=== PATIENT | female | born 1975 | race American Indian/Alaskan Native ===

== ENCOUNTER 2016-11-13 19:16 | Emergency (ER) | payer MEDICAID ==
[2016-11-13] MEDS ORDERED: Thiamine 100 MG, Folic Acid 1 MG, MVI, Adult with Vitamin K 10 ML in Lactated Ringers 1... IV ONE ×4 (19:40)
[2016-11-13] MEDS ORDERED: Famotidine 20 MG/2 ML SDV IVPUSH ONE (19:40)
[2016-11-13] MEDS ORDERED: Ondansetron 4 MG/2 ML SDV IV ONE (19:42)
[2016-11-13] MEDS ORDERED: Ketorolac 30 MG/ML SDV IVPUSH ONE (19:43)
--- NOTE | 2016-11-13 19:44 | EDM.PDOC ---
ED HPI GENERAL MEDICAL PROBLEM - General Chief Complaint: Back Pain or Injury Stated Complaint: PAIN UP BACK, [id number] Time Seen by Provider: 11/13/16 19:20 Source of Information: Reports: Patient History Limitations: Reports: No Limitations - History of Present Illness INITIAL COMMENTS - FREE TEXT/NARRATIVE: Sudden onset mid back and left scapular pain for past 1.5 hours. Has had similar pain in past with no findings. Pain started while sitting in chair. Daughter reports no ETOH for 3 years and started drinking on Friday. Patient admits to beer and 40 Ounce today, weekend had a couple mixed shots of vodka. no prior nausea or vomiting. Has not tried anything for pain. Onset: Today, Sudden Location: Reports: Abdomen, Back Quality: Reports: Sharp Severity: Moderate Lower Back Pain Score (Numeric/FACES): 8 - Related Data Allergies Allergy/AdvReac Type Severity Reaction Status Date / Time acetaminophen Allergy Hives Verified 11/13/16 19:22 [From Comtrex Cold-Cough] dextromethorphan Allergy Hives Verified 11/13/16 19:22 [From Comtrex Cold-Cough] phenylephrine Allergy Hives Verified 11/13/16 19:22 [From Comtrex Cold-Cough] wool Allergy itchy Uncoded 03/18/15 02:59 Home Meds: Home Meds Pantoprazole [Protonix] 40 mg PO BID 10/05/14 [History] Potassium Chloride [Klor-Con M20] 20 meq PO DAILY 10/05/14 [History] Ferrous Sulfate [Ferrous Sulfate] 1 mg PO BID 03/18/15 [History] Past Medical History - Past Health History Medical/Surgical History: Denies Medical/Surgical History Gastrointestinal History: Reports: Cirrhosis, GI Bleed Other Gastrointestinal History: liver cirrhosis, gallbladder polyps [employer]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: Hematologic History: Reports: Anemia - Infectious Disease History Infectious Disease History: Reports: None - Past Surgical History GI Surgical History: Reports: None Social & Family History - Tobacco Use Smoking Status *Q: Current Every Day Smoker Years of Tobacco use: 1 Packs/Tins Daily: 0.2 Used Tobacco, but Quit: No Month Tobacco Last Used: august 2014 Second Hand Smoke Exposure: Yes - Alcohol Use Days Per Week of Alcohol Use: 3 Number of Drinks Per Day: 18 Total Drinks Per Week: 54 - Recreational Drug Use Recreational Drug Use: No Drug Use in Last 12 Months: No ED ROS GENERAL - Review of Systems Review Of Systems: ROS reveals no pertinent complaints other than HPI. ED EXAM, UPPER BACK/NECK PAIN - Physical Exam Exam: See Below Exam Limited By: No Limitations General Appearance: Alert, Moderate Distress, Other (strong ETOH odor) Eye Exam: Bilateral Eye: EOMI (sclera injected) Ears Exam: Normal External Exam Nose Exam: Normal Inspection Throat/Mouth Exam: Normal Inspection Cardiovascular/Respiratory: Regular Rate, Rhythm, Normal Peripheral Pulses GI/Abdominal: Normal Bowel Sounds, Soft, No Distention, Tender (epigastric and left upper quadrant). No: Distended, Guarding Back Exam: Paraspinal Tenderness (thoracic left worse below scapula ). No: CVA Tenderness (L), CVA Tenderness (R) Extremities: Normal Range of Motion Psychiatric: Other (restless) Course - Vital Signs Last Recorded V/S: Last Vital Signs Temp 97.9 F 11/13/16 19:18 Pulse 81 11/13/16 19:18 Resp 18 11/13/16 19:18 BP 131/84 11/13/16 19:18 Pulse Ox 98 11/13/16 19:18 - Orders/Labs/Meds Labs: Laboratory Tests 11/13/16 11/13/16 11/13/16 Range/Units 19:48 19:48 19:48 WBC 8.4 (5.0-10.0) 10^3/uL RBC 4.19 L (4.2-5.4) 10^6/uL Hgb 12.1 (12.0-16.0) g/dL Hct 36.0 L (37.0-47.0) % MCV 85.9 (80-100) fL MCH 28.9 (27.0-34.0) pg MCHC 33.6 (33.0-35.0) g/dL Plt Count 208 (150-450) 10^3/uL Neut % (Auto) 58.3 (42.2-75.2) % Lymph % (Auto) 33.8 (20.5-50.1) % [place] % (Auto) 5.5 (2-8) % Eos % (Auto) 1.3 (1.0-3.0) % Baso % (Auto) 1.1 H (0.0-1.0) % PT 10.7 (9.0-12.0) SEC INR 1.1 (0.9-1.2) Sodium 142 (135-145) mmol/L Potassium 3.7 (3.6-5.0) mmol/L Chloride 106 (101-111) mmol/L Carbon Dioxide 23.0 (21.0-31.0) mmol/L Anion Gap 16.7 BUN 9 (7-18) mg/dL Creatinine 0.7 (0.6-1.3) mg/dL Est Cr Clr Drug Dosing 103.89 mL/min Estimated GFR (MDRD) > 60 BUN/Creatinine Ratio 12.85 Glucose 82 (74-105) mg/dL Calcium 8.7 (8.4-10.2) mg/dl Total Bilirubin 0.8 (0.2-1.0) mg/dL AST 33 (10-42) IU/L ALT 24 (10-60) IU/L Alkaline Phosphatase 92 (42-121) IU/L Ammonia (11-35) umol/L Total Protein 7.8 (6.7-8.2) g/dl Albumin 4.1 (3.2-5.5) g/dl Globulin 3.7 Albumin/Globulin Ratio 1.11 Amylase 42 (28-100) U/L Lipase 28 (22-51) U/L Urine Color (YELLOW) Urine Appearance (CLEAR) Urine pH (5.0-9.0) Ur Specific Newborn (1.005-1.030) Urine Protein (NEGATIVE) Urine Glucose (UA) (NEGATIVE) Urine Ketones (NEGATIVE) Urine Occult Blood (NEGATIVE) Urine Nitrite (NEGATIVE) Urine Bilirubin (NEGATIVE) Urine Urobilinogen (0.2-1.0) mg/dL Ur Leukocyte Esterase (NEGATIVE) Urine RBC /HPF Urine WBC (0-5/HPF) /HPF Ur Epithelial Cells /HPF Urine Bacteria (0-FEW/HPF) /HPF Urine Mucus /LPF Urine Opiates Screen (NEGATIVE) Ur Oxycodone Screen (NEGATIVE) Urine Methadone Screen (NEGATIVE) Ur Barbiturates Screen (NEGATIVE) U Tricyclic Antidepress (NEGATIVE) Ur Phencyclidine Scrn (NEGATIVE) Ur Amphetamine Screen (NEGATIVE) U Methamphetamines Scrn (NEGATIVE) Urine MDMA Screen (NEGATIVE) U Benzodiazepines Scrn (NEGATIVE) Urine Cocaine Screen (NEGATIVE) U Marijuana (THC) Screen (NEGATIVE) Ethyl Alcohol 211 mg/dL 06/14/17 06/14/17 06/14/17 Range/Units 19:48 20:48 20:48 WBC (5.0-10.0) 10^3/uL RBC (4.2-5.4) 10^6/uL Hgb (12.0-16.0) g/dL Hct (37.0-47.0) % MCV (80-100) fL MCH (27.0-34.0) pg MCHC (33.0-35.0) g/dL Plt Count (150-450) 10^3/uL Neut % (Auto) (42.2-75.2) % Lymph % (Auto) (20.5-50.1) % [place] % (Auto) (2-8) % Eos % (Auto) (1.0-3.0) % Baso % (Auto) (0.0-1.0) % PT (9.0-12.0) SEC INR (0.9-1.2) Sodium (135-145) mmol/L Potassium (3.6-5.0) mmol/L Chloride (101-111) mmol/L Carbon Dioxide (21.0-31.0) mmol/L Anion Gap BUN (7-18) mg/dL Creatinine (0.6-1.3) mg/dL Est Cr Clr Drug Dosing mL/min Estimated GFR (MDRD) BUN/Creatinine Ratio Glucose (74-105) mg/dL Calcium (8.4-10.2) mg/dl Total Bilirubin (0.2-1.0) mg/dL AST (10-42) IU/L ALT (10-60) IU/L Alkaline Phosphatase (42-121) IU/L Ammonia 20 (11-35) umol/L Total Protein (6.7-8.2) g/dl Albumin (3.2-5.5) g/dl Globulin Albumin/Globulin Ratio Amylase (28-100) U/L Lipase (22-51) U/L Urine Color Yellow (YELLOW) Urine Appearance Slightly cloudy (CLEAR) Urine pH 6.0 (5.0-9.0) Ur Specific Newborn 1.010 (1.005-1.030) Urine Protein Negative (NEGATIVE) Urine Glucose (UA) Negative (NEGATIVE) Urine Ketones Negative (NEGATIVE) Urine Occult Blood Negative (NEGATIVE) Urine Nitrite Negative (NEGATIVE) Urine Bilirubin Negative (NEGATIVE) Urine Urobilinogen >=8.0 H (0.2-1.0) mg/dL Ur Leukocyte Esterase Negative (NEGATIVE) Urine RBC 0-5 /HPF Urine WBC 0-5 (0-5/HPF) /HPF Ur Epithelial Cells Few /HPF Urine Bacteria Rare (0-FEW/HPF) /HPF Urine Mucus Rare /LPF Urine Opiates Screen Negative (NEGATIVE) Ur Oxycodone Screen Negative (NEGATIVE) Urine Methadone Screen Negative (NEGATIVE) Ur Barbiturates Screen Negative (NEGATIVE) U Tricyclic Antidepress Negative (NEGATIVE) Ur Phencyclidine Scrn Negative (NEGATIVE) Ur Amphetamine Screen Negative (NEGATIVE) U Methamphetamines Scrn Negative (NEGATIVE) Urine MDMA Screen Negative (NEGATIVE) U Benzodiazepines Scrn Negative (NEGATIVE) Urine Cocaine Screen Negative (NEGATIVE) U Marijuana (THC) Screen Positive H (NEGATIVE) Ethyl Alcohol mg/dL Meds: Medications Discontinued Medications Generic Name Dose Route Start Last Admin Trade Name Freq PRN Reason Stop Dose Admin Famotidine 20 mg 11/13/16 19:40 11/13/16 20:03 Pepcid IVPUSH 11/13/16 19:41 20 mg ONETIME ONE Administration Thiamine HCl 100 mg/ Folic 1,011.2 mls @ 999 mls/hr 11/13/16 19:40 11/13/16 20:09 Acid 1 mg/ Multivitamins/ IV 11/13/16 20:40 999 mls/hr Minerals 10 ml/ Lactated .BOLUS ONE Administration Ringer's Ketorolac Tromethamine 30 mg 11/13/16 19:43 11/13/16 19:59 Toradol IVPUSH 11/13/16 19:44 30 mg ONETIME ONE Administration Ondansetron HCl 4 mg 11/13/16 19:42 11/13/16 19:57 Zofran IV 11/13/16 19:43 4 mg ONETIME ONE Administration - Radiology Interpretation Free Text/Narrative:: pain improved visiting with family texting on phone, sitting upright in bed. Departure - Departure Time of Disposition: 21:12 Disposition: Home, Self-Care 01 Condition: Good Clinical Impression: Gastritis Qualifiers: Gastritis type: alcoholic Chronicity: acute Gastritis bleeding: without bleeding Qualified Code(s): K29.20 - Alcoholic gastritis without bleeding - Discharge Information Instructions: Gastritis, Adult, [id number] Forms: ED Department Discharge Additional Instructions: no alcohol bland diet follow up in clinic next week protonix as previously ordered
[2016-11-13 20:20] LABS: CHLORIDE,CL 106 mmol/L (101-111); SODIUM,NA 142 mmol/L (135-145)
[2016-11-13 21:20] VITALS: BP 137/76
== END 2016-11-13 21:21 | disposition home or self-care (01) ==
LOC: DL.ED 19:16
DX: K29.20 Alcoholic gastritis without bleeding (principal); F17.210 Nicotine dependence, cigarettes, uncomplicated; Z88.8 Allergy status to other drugs, medicaments and biological substances; Z91.048 Other nonmedicinal substance allergy status; D64.9 Anemia, unspecified
CPT/HCPCS: 36415; 80053; 80305; 81001; 82140; 82150; 83690; 85025; 85610; 96365; 96375; 99283; G0480; J1885; J2405; J3411; J7120; J3490; S0028

== ENCOUNTER 2017-03-11 18:34 | Emergency (ER) | payer MEDICAID ==
[2017-03-11 18:44] VITALS: BP 107/71
--- NOTE | 2017-03-11 20:33 | EDM.PDOC ---
ED HPI GENERAL MEDICAL PROBLEM - General Chief Complaint: Lower Extremity Injury/Pain Stated Complaint: FELL, HURT KNEE Time Seen by Provider: 03/11/17 20:25 Source of Information: Reports: Patient History Limitations: Reports: No Limitations - History of Present Illness INITIAL COMMENTS - FREE TEXT/NARRATIVE: This 42 yo female patient reports to the ED with left knee pain due to falling off her deck at about 1700 tonight. The patient reports increased pain with movement and walking. The patient reports no previous injuries to the knee. Onset: Today Onset Date: 03/11/17 Onset Time: 17:00 Duration: Constant Location: Reports: Lower Extremity, Left Quality: Reports: Ache, Dull Severity: Moderate Improves with: Reports: None Worsens with: Reports: None Associated Symptoms: Reports: No Other Symptoms Left Knee Pain Score (Numeric/FACES): 3 - Related Data Allergies Allergy/AdvReac Type Severity Reaction Status Date / Time acetaminophen Allergy Hives Verified 03/11/17 18:44 [From Comtrex Cold-Cough] dextromethorphan Allergy Hives Verified 03/11/17 18:44 [From Comtrex Cold-Cough] phenylephrine Allergy Hives Verified 03/11/17 18:44 [From Comtrex Cold-Cough] wool Allergy itchy Uncoded 03/11/17 18:44 Home Meds: Home Meds Pantoprazole [Protonix] 40 mg PO BID 10/05/14 [History] Potassium Chloride [Klor-Con M20] 20 meq PO DAILY 10/05/14 [History] Ferrous Sulfate [Ferrous Sulfate] 1 mg PO BID 03/18/15 [History] Past Medical History - Past Health History Medical/Surgical History: Denies Medical/Surgical History Gastrointestinal History: Reports: Cirrhosis, GI Bleed Other Gastrointestinal History: liver cirrhosis, gallbladder 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: Hematologic History: Reports: Anemia - Infectious Disease History Infectious Disease History: Reports: TB - Past Surgical History GI Surgical History: Reports: None Social & Family History - Tobacco Use Smoking Status *Q: Never Smoker Years of Tobacco use: 1 Packs/Tins Daily: 0.2 Used Tobacco, but Quit: No Month Tobacco Last Used: august 2014 Second Hand Smoke Exposure: Yes - Alcohol Use Days Per Week of Alcohol Use: 3 Number of Drinks Per Day: 18 Total Drinks Per Week: 54 - Recreational Drug Use Recreational Drug Use: No Drug Use in Last 12 Months: No Review of Systems - Review of Systems Review Of Systems: ROS reveals no pertinent complaints other than HPI. ED EXAM, GENERAL - Physical Exam Exam: See Below Exam Limited By: No Limitations General Appearance: Alert, WD/WN, Moderate Distress Eye Exam: Bilateral Eye: EOMI, Normal Inspection, PERRL Ears: Normal External Exam, Normal Canal, Hearing Grossly Normal, Normal TMs Nose: Normal Inspection, Normal Mucosa, No Blood Throat/Mouth: Normal Inspection, Normal Lips, Normal Teeth, Normal Gums, Normal Oropharynx, Normal Voice, No Airway Compromise Head: Atraumatic, Normocephalic Neck: Normal Inspection, Supple, Non-Tender, Full Range of Motion Respiratory/Chest: No Respiratory Distress, Lungs Clear, Normal Breath Sounds, No Accessory Muscle Use, Chest Non-Tender Cardiovascular: Normal Peripheral Pulses, Regular Rate, Rhythm, No Edema, No Gallop, No JVD, No Murmur, No Rub GI/Abdominal: Normal Bowel Sounds, Soft, Non-Tender, No Organomegaly, No Distention, No Abnormal Bruit, No Mass (Female) Exam: Deferred Rectal (Female) Exam: Deferred Back Exam: Normal Inspection, Full Range of Motion, NT Extremities: Leg Pain (left knee pain (bruising to left medial knee)), Limited Range of Motion Neurological: Alert, Oriented, CN II-XII Intact, Normal Cognition, Normal Gait, Normal Reflexes, No Motor/Sensory Deficits Psychiatric: Normal Affect, Normal Mood Skin Exam: Warm, Dry, Intact, Normal Color, No Rash Lymphatic: No Adenopathy Course - Vital Signs Last Recorded V/S: Last Vital Signs Temp 36.4 C 03/11/17 18:40 Pulse 92 03/11/17 18:40 Resp 18 03/11/17 18:40 BP 107/71 03/11/17 18:40 Pulse Ox 99 03/11/17 18:40 Departure - Departure Time of Disposition: 20:34 Disposition: Home, Self-Care 01 Condition: Fair Clinical Impression: Contusion of left knee Qualifiers: Encounter type: initial encounter Qualified Code(s): S80.02XA - Contusion of left knee, initial encounter - Discharge Information Instructions: Knee Immobilizer, [id number], Contusion, [id number] Care Plan Goals: The patient was advised of the examination and x-ray results during the visit. The patient was placed in a knee immobilizer and given a set of crutches. The patient should rest, ice and elevate her left knee over the next 24 hours. If the patient has any additional symptoms or further concerns, the patient should follow-up with her primary care facility or return to the ED.
== END 2017-03-11 20:48 | disposition home or self-care (01) ==
LOC: DL.ED 18:34
DX: S80.02XA Contusion of left knee, initial encounter (principal); Z88.8 Allergy status to other drugs, medicaments and biological substances; W17.89XA Other fall from one level to another, initial encounter
CPT/HCPCS: 73562-LT; 99283

== ENCOUNTER 2017-04-21 15:07 | Emergency (ER) | payer MEDICAID ==
--- NOTE | 2017-04-21 16:43 | CR ---
Clinical history: 42-year-old female with left-sided chest wall and rib pain. Interpretation: PA and 2 oblique left rib detail films (BB marker high over the left axilla) unremark able. No sign of pathologic skeletal lesion, left rib fracture, underlying lung contusion, dependent pleura l effusion or... left-sided pneumothorax. Ipsilateral clavicle, scapula and proximal humerus unremarkable. Normal cardiac silhouette without alveolar edema or effusion. Mild bronchitic pattern but no lung mass or focal lobar pneumonia.
[2017-04-21 16:47] LABS: CHLORIDE,CL 103 mmol/L (101-111); SODIUM,NA 141 mmol/L (135-145)
[2017-04-21] MEDS ORDERED: Ketorolac 30 MG/ML SDV IM ONE (17:02)
--- NOTE | 2017-04-21 17:08 | EDM.PDOC ---
ED HPI GENERAL MEDICAL PROBLEM - General Chief Complaint: Chest Pain Stated Complaint: HEART HURTING Time Seen by Provider: 04/21/17 15:20 Source of Information: Reports: Patient History Limitations: Reports: No Limitations - History of Present Illness INITIAL COMMENTS - FREE TEXT/NARRATIVE: This 42 yo female patient reports to the ED with right sided anterior chest pain. The patient reports no history of trauma or a fall, but has pain when she touches her left chest. The patient has not taken anything for temporary symptom relief. Onset: Today Duration: Constant Location: Reports: Chest (left anterior chest) Quality: Reports: Ache, Sharp Severity: Moderate Improves with: Reports: None Worsens with: Reports: Other (palpation) Associated Symptoms: Reports: Chest Pain Chest Pain Score (Numeric/FACES): 7 - Related Data Allergies Allergy/AdvReac Type Severity Reaction Status Date / Time acetaminophen Allergy Hives Verified 03/11/17 18:44 [From Comtrex Cold-Cough] dextromethorphan Allergy Hives Verified 03/11/17 18:44 [From Comtrex Cold-Cough] phenylephrine Allergy Hives Verified 03/11/17 18:44 [From Comtrex Cold-Cough] wool Allergy itchy Uncoded 03/11/17 18:44 Home Meds: Home Meds Pantoprazole [Protonix] 40 mg PO BID 10/05/14 [History] Potassium Chloride [Klor-Con M20] 20 meq PO DAILY 10/05/14 [History] Ferrous Sulfate [Ferrous Sulfate] 1 mg PO BID 03/18/15 [History] Past Medical History - Past Health History Medical/Surgical History: Denies Medical/Surgical History Gastrointestinal History: Reports: Cirrhosis, GI Bleed Other Gastrointestinal History: liver cirrhosis, gallbladder 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: Hematologic History: Reports: Anemia - Infectious Disease History Infectious Disease History: Reports: TB - Past Surgical History GI Surgical History: Reports: None Social & Family History - Tobacco Use Smoking Status *Q: Never Smoker Years of Tobacco use: 1 Packs/Tins Daily: 0.2 Used Tobacco, but Quit: No Month Tobacco Last Used: august 2014 Second Hand Smoke Exposure: Yes - Alcohol Use Days Per Week of Alcohol Use: 3 Number of Drinks Per Day: 18 Total Drinks Per Week: 54 - Recreational Drug Use Recreational Drug Use: No Drug Use in Last 12 Months: No ED ROS GENERAL - Review of Systems Review Of Systems: ROS reveals no pertinent complaints other than HPI. ED EXAM, GENERAL - Physical Exam Exam: See Below Exam Limited By: No Limitations General Appearance: Alert, WD/WN, Moderate Distress Eye Exam: Bilateral Eye: EOMI, Normal Inspection, PERRL Ears: Normal External Exam, Normal Canal, Hearing Grossly Normal, Normal TMs Nose: Normal Inspection, Normal Mucosa, No Blood Throat/Mouth: Normal Inspection, Normal Lips, Normal Teeth, Normal Gums, Normal Oropharynx, Normal Voice, No Airway Compromise Head: Atraumatic, Normocephalic Neck: Normal Inspection, Supple, Non-Tender, Full Range of Motion Respiratory/Chest: No Respiratory Distress, Lungs Clear, Normal Breath Sounds, No Accessory Muscle Use, Other (left sided tenderness to palpation of the pectoral muscle. ) Cardiovascular: Normal Peripheral Pulses, Regular Rate, Rhythm, No Edema, No Gallop, No JVD, No Murmur, No Rub GI/Abdominal: Normal Bowel Sounds, Soft, Non-Tender, No Organomegaly, No Distention, No Abnormal Bruit, No Mass (Female) Exam: Deferred Rectal (Female) Exam: Deferred Back Exam: Normal Inspection, Full Range of Motion, NT Extremities: Normal Inspection, Normal Range of Motion, Non-Tender, Normal Capillary Refill, No Pedal Edema Neurological: Alert, Oriented, CN II-XII Intact, Normal Cognition, Normal Gait, Normal Reflexes, No Motor/Sensory Deficits Psychiatric: Normal Affect, Normal Mood Skin Exam: Warm, Dry, Intact, Normal Color, No Rash Lymphatic: No Adenopathy Course - Vital Signs Last Recorded V/S: Last Vital Signs Temp 36.6 C 04/21/17 15:09 Pulse 91 04/21/17 15:09 Resp 18 04/21/17 15:09 BP 138/101 H 04/21/17 15:09 Pulse Ox 99 04/21/17 15:09 - Orders/Labs/Meds Labs: Laboratory Tests 04/21/17 04/21/17 Range/Units 16:22 16:22 WBC 6.7 (5.0-10.0) 10^3/uL RBC 4.59 (4.2-5.4) 10^6/uL Hgb 12.6 (12.0-16.0) g/dL Hct 39.0 (37.0-47.0) % MCV 85.0 (80-100) fL MCH 27.5 (27.0-34.0) pg MCHC 32.3 L (33.0-35.0) g/dL Plt Count 187 (150-450) 10^3/uL Neut % (Auto) 59.1 (42.2-75.2) % Lymph % (Auto) 23.1 (20.5-50.1) % [place] % (Auto) 10.3 H (2-8) % Eos % (Auto) 5.7 H (1.0-3.0) % Baso % (Auto) 1.8 H (0.0-1.0) % Add Manual Diff Yes Neutrophils % (Manual) 62 (42-75) % Lymphocytes % (Manual) 23 (20-50) % Monocytes % (Manual) 8 (2-8) % Eosinophils % (Manual) 7 H (1-3) % Sodium 141 (135-145) mmol/L Potassium 3.5 L (3.6-5.0) mmol/L Chloride 103 (101-111) mmol/L Carbon Dioxide 24.0 (21.0-31.0) mmol/L Anion Gap 17.5 BUN 5 L (7-18) mg/dL Creatinine 0.6 (0.6-1.3) mg/dL Est Cr Clr Drug Dosing 115.51 mL/min Estimated GFR (MDRD) > 60 BUN/Creatinine Ratio 8.33 Glucose 89 (74-105) mg/dL Calcium 8.9 (8.4-10.2) mg/dl Total Bilirubin 0.9 (0.2-1.0) mg/dL AST 130 H (10-42) IU/L ALT 98 H (10-60) IU/L Alkaline Phosphatase 113 (42-121) IU/L Total Protein 9.0 H (6.7-8.2) g/dl Albumin 4.4 (3.2-5.5) g/dl Globulin 4.6 Albumin/Globulin Ratio 0.96 Meds: Medications Discontinued Medications Generic Name Dose Route Start Last Admin Trade Name Freq PRN Reason Stop Dose Admin Ketorolac Tromethamine 60 mg 04/21/17 17:02 Toradol IM 04/21/17 17:03 ONETIME ONE Departure - Departure Time of Disposition: 17:05 Disposition: Home, Self-Care 01 Condition: Fair Clinical Impression: Strain of chest wall Qualifiers: Encounter type: initial encounter Qualified Code(s): S29.011A - Strain of muscle and tendon of front wall of thorax, initial encounter - Discharge Information Instructions: Muscle Strain, [id number] Forms: ED Department Discharge Care Plan Goals: The patient and family were advised of the examination, lab and x-ray results during the visit. The patient was given an injection of Toradol while in the ED. The patient was discharged with a script for Toradol (10 mg) #20 to take 1 by mouth every 6 hours for pain. If the patient has any additional symptoms or concerns, the patient should follow-up with her primary care facility for continued evaluation and further management.
[2017-04-21 18:09] VITALS: BP 138/90
== END 2017-04-21 17:33 | disposition home or self-care (01) ==
LOC: DL.ED 15:07
DX: S29.011A Strain of muscle and tendon of front wall of thorax, initial encounter (principal); Z77.22 Contact with and (suspected) exposure to environmental tobacco smoke (acute) (chronic); Z79.899 Other long term (current) drug therapy; Z88.6 Allergy status to analgesic agent; Z88.8 Allergy status to other drugs, medicaments and biological substances; Z91.048 Other nonmedicinal substance allergy status; X58.XXXA Exposure to other specified factors, initial encounter
CPT/HCPCS: 36415; 71101; 80053; 85025; 96372; 99285; J1885

== ENCOUNTER 2018-03-04 14:53 | Emergency (ER) | payer MEDICAID ==
--- NOTE | 2018-03-04 14:55 | EDM.PDOC ---
ED HPI GENERAL MEDICAL PROBLEM - General Chief Complaint: Abdominal Pain Stated Complaint: ABOMINAL PAIN Time Seen by Provider: 03/04/18 14:54 Source of Information: Reports: Patient, EMS, Family, Old Records, RN, RN Notes Reviewed History Limitations: Reports: Intoxication - History of Present Illness INITIAL COMMENTS - FREE TEXT/NARRATIVE: Pt arrives to ER from home by ambulance with c/o onset of lower abdominal pain and fevers yesterday. Pt denies nausea, vomiting, diarrhea, constipation, or dysuria. Also denies cough, headache, neck pain or stiffness, or sore throat. She admits to current menses. Admits to heavy daily alcohol consumption. She reports Hx of alcoholic cirrhosis. Onset: Gradual Duration: Constant Location: Reports: Abdomen Quality: Reports: Ache Severity: Severe Improves with: Reports: None Worsens with: Reports: None Associated Symptoms: Reports: No Other Symptoms Bilateral Lower Abdomen Pain Score (Numeric/FACES): 7 - Related Data Allergies Allergy/AdvReac Type Severity Reaction Status Date / Time acetaminophen Allergy Hives Verified 03/04/18 15:01 [From Comtrex Cold-Cough] dextromethorphan Allergy Hives Verified 03/04/18 15:01 [From Comtrex Cold-Cough] phenylephrine Allergy Hives Verified 03/04/18 15:01 [From Comtrex Cold-Cough] wool Allergy itchy Uncoded 03/04/18 15:01 Home Meds: Home Meds . 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 HAND History: Reports: LMP (Approximate): Menstruating Psychiatric History: Reports: Addiction (alcohol) Hematologic History: Reports: Anemia - Infectious Disease History Infectious Disease History: Reports: TB - Past Surgical History GI Surgical History: Reports: None Social & Family History - Family History Family Medical History: Unobtainable - Tobacco Use Smoking Status *Q: Current Every Day Smoker Tobacco Use Within Last Twelve Months: Cigarettes - Alcohol Use Alcohol Use History: Yes Days Per Week of Alcohol Use: 7 (Heavy daily drinker per family.) Alcohol Use Frequency: Daily - Recreational Drug Use Recreational Drug Use: No - Living Situation & Occupation Living situation: Reports: with Family Occupation: Unemployed ED ROS GENERAL - Review of Systems Review Of Systems: ROS reveals no pertinent complaints other than HPI. ED EXAM, GI/ABD - Physical Exam Exam: See Below Exam Limited By: Intoxication General Appearance: Alert, No Apparent Distress, Other (acutely ill but non- toxic appearing) Eyes: Bilateral: Normal Appearance, EOMI Ears: Normal External Exam, Hearing Grossly Normal Nose: Normal Inspection, Normal Mucosa, No Blood Throat/Mouth: Normal Inspection, Normal Lips, Normal Oropharynx, Normal Voice, No Airway Compromise Head: Atraumatic, Normocephalic Neck: Normal Inspection, Supple, Non-Tender, Full Range of Motion, Other (No nuchal rigidity). No: Lymphadenopathy (L), Lymphadenopathy (R) Respiratory/Chest: No Respiratory Distress, Lungs Clear, Normal Breath Sounds, No Accessory Muscle Use, Chest Non-Tender Cardiovascular: Regular Rate, Rhythm, No Edema, Tachycardia GI/Abdominal Exam: Normal Bowel Sounds, Soft, No Distention, No Abnormal Bruit, Pelvis Stable, Guarding, Tender (acutely tender to palpation at RLQ abdomen). No: Rigid, Rebound (Female) Exam: Deferred, Vaginal Bleeding (menses) Rectal (Female) Exam: Deferred Back Exam: Full Range of Motion, CVA Tenderness (R). No: CVA Tenderness (L) Extremities: Normal Inspection, Normal Range of Motion, Non-Tender, Normal Capillary Refill, No Pedal Edema Neurological: Alert, Oriented, CN II-XII Intact, Normal Cognition, No Motor/ Sensory Deficits Psychiatric: Normal Affect, Normal Mood Skin Exam: Warm, Dry, Intact, Normal Color, No Rash Course - Vital Signs Last Recorded V/S: Last Vital Signs Temp 39.4 C H 03/04/18 16:47 Pulse 117 H 03/04/18 16:47 Resp 22 H 03/04/18 16:47 BP 109/65 03/04/18 16:47 Pulse Ox 95 03/04/18 16:47 - Orders/Labs/Meds Orders: Active Orders 24 hr Category Date Time Status Peripheral IV Care [RC] . DIRECTED Care 03/04/18 15:15 Active CULTURE BLOOD [BC] Stat Lab 03/04/18 15:25 Received CULTURE BLOOD [BC] Stat Lab 03/04/18 15:30 Results CULTURE STREP A CONFIRMATION [RM] Stat Lab 03/04/18 17:04 Results STREP SCRN A RAPID W CULT CONF [RM] Stat Lab 03/04/18 17:04 Results Sodium Chloride 0.9% [Normal Saline] 1,000 ml Med 03/04/18 18:10 Active IV .BOLUS Sodium Chloride 0.9% [Saline Flush] Med 03/04/18 15:15 Active 10 ml FLUSH ASDIRECTED PRN Blood Culture x2 Reflex Set [OM.PC] Stat Oth 03/04/18 15:15 Ordered Peripheral IV Insertion Adult [OM.PC] Stat Oth 03/04/18 15:15 Ordered Medication Orders Sodium Chloride (Normal Saline) 1,000 mls @ 999 mls/hr IV .BOLUS ONE Stop: 03/04/18 19:10 Last Admin: 03/04/18 18:13 Dose: 999 mls/hr Sodium Chloride (Saline Flush) 10 ml FLUSH ASDIRECTED PRN PRN Reason: Keep Vein Open Labs: Laboratory Tests 03/04/18 03/04/18 03/04/18 Range/Units 15:25 15:25 15:25 WBC 21.3 H (5.0-10.0) 10^3/uL RBC 3.51 L (4.2-5.4) 10^6/uL Hgb 8.0 L D (12.0-16.0) g/dL Hct 26.6 L (37.0-47.0) % MCV 75.8 L D (80-100) fL MCH 22.8 L (27.0-34.0) pg MCHC 30.1 L (33.0-35.0) g/dL Plt Count 162 (150-450) 10^3/uL Neut % (Auto) 89.5 H (42.2-75.2) % Lymph % (Auto) 7.4 L (20.5-50.1) % [place] % (Auto) 2.5 (2-8) % Eos % (Auto) 0.3 L (1.0-3.0) % Baso % (Auto) 0.3 (0.0-1.0) % Sodium 138 (135-145) mmol/L Potassium 3.4 L (3.6-5.0) mmol/L Chloride 104 (101-111) mmol/L Carbon Dioxide 22.0 (21.0-31.0) mmol/L Anion Gap 15.4 BUN 6 L (7-18) mg/dL Creatinine 0.5 L (0.6-1.3) mg/dL Est Cr Clr Drug Dosing 137.21 mL/min Estimated GFR (MDRD) > 60 BUN/Creatinine Ratio 12.00 Glucose 91 (74-105) mg/dL Lactic Acid (0.5-2.2) mmol/L Calcium 7.6 L (8.4-10.2) mg/dl Total Bilirubin 1.0 (0.2-1.0) mg/dL AST 48 H (10-42) IU/L ALT 44 (10-60) IU/L Alkaline Phosphatase 126 H (42-121) IU/L Ammonia 27 (11-35) umol/L Total Protein 7.9 (6.7-8.2) g/dl Albumin 3.4 (3.2-5.5) g/dl Globulin 4.5 Albumin/Globulin Ratio 0.76 Amylase 52 (28-100) U/L Lipase 20 L (22-51) U/L Urine Color (YELLOW) Urine Appearance (CLEAR) Urine pH (5.0-9.0) Ur Specific [place] (1.005-1.030) Urine Protein (NEGATIVE) Urine Glucose (UA) (NEGATIVE) Urine Ketones (NEGATIVE) Urine Occult Blood (NEGATIVE) Urine Nitrite (NEGATIVE) Urine Bilirubin (NEGATIVE) Urine Urobilinogen (0.2-1.0) mg/dL Ur Leukocyte Esterase (NEGATIVE) Urine RBC /HPF Urine WBC (0-5/HPF) /HPF Ur Epithelial Cells /HPF Urine Bacteria (0-FEW/HPF) /HPF Urine HCG, Qual Urine Opiates Screen (NEGATIVE) Ur Oxycodone Screen (NEGATIVE) Urine Methadone Screen (NEGATIVE) Ur Barbiturates Screen (NEGATIVE) U Tricyclic Antidepress (NEGATIVE) Ur Phencyclidine Scrn (NEGATIVE) Ur Amphetamine Screen (NEGATIVE) U Methamphetamines Scrn (NEGATIVE) Urine MDMA Screen (NEGATIVE) U Benzodiazepines Scrn (NEGATIVE) Urine Cocaine Screen (NEGATIVE) U Marijuana (THC) Screen (NEGATIVE) Ethyl Alcohol 365 mg/dL 03/04/18 03/04/18 03/04/18 Range/Units 15:25 17:11 17:11 WBC (5.0-10.0) 10^3/uL RBC (4.2-5.4) 10^6/uL Hgb (12.0-16.0) g/dL Hct (37.0-47.0) % MCV (80-100) fL MCH (27.0-34.0) pg MCHC (33.0-35.0) g/dL Plt Count (150-450) 10^3/uL Neut % (Auto) (42.2-75.2) % Lymph % (Auto) (20.5-50.1) % [place] % (Auto) (2-8) % Eos % (Auto) (1.0-3.0) % Baso % (Auto) (0.0-1.0) % Sodium (135-145) mmol/L Potassium (3.6-5.0) mmol/L Chloride (101-111) mmol/L Carbon Dioxide (21.0-31.0) mmol/L Anion Gap BUN (7-18) mg/dL Creatinine (0.6-1.3) mg/dL Est Cr Clr Drug Dosing mL/min Estimated GFR (MDRD) BUN/Creatinine Ratio Glucose (74-105) mg/dL Lactic Acid 2.9 H (0.5-2.2) mmol/L Calcium (8.4-10.2) mg/dl Total Bilirubin (0.2-1.0) mg/dL AST (10-42) IU/L ALT (10-60) IU/L Alkaline Phosphatase (42-121) IU/L Ammonia (11-35) umol/L Total Protein (6.7-8.2) g/dl Albumin (3.2-5.5) g/dl Globulin Albumin/Globulin Ratio Amylase (28-100) U/L Lipase (22-51) U/L Urine Color Yellow (YELLOW) Urine Appearance Clear (CLEAR) Urine pH 7.0 (5.0-9.0) Ur Specific [place] 1.015 (1.005-1.030) Urine Protein Negative (NEGATIVE) Urine Glucose (UA) Negative (NEGATIVE) Urine Ketones Negative (NEGATIVE) Urine Occult Blood Negative (NEGATIVE) Urine Nitrite Negative (NEGATIVE) Urine Bilirubin Negative (NEGATIVE) Urine Urobilinogen 1.0 (0.2-1.0) mg/dL Ur Leukocyte Esterase Negative (NEGATIVE) Urine RBC 0-5 /HPF Urine WBC 0-5 (0-5/HPF) /HPF Ur Epithelial Cells Few /HPF Urine Bacteria Few (0-FEW/HPF) /HPF Urine HCG, Qual Negative Urine Opiates Screen (NEGATIVE) Ur Oxycodone Screen (NEGATIVE) Urine Methadone Screen (NEGATIVE) Ur Barbiturates Screen (NEGATIVE) U Tricyclic Antidepress (NEGATIVE) Ur Phencyclidine Scrn (NEGATIVE) Ur Amphetamine Screen (NEGATIVE) U Methamphetamines Scrn (NEGATIVE) Urine MDMA Screen (NEGATIVE) U Benzodiazepines Scrn (NEGATIVE) Urine Cocaine Screen (NEGATIVE) U Marijuana (THC) Screen (NEGATIVE) Ethyl Alcohol mg/dL 03/04/18 Range/Units 17:11 WBC (5.0-10.0) 10^3/uL RBC (4.2-5.4) 10^6/uL Hgb (12.0-16.0) g/dL Hct (37.0-47.0) % MCV (80-100) fL MCH (27.0-34.0) pg MCHC (33.0-35.0) g/dL Plt Count (150-450) 10^3/uL Neut % (Auto) (42.2-75.2) % Lymph % (Auto) (20.5-50.1) % [place] % (Auto) (2-8) % Eos % (Auto) (1.0-3.0) % Baso % (Auto) (0.0-1.0) % Sodium (135-145) mmol/L Potassium (3.6-5.0) mmol/L Chloride (101-111) mmol/L Carbon Dioxide (21.0-31.0) mmol/L Anion Gap BUN (7-18) mg/dL Creatinine (0.6-1.3) mg/dL Est Cr Clr Drug Dosing mL/min Estimated GFR (MDRD) BUN/Creatinine Ratio Glucose (74-105) mg/dL Lactic Acid (0.5-2.2) mmol/L Calcium (8.4-10.2) mg/dl Total Bilirubin (0.2-1.0) mg/dL AST (10-42) IU/L ALT (10-60) IU/L Alkaline Phosphatase (42-121) IU/L Ammonia (11-35) umol/L Total Protein (6.7-8.2) g/dl Albumin (3.2-5.5) g/dl Globulin Albumin/Globulin Ratio Amylase (28-100) U/L Lipase (22-51) U/L Urine Color (YELLOW) Urine Appearance (CLEAR) Urine pH (5.0-9.0) Ur Specific [place] (1.005-1.030) Urine Protein (NEGATIVE) Urine Glucose (UA) (NEGATIVE) Urine Ketones (NEGATIVE) Urine Occult Blood (NEGATIVE) Urine Nitrite (NEGATIVE) Urine Bilirubin (NEGATIVE) Urine Urobilinogen (0.2-1.0) mg/dL Ur Leukocyte Esterase (NEGATIVE) Urine RBC /HPF Urine WBC (0-5/HPF) /HPF Ur Epithelial Cells /HPF Urine Bacteria (0-FEW/HPF) /HPF Urine HCG, Qual Urine Opiates Screen Positive H (NEGATIVE) Ur Oxycodone Screen Negative (NEGATIVE) Urine Methadone Screen Negative (NEGATIVE) Ur Barbiturates Screen Negative (NEGATIVE) U Tricyclic Antidepress Negative (NEGATIVE) Ur Phencyclidine Scrn Negative (NEGATIVE) Ur Amphetamine Screen Negative (NEGATIVE) U Methamphetamines Scrn Negative (NEGATIVE) Urine MDMA Screen Negative (NEGATIVE) U Benzodiazepines Scrn Negative (NEGATIVE) Urine Cocaine Screen Negative (NEGATIVE) U Marijuana (THC) Screen Negative (NEGATIVE) Ethyl Alcohol mg/dL Meds: Medications Generic Name Dose Route Start Last Admin Trade Name Freq PRN Reason Stop Dose Admin Sodium Chloride 1,000 mls @ 999 mls/hr 03/04/18 18:10 03/04/18 18:13 Normal Saline IV 03/04/18 19:10 999 mls/hr .BOLUS ONE Administration Sodium Chloride 10 ml 03/04/18 15:15 Saline Flush FLUSH ASDIRECTED PRN Keep Vein Open Discontinued Medications Generic Name Dose Route Start Last Admin Trade Name Freq PRN Reason Stop Dose Admin Acetaminophen 975 mg 03/04/18 18:10 03/04/18 18:14 Tylenol PO 03/04/18 18:11 975 mg NOW ONE Administration Sodium Chloride 1,000 mls @ 999 mls/hr 03/04/18 15:17 03/04/18 15:39 Normal Saline IV 03/04/18 16:17 999 mls/hr .BOLUS ONE Administration Piperacillin Sod/Tazobactam 100 mls @ 200 mls/hr 03/04/18 16:23 03/04/18 16: 45 Sod 3.375 gm/ Sodium Chloride IV 03/04/18 16:52 200 mls/hr ONETIME ONE Administration Ibuprofen 800 mg 03/04/18 18:08 03/04/18 18:14 Motrin PO 03/04/18 18:09 800 mg ONETIME ONE Administration Iopamidol 75 ml 03/04/18 16:24 03/04/18 16:48 Isovue-300 (61%) IVPUSH 03/04/18 16:25 75 ml ONETIME ONE Administration Morphine Sulfate 4 mg 03/04/18 15:17 03/04/18 15:40 Morphine IVPUSH 03/04/18 15:18 4 mg ONETIME ONE Administration Morphine Sulfate 4 mg 03/04/18 16:23 03/04/18 16:43 Morphine IVPUSH 03/04/18 16:24 4 mg ONETIME ONE Administration Ondansetron HCl 4 mg 03/04/18 15:17 03/04/18 15:39 Zofran IV 03/04/18 15:18 4 mg ONETIME ONE Administration - Radiology Interpretation Free Text/Narrative:: CT abdomen and pelvis: Normal appendix and kidneys. Fatty liver and cholelithiasis. Small volume free fluid in the pelvis. See rad report. - Re-Assessments/Exams Free Text/Narrative Re-Assessment/Exam: 03/04/18 Pt initially refused tylenol or ibuprofen due to "drug allergy". Eventually when her fever reached >104F she became willing to take both tylenol and ibuprofen, stating that she isn't supposed to take them due to her cirrhosis, but admits that she has not had an allergic reaction to either medications. Free Text/Narrative Re-Assessment/Exam: 03/04/18 No clear source of pt's infection has been determined. Pt is septic with WBC >21 ,000 and abdominal pain with fever. Plan to transfer pt to higher level of care for further evaluation with Dr. Gray nielsen. Departure - Departure Time of Disposition: 18:00 Disposition: DC/Tfer to Acute Hospital 02 Condition: Serious, Critical Clinical Impression: Lower abdominal pain, Chronic alcohol abuse Sepsis Qualifiers: Sepsis type: sepsis due to unspecified organism Qualified Code(s): A41.9 - Sepsis, unspecified organism Alcohol intoxication Qualifiers: Complication of substance-induced condition: with unspecified complication Qualified Code(s): F10.929 - Alcohol use, unspecified with intoxication, unspecified - Discharge Information *PRESCRIPTION DRUG MONITORING PROGRAM REVIEWED*: No *COPY OF PRESCRIPTION DRUG MONITORING REPORT IN PATIENT TIKI: No Forms: ED Department Discharge, Interfacility Transfer EMTALA - My Orders Last 24 Hours: My Active Orders 03/04/18 15:15 Peripheral IV Care [RC] . DIRECTED Sodium Chloride 0.9% [Saline Flush] 10 ml FLUSH ASDIRECTED PRN Blood Culture x2 Reflex Set [OM.PC] Stat Peripheral IV Insertion Adult [OM.PC] Stat 03/04/18 15:25 CULTURE BLOOD [BC] Stat 03/04/18 15:30 CULTURE BLOOD [BC] Stat 03/04/18 17:04 CULTURE STREP A CONFIRMATION [RM] Stat STREP SCRN A RAPID W CULT CONF [RM] Stat 03/04/18 18:10 Sodium Chloride 0.9% [Normal Saline] 1,000 ml IV .BOLUS - Assessment/Plan Last 24 Hours: My Active Orders 03/04/18 15:15 Peripheral IV Care [RC] . DIRECTED Sodium Chloride 0.9% [Saline Flush] 10 ml FLUSH ASDIRECTED PRN Blood Culture x2 Reflex Set [OM.PC] Stat Peripheral IV Insertion Adult [OM.PC] Stat 03/04/18 15:25 CULTURE BLOOD [BC] Stat 03/04/18 15:30 CULTURE BLOOD [BC] Stat 03/04/18 17:04 CULTURE STREP A CONFIRMATION [RM] Stat STREP SCRN A RAPID W CULT CONF [RM] Stat 03/04/18 18:10 Sodium Chloride 0.9% [Normal Saline] 1,000 ml IV .BOLUS
[2018-03-04] MEDS ORDERED: Sodium Chloride 0.9% 10 ML Syringe FLUSH PRN (15:15)
[2018-03-04] MEDS ORDERED: Sodium Chloride 0.9% 1,000 ML IV ONE ×2 (15:17→18:10)
[2018-03-04] MEDS ORDERED: Ondansetron 4 MG/2 ML SDV IV ONE (15:17)
[2018-03-04] MEDS ORDERED: Morphine 4 MG/ML Syringe IVPUSH ONE ×2 (15:17→16:23)
[2018-03-04 15:58] LABS: ANION GAP 15.4; CHLORIDE,CL 104 mmol/L (101-111); SODIUM,NA 138 mmol/L (135-145)
[2018-03-04] MEDS ORDERED: Piperacillin/Tazobactam 3.375 GM in Sodium Chloride 0.9% 100 ML IV ONE (16:23)
[2018-03-04] MEDS ORDERED: Iopamidol 612 MG/ML 75 ML Bottle IVPUSH ONE (16:24)
[2018-03-04 16:49] VITALS: BP 109/65
--- NOTE | 2018-03-04 17:16 | CT ---
Clinical history: 43-year-old 142 pound female smoker (abnormal elevated serum blood-alcohol) with ac telida abdomen, fever and abnormally elevated WBC (greater than 21,000). Scan technique: Volume acquisition of data emergency unenhanced CT scan of the abdomen and pelvis obt ained without oral contrast but during intravenous ministration 75 cc nonionic Isovue contrast (3 cc/ s via injector) while patient was lying supine on the Siemens multi slice scanner [place], [place]. All data archived in the PACS system for storage, reformatting axial/sa gittal/coronal planes and study. Interpretation: Abnormal. 1. Small collection of free fluid in the dependent cul-de-sac "bathing" the posterior wall of the nor mal-appearing midline uterus. Small ovarian cysts bilaterally. 2. Normal appendix identified RLQ (normal caliber appendix without calcification and no periappendice al abscess). Normal T. I. 3. Gallbladder distended RUQ with tiny dependent intraluminal gallstone. Uniformly thin gallbladder w all and no intra or extrahepatic biliary duct dilatation. Fatty liver but homogeneous density without discrete intrahepatic mass lesion. Negative spleen. 4. Stomach, pancreas, adrenal glands, kidneys unremarkable. No sign of renal cortical mass lesion, ne phrolithiasis or obstruction. 5. Symmetrically distended unenhanced urinary bladder. No intraluminal stones. 6. Lung bases clear. CONCLUSION: Normal appendix and kidneys. Fatty liver and Cholelithiasis. *Small volume free fluid in the pelvis.
[2018-03-04] MEDS ORDERED: Ibuprofen 800 MG Tab PO ONE (18:08)
[2018-03-04] MEDS ORDERED: Acetaminophen 325 MG Tab PO ONE (18:10)
== END 2018-03-04 18:49 ==
LOC: DL.ED 14:53
DX: A41.9 Sepsis, unspecified organism (principal); R10.31 Right lower quadrant pain; R10.32 Left lower quadrant pain; F10.129 Alcohol abuse with intoxication, unspecified; F17.210 Nicotine dependence, cigarettes, uncomplicated; Z88.6 Allergy status to analgesic agent; Z88.8 Allergy status to other drugs, medicaments and biological substances; Y90.8 Blood alcohol level of 240 mg/100 ml or more
CPT/HCPCS: 36415; 74177; 80053; 80305; 81001; 81025; 82140; 82150; 83605; 83690; 85025; 87040; 87081; 87430; 87804; 96361; 96365; 96375; 96376; 99285; A9270; G0480; J2270; J2405; J2543; J7030; J7050; Q9967

== ENCOUNTER 2018-08-10 18:31 | Emergency (ER) | payer MEDICAID ==
[2018-08-10] MEDS ORDERED: MVI, Adult with Vitamin K 10 ML, Folic Acid 1 MG, Thiamine 100 MG in Lactated Ringers 1... IV ONE ×4 (18:54)
[2018-08-10] MEDS ORDERED: Ondansetron 4 MG/2 ML SDV IV ONE (18:54)
--- NOTE | 2018-08-10 19:19 | EDM.PDOC ---
ED HPI GENERAL MEDICAL PROBLEM - General Chief Complaint: Abdominal Pain Stated Complaint: AMBULANCE Time Seen by Provider: 08/10/18 19:05 Source of Information: Reports: Patient History Limitations: Reports: No Limitations - History of Present Illness INITIAL COMMENTS - FREE TEXT/NARRATIVE: This 43 yo female patient was brought to the ED by [facility] due to abdominal pain, nausea, vomiting and diarrhea. The patient reports her symptoms started 2 days ago, but has been getting worse today. The patient reports she took 1 dose of Zofran this morning at 10 and 1 dose of Tylenol yesterday. The patient reports she has been drinking ETOH for the past 3-4 days with her last drink this morning ("vodka mixer"). The patient reports she has had 5 loose bowel movements today and has diffuse abdominal pain epigastric to the left lower quadrant. 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 (yesterday), IV/IO Middle Abdomen Pain Score (Numeric/FACES): 7 - Related Data Allergies Allergy/AdvReac Type Severity Reaction Status Date / Time acetaminophen Allergy Hives Verified 08/10/18 19:47 [From Comtrex Cold-Cough] dextromethorphan Allergy Hives Verified 08/10/18 19:47 [From Comtrex Cold-Cough] phenylephrine Allergy Hives Verified 08/10/18 19:47 [From Comtrex Cold-Cough] wool Allergy itchy Uncoded 08/10/18 19:47 Home Meds: Home Meds Ferrous Sulfate [Iron] 325 mg PO BID 05/09/18 [History] Pantoprazole Sodium 40 mg PO DAILY 05/09/18 [History] Ondansetron [Zofran] 4 mg PO Q6H PRN 08/10/18 [History] Past Medical History - Past Health History Medical/Surgical History: Denies Medical/Surgical History HEENT History: Reports: Epistaxis Cardiovascular History: Reports: None Respiratory History: Reports: None Gastrointestinal History: Reports: Cirrhosis, GI Bleed Other Gastrointestinal History: liver cirrhosis, gallbladder polyps Genitourinary History: Reports: None 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: 05/09/2018 States she is on her monthly and flow has been heavy Neurological History: Reports: None Psychiatric History: Reports: Addiction Endocrine/Metabolic History: Reports: None Hematologic History: Reports: Anemia, Iron Deficiency Immunologic History: Reports: None Oncologic (Cancer) History: Reports: None Dermatologic History: Reports: None - Infectious Disease History Infectious Disease History: Reports: TB - Past Surgical History GI Surgical History: Reports: None Other Female Surgeries/Procedures: heavy menstrual flow at this time Social & Family History - Family History Family Medical History: Unobtainable - Tobacco Use Smoking Status *Q: Current Every Day Smoker Years of Tobacco use: 28 Packs/Tins Daily: 2 - Caffeine Use Caffeine Use: Reports: Coffee, Soda, Tea - Alcohol Use Date of Last Drink: 08/10/18 - Recreational Drug Use Recreational Drug Use: No - Living Situation & Occupation Living situation: Reports: with Family Occupation: Unemployed ED ROS GENERAL - Review of Systems Review Of Systems: ROS reveals no pertinent complaints other than HPI. ED EXAM, GI/ABD - Physical Exam Exam: See Below Exam Limited By: No Limitations General Appearance: Alert, WD/WN, Mild Distress Eyes: Bilateral: Normal Appearance, EOMI Ears: Normal External Exam, Normal Canal, Hearing Grossly Normal, Normal TMs Nose: Normal Inspection, Normal Mucosa, No Blood Throat/Mouth: Normal Inspection, Normal Lips, Normal Teeth, Normal Gums, Normal Oropharynx, Normal Voice, No Airway Compromise Head: Atraumatic, Normocephalic Neck: Normal Inspection, Supple, Non-Tender, Full Range of Motion Respiratory/Chest: No Respiratory Distress, Lungs Clear, Normal Breath Sounds, No Accessory Muscle Use, Chest Non-Tender Cardiovascular: Normal Peripheral Pulses, Regular Rate, Rhythm, No Edema, No Gallop, No JVD, No Murmur, No Rub GI/Abdominal Exam: Normal Bowel Sounds, No Organomegaly, No Distention, No Abnormal Bruit, No Mass, Pelvis Stable, Tender (Female) Exam: Deferred Rectal (Female) Exam: Deferred Back Exam: Normal Inspection, Full Range of Motion, NT Extremities: Normal Inspection, Normal Range of Motion, Non-Tender, Normal Capillary Refill, No Pedal Edema Neurological: Alert, Oriented, CN II-XII Intact, Normal Cognition, Normal Gait, Normal Reflexes, No Motor/Sensory Deficits Psychiatric: Normal Affect, Normal Mood Skin Exam: Warm, Dry, Intact, Normal Color, No Rash Lymphatic: No Adenopathy Course - Vital Signs Last Recorded V/S: Last Vital Signs Temp 37.6 C 08/10/18 18:38 Pulse 89 08/10/18 18:38 Resp 18 08/10/18 18:38 BP 120/56 L 08/10/18 18:38 Pulse Ox 98 08/10/18 18:38 - Orders/Labs/Meds Orders: Active Orders 24 hr Category Date Time Status ACETAMINOPHEN [CHEM] Stat Lab 08/10/18 19:04 Received AMYLASE [CHEM] Stat Lab 08/10/18 19:04 Received CULTURE BLOOD [BC] Stat Lab 08/10/18 19:04 Received LIPASE [CHEM] Stat Lab 08/10/18 19:04 Received Labs: Laboratory Tests 08/10/18 08/10/18 08/10/18 Range/Units 18:57 18:57 19:04 WBC (5.0-10.0) 10^3/uL RBC (4.2-5.4) 10^6/uL Hgb (12.0-16.0) g/dL Hct (37.0-47.0) % MCV (80-100) fL MCH (27.0-34.0) pg MCHC (33.0-35.0) g/dL Plt Count (150-450) 10^3/uL Neut % (Auto) (42.2-75.2) % Lymph % (Auto) (20.5-50.1) % [place] % (Auto) (2-8) % Eos % (Auto) (1.0-3.0) % Baso % (Auto) (0.0-1.0) % Add Manual Diff Neutrophils % (Manual) (42-75) % Lymphocytes % (Manual) (20-50) % Monocytes % (Manual) (2-8) % Sodium (135-145) mmol/L Potassium (3.6-5.0) mmol/L Chloride (101-111) mmol/L Carbon Dioxide (21.0-31.0) mmol/L Anion Gap BUN (7-18) mg/dL Creatinine (0.6-1.3) mg/dL Est Cr Clr Drug Dosing mL/min Estimated GFR (MDRD) BUN/Creatinine Ratio Glucose (74-105) mg/dL Lactic Acid (0.5-2.2) mmol/L Calcium (8.4-10.2) mg/dl Total Bilirubin (0.2-1.0) mg/dL AST (10-42) IU/L ALT (10-60) IU/L Alkaline Phosphatase (42-121) IU/L Ammonia 37 H (11-35) umol/L Total Protein (6.7-8.2) g/dl Albumin (3.2-5.5) g/dl Globulin Albumin/Globulin Ratio Urine Color Yellow (YELLOW) Urine Appearance Clear (CLEAR) Urine pH 6.0 (5.0-9.0) Ur Specific [place] >= 1.030 (1.005-1.030) Urine Protein 30 H (NEGATIVE) Urine Glucose (UA) Negative (NEGATIVE) Urine Ketones 15 H (NEGATIVE) Urine Occult Blood Trace-intact H (NEGATIVE) Urine Nitrite Negative (NEGATIVE) Urine Bilirubin Negative (NEGATIVE) Urine Urobilinogen 1.0 (0.2-1.0) mg/dL Ur Leukocyte Esterase Negative (NEGATIVE) Urine RBC 0-5 /HPF Urine WBC 0-5 (0-5/HPF) /HPF Ur Epithelial Cells Few /HPF Urine Bacteria Few (0-FEW/HPF) /HPF Urine Mucus Moderate H /LPF Urine Opiates Screen Negative (NEGATIVE) Ur Oxycodone Screen Negative (NEGATIVE) Urine Methadone Screen Negative (NEGATIVE) Ur Barbiturates Screen Negative (NEGATIVE) U Tricyclic Antidepress Negative (NEGATIVE) Ur Phencyclidine Scrn Negative (NEGATIVE) Ur Amphetamine Screen Negative (NEGATIVE) U Methamphetamines Scrn Negative (NEGATIVE) Urine MDMA Screen Negative (NEGATIVE) U Benzodiazepines Scrn Negative (NEGATIVE) Urine Cocaine Screen Negative (NEGATIVE) U Marijuana (THC) Screen Negative (NEGATIVE) Ethyl Alcohol mg/dL 08/10/18 08/10/18 08/10/18 Range/Units 19:04 19:04 19:04 WBC 9.6 (5.0-10.0) 10^3/uL RBC 3.86 L (4.2-5.4) 10^6/uL Hgb 9.4 L (12.0-16.0) g/dL Hct 30.6 L (37.0-47.0) % MCV 79.3 L (80-100) fL MCH 24.4 L (27.0-34.0) pg MCHC 30.7 L (33.0-35.0) g/dL Plt Count 172 D (150-450) 10^3/uL Neut % (Auto) 85.9 H (42.2-75.2) % Lymph % (Auto) 6.6 L (20.5-50.1) % [place] % (Auto) 5.8 (2-8) % Eos % (Auto) 0.9 L (1.0-3.0) % Baso % (Auto) 0.8 (0.0-1.0) % Add Manual Diff Yes Neutrophils % (Manual) 85 H (42-75) % Lymphocytes % (Manual) 9 L (20-50) % Monocytes % (Manual) 6 (2-8) % Sodium 141 (135-145) mmol/L Potassium 3.6 (3.6-5.0) mmol/L Chloride 108 (101-111) mmol/L Carbon Dioxide 22.0 (21.0-31.0) mmol/L Anion Gap 14.6 BUN 8 (7-18) mg/dL Creatinine 0.6 (0.6-1.3) mg/dL Est Cr Clr Drug Dosing 114.34 mL/min Estimated GFR (MDRD) > 60 BUN/Creatinine Ratio 13.33 Glucose 93 (74-105) mg/dL Lactic Acid 2.8 H (0.5-2.2) mmol/L Calcium 8.0 L (8.4-10.2) mg/dl Total Bilirubin 1.0 (0.2-1.0) mg/dL AST 100 H (10-42) IU/L ALT 43 (10-60) IU/L Alkaline Phosphatase 128 H (42-121) IU/L Ammonia (11-35) umol/L Total Protein 8.2 (6.7-8.2) g/dl Albumin 3.4 (3.2-5.5) g/dl Globulin 4.8 Albumin/Globulin Ratio 0.71 Urine Color (YELLOW) Urine Appearance (CLEAR) Urine pH (5.0-9.0) Ur Specific [place] (1.005-1.030) Urine Protein (NEGATIVE) Urine Glucose (UA) (NEGATIVE) Urine Ketones (NEGATIVE) Urine Occult Blood (NEGATIVE) Urine Nitrite (NEGATIVE) Urine Bilirubin (NEGATIVE) Urine Urobilinogen (0.2-1.0) mg/dL Ur Leukocyte Esterase (NEGATIVE) Urine RBC /HPF Urine WBC (0-5/HPF) /HPF Ur Epithelial Cells /HPF Urine Bacteria (0-FEW/HPF) /HPF Urine Mucus /LPF Urine Opiates Screen (NEGATIVE) Ur Oxycodone Screen (NEGATIVE) Urine Methadone Screen (NEGATIVE) Ur Barbiturates Screen (NEGATIVE) U Tricyclic Antidepress (NEGATIVE) Ur Phencyclidine Scrn (NEGATIVE) Ur Amphetamine Screen (NEGATIVE) U Methamphetamines Scrn (NEGATIVE) Urine MDMA Screen (NEGATIVE) U Benzodiazepines Scrn (NEGATIVE) Urine Cocaine Screen (NEGATIVE) U Marijuana (THC) Screen (NEGATIVE) Ethyl Alcohol 218 mg/dL Meds: Medications Discontinued Medications Generic Name Dose Route Start Last Admin Trade Name Freq PRN Reason Stop Dose Admin Multivitamins/Minerals 10 ml/ 1,011.2 mls @ 999 mls/hr 08/10/18 18:54 19:12 Folic Acid 1 mg/ Thiamine HCl IV 08/10/18 19:54 999 mls/hr 100 mg/ Lactated Ringer's ONETIME ONE Administration Ondansetron HCl 4 mg 08/10/18 18:54 08/10/18 19:10 Zofran IV 08/10/18 18:55 4 mg ONETIME ONE Administration Departure - Departure Time of Disposition: 20:05 Disposition: Home, Self-Care 01 Condition: Fair Clinical Impression: Gastroenteritis, Alcohol abuse - Discharge Information *PRESCRIPTION DRUG MONITORING PROGRAM REVIEWED*: Not Applicable *COPY OF PRESCRIPTION DRUG MONITORING REPORT IN PATIENT TIKI: Not Applicable Instructions: Alcohol Use Disorder, Viral Gastroenteritis, Adult, [id number] Forms: ED Department Discharge Care Plan Goals: The patient was advised of the examination and lab results during the visit. The patient was given IV fluids and IV Zofran while in the ED. The patient was encouraged to take her Zofran for nausea. The patient was encouraged to stick to a BRAT diet (bananas, rice, applesauce and toast) with small frequent sips of fluid. If the patient has any additional symptoms or concerns, the patient should either return to the emergency department or follow-up with her primary care facility. - My Orders Last 24 Hours: My Active Orders 08/10/18 19:04 ACETAMINOPHEN [CHEM] Stat AMYLASE [CHEM] Stat CULTURE BLOOD [BC] Stat LIPASE [CHEM] Stat - Assessment/Plan Last 24 Hours: My Active Orders 08/10/18 19:04 ACETAMINOPHEN [CHEM] Stat AMYLASE [CHEM] Stat CULTURE BLOOD [BC] Stat LIPASE [CHEM] Stat
[2018-08-10 19:34] LABS: ANION GAP 14.6; CHLORIDE,CL 108 mmol/L (101-111); SODIUM,NA 141 mmol/L (135-145)
[2018-08-10 20:11] LABS: ACETAMINOPHEN < 10.0 ug/mL
[2018-08-10 20:30] VITALS: BP 109/65
== END 2018-08-10 20:22 | disposition home or self-care (01) ==
LOC: DL.ED 18:31
DX: K52.9 Noninfective gastroenteritis and colitis, unspecified (principal); F10.129 Alcohol abuse with intoxication, unspecified; D50.9 Iron deficiency anemia, unspecified; F17.210 Nicotine dependence, cigarettes, uncomplicated; Z88.8 Allergy status to other drugs, medicaments and biological substances; Z79.899 Other long term (current) drug therapy
CPT/HCPCS: 36415; 80053; 80305; 81001; 82140; 82150; 83605; 83690; 85025; 87040; 87804; 96365; 96375; 99285; G0480; J2405; J3411; J7120; J3490

== ENCOUNTER 2018-09-27 01:30 | Emergency (ER) | payer MEDICAID ==
[2018-09-27] MEDS ORDERED: GI Cocktail Oral Solution 30 ML PO ONE (01:31)
[2018-09-27] MEDS ORDERED: GI Cocktail Oral Solution 30 ML ONE (02:30)
[2018-09-27 08:47] LABS: ANION GAP 10.5; CHLORIDE,CL 104 mmol/L (101-111); SODIUM,NA 132 mmol/L (135-145)
== END 2018-09-27 05:23 | disposition home or self-care (01) ==
LOC: DL.ED 01:30
DX: K70.31 Alcoholic cirrhosis of liver with ascites (principal); D64.9 Anemia, unspecified
CPT/HCPCS: 36415; 36430; 74177; 80053; 81025; 82150; 83690; 85025; 86850; 86900; 86901; 86920; 86922; 96365; 99285; A9270; P9016; Q9967

== ENCOUNTER 2018-10-01 22:23 | Emergency (ER) | payer MEDICAID ==
[2018-10-01 22:30] VITALS: BP 104/59
[2018-10-01] MEDS ORDERED: Sodium Chloride 0.9% 10 ML Syringe FLUSH PRN (22:44)
--- NOTE | 2018-10-01 22:52 | EDM.PDOC ---
ED HPI GENERAL MEDICAL PROBLEM - General Chief Complaint: Abdominal Pain Stated Complaint: UNKNOWN-AMBULANCE Time Seen by Provider: 10/01/18 22:40 Source of Information: Reports: Patient, EMS, EMS Notes Reviewed, RN, RN Notes Reviewed History Limitations: Reports: No Limitations - History of Present Illness INITIAL COMMENTS - FREE TEXT/NARRATIVE: Pt to ER per [facility] with c/o abdominal pain. States discharged from [facility] in [place]. States ulcers were bleeding, infection, gallbladder issues, paracentesis for ascites. She states the pain began about 1100 today. She states she took Tylenol and the pain improved. About 1800 pain returned and was 9/10, sharp stabbing pain, unable to stand or move. She states last BM was Friday evening. LMP end of July, states no chances of . Admits to nausea, denies fever, chills, diarrhea, vomiting. Onset: Today, Sudden Duration: Constant, Getting Worse Location: Reports: Abdomen Quality: Reports: Sharp, Stabbing Severity: Severe Improves with: Reports: None Worsens with: Reports: None Associated Symptoms: Reports: Nausea/Vomiting Treatments OPEN CUT EXAMINER: Reports: Acetaminophen Right Upper Abdomen Pain Score (Numeric/FACES): 9 - Related Data Allergies Allergy/AdvReac Type Severity Reaction Status Date / Time acetaminophen Allergy Hives Verified 10/01/18 22:38 [From Comtrex Cold-Cough] dextromethorphan Allergy Hives Verified 10/01/18 22:38 [From Comtrex Cold-Cough] phenylephrine Allergy Hives Verified 10/01/18 22:38 [From Comtrex Cold-Cough] wool Allergy itchy Uncoded 08/10/18 19:47 Home Meds: Home Meds Ferrous Sulfate [Iron] 325 mg PO BID 05/09/18 [History] Pantoprazole Sodium 40 mg PO DAILY 05/09/18 [History] Ondansetron [Zofran] 4 mg PO Q6H PRN 08/10/18 [History] Past Medical History - Past Health History Medical/Surgical History: Denies Medical/Surgical History HEENT History: Reports: Epistaxis Cardiovascular History: Reports: None Respiratory History: Reports: None Gastrointestinal History: Reports: Cirrhosis, GI Bleed Other Gastrointestinal History: liver cirrhosis, gallbladder polyps Genitourinary History: Reports: None 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 States she is on her monthly and flow has been heavy Neurological History: Reports: None Psychiatric History: Reports: Addiction Endocrine/Metabolic History: Reports: None Hematologic History: Reports: Anemia, Iron Deficiency Immunologic History: Reports: None Oncologic (Cancer) History: Reports: None Dermatologic History: Reports: None - Infectious Disease History Infectious Disease History: Reports: TB - Past Surgical History GI Surgical History: Reports: None Other Female Surgeries/Procedures: heavy menstrual flow at this time Social & Family History - Family History Family Medical History: Unobtainable - Tobacco Use Smoking Status *Q: Current Every Day Smoker Years of Tobacco use: 20 Packs/Tins Daily: 0.2 Second Hand Smoke Exposure: Yes - Caffeine Use Caffeine Use: Reports: Coffee, Soda - Alcohol Use Days Per Week of Alcohol Use: 2 Number of Drinks Per Day: 6 Total Drinks Per Week: 12 - Recreational Drug Use Recreational Drug Use: No - Living Situation & Occupation Living situation: Reports: with Family Occupation: Unemployed ED ROS GENERAL - Review of Systems Review Of Systems: ROS reveals no pertinent complaints other than HPI. ED EXAM, GI/ABD - Physical Exam Exam: See Below Exam Limited By: No Limitations General Appearance: Alert, WD/WN, Moderate Distress Eyes: Bilateral: Normal Appearance (Scleral icterus), EOMI Ears: Normal External Exam, Hearing Grossly Normal Nose: Normal Inspection Throat/Mouth: Normal Inspection, Normal Voice, No Airway Compromise Head: Atraumatic, Normocephalic Neck: Normal Inspection, Supple, Non-Tender, Full Range of Motion Respiratory/Chest: No Respiratory Distress, Lungs Clear, Normal Breath Sounds, No Accessory Muscle Use, Chest Non-Tender Cardiovascular: Normal Peripheral Pulses, Regular Rate, Rhythm, No Edema, No Gallop, No JVD, No Murmur, No Rub GI/Abdominal Exam: Normal Bowel Sounds, Soft, Tender (RUQ) (Female) Exam: Deferred Rectal (Female) Exam: Deferred Back Exam: Normal Inspection, Full Range of Motion, NT Extremities: Normal Inspection, Normal Range of Motion, Non-Tender, Normal Capillary Refill, No Pedal Edema Neurological: Alert, Oriented, CN II-XII Intact, Normal Cognition, Normal Gait, Normal Reflexes, No Motor/Sensory Deficits Psychiatric: Normal Mood, Flat Affect Skin Exam: Warm, Dry, Intact, No Rash, Jaundice Lymphatic: No Adenopathy Course - Vital Signs Last Recorded V/S: Last Vital Signs Temp 99.1 F 10/01/18 22:23 Pulse 92 10/01/18 22:23 Resp 21 H 10/01/18 22:23 BP 104/59 L 10/01/18 22:23 Pulse Ox 100 10/01/18 22:23 - Orders/Labs/Meds Orders: Active Orders 24 hr Category Date Time Status Peripheral IV Care [RC] . DIRECTED Care 10/01/18 22:45 Active Sodium Chloride 0.9% [Normal Saline] 1,000 ml Med 10/01/18 23:11 Active IV .BOLUS Sodium Chloride 0.9% [Saline Flush] Med 10/01/18 22:44 Active 10 ml FLUSH ASDIRECTED PRN Peripheral IV Insertion Adult [OM.PC] Stat Oth 10/01/18 22:44 Ordered Medication Orders Sodium Chloride (Normal Saline) 1,000 mls @ 150 mls/hr IV .BOLUS ONE Stop: 10/02/18 05:50 Last Admin: 10/01/18 23:49 Dose: 150 mls/hr Sodium Chloride (Saline Flush) 10 ml FLUSH ASDIRECTED PRN PRN Reason: Keep Vein Open Labs: Laboratory Tests 10/01/18 10/01/18 10/01/18 Range/Units 22:30 22:30 22:30 WBC 14.0 H (5.0-10.0) 10^3/uL RBC 4.37 (4.2-5.4) 10^6/uL Hgb 11.0 L D (12.0-16.0) g/dL Hct 34.0 L (37.0-47.0) % MCV 77.8 L D (80-100) fL MCH 25.2 L (27.0-34.0) pg MCHC 32.4 L (33.0-35.0) g/dL Plt Count 216 D (150-450) 10^3/uL Neut % (Auto) 82.9 H (42.2-75.2) % Lymph % (Auto) 6.2 L (20.5-50.1) % [place] % (Auto) 9.3 H (2-8) % Eos % (Auto) 1.3 (1.0-3.0) % Baso % (Auto) 0.3 (0.0-1.0) % PT 16.1 H D (9.0-12.0) SEC INR 1.6 H (0.9-1.2) Sodium 128 L (135-145) mmol/L Potassium 3.4 L (3.6-5.0) mmol/L Chloride 97 L (101-111) mmol/L Carbon Dioxide 20.0 L (21.0-31.0) mmol/L Anion Gap 14.4 BUN 20 H (7-18) mg/dL Creatinine 1.3 (0.6-1.3) mg/dL Est Cr Clr Drug Dosing 54.82 mL/min Estimated GFR (MDRD) 45 BUN/Creatinine Ratio 15.38 Glucose 95 (74-105) mg/dL Calcium 7.7 L (8.4-10.2) mg/dl Total Bilirubin 5.2 H (0.2-1.0) mg/dL AST 61 H (10-42) IU/L ALT 21 (10-60) IU/L Alkaline Phosphatase 133 H (42-121) IU/L Total Protein 8.7 H (6.7-8.2) g/dl Albumin 2.2 L (3.2-5.5) g/dl Globulin 6.5 Albumin/Globulin Ratio 0.34 Amylase 21 L (28-100) U/L Lipase 24 (22-51) U/L Urine Color (YELLOW) Urine Appearance (CLEAR) Urine pH (5.0-9.0) Ur Specific Hodges (1.005-1.030) Urine Protein (NEGATIVE) Urine Glucose (UA) (NEGATIVE) Urine Ketones (NEGATIVE) Urine Occult Blood (NEGATIVE) Urine Nitrite (NEGATIVE) Urine Bilirubin (NEGATIVE) Urine Urobilinogen (0.2-1.0) mg/dL Ur Leukocyte Esterase (NEGATIVE) Urine RBC /HPF Urine WBC (0-5/HPF) /HPF Ur Epithelial Cells /HPF Urine Bacteria (0-FEW/HPF) /HPF Hyaline Casts /LPF Fine Granular Casts (0/LPF) /LPF Urine HCG, Qual Urine Opiates Screen (NEGATIVE) Ur Oxycodone Screen (NEGATIVE) Urine Methadone Screen (NEGATIVE) Ur Barbiturates Screen (NEGATIVE) U Tricyclic Antidepress (NEGATIVE) Ur Phencyclidine Scrn (NEGATIVE) Ur Amphetamine Screen (NEGATIVE) U Methamphetamines Scrn (NEGATIVE) Urine MDMA Screen (NEGATIVE) U Benzodiazepines Scrn (NEGATIVE) Urine Cocaine Screen (NEGATIVE) U Marijuana (THC) Screen (NEGATIVE) Ethyl Alcohol < 5 mg/dL 10/02/18 10/02/18 10/02/18 Range/Units 00:18 00:18 00:18 WBC (5.0-10.0) 10^3/uL RBC (4.2-5.4) 10^6/uL Hgb (12.0-16.0) g/dL Hct (37.0-47.0) % MCV (80-100) fL MCH (27.0-34.0) pg MCHC (33.0-35.0) g/dL Plt Count (150-450) 10^3/uL Neut % (Auto) (42.2-75.2) % Lymph % (Auto) (20.5-50.1) % [place] % (Auto) (2-8) % Eos % (Auto) (1.0-3.0) % Baso % (Auto) (0.0-1.0) % PT (9.0-12.0) SEC INR (0.9-1.2) Sodium (135-145) mmol/L Potassium (3.6-5.0) mmol/L Chloride (101-111) mmol/L Carbon Dioxide (21.0-31.0) mmol/L Anion Gap BUN (7-18) mg/dL Creatinine (0.6-1.3) mg/dL Est Cr Clr Drug Dosing mL/min Estimated GFR (MDRD) BUN/Creatinine Ratio Glucose (74-105) mg/dL Calcium (8.4-10.2) mg/dl Total Bilirubin (0.2-1.0) mg/dL AST (10-42) IU/L ALT (10-60) IU/L Alkaline Phosphatase (42-121) IU/L Total Protein (6.7-8.2) g/dl Albumin (3.2-5.5) g/dl Globulin Albumin/Globulin Ratio Amylase (28-100) U/L Lipase (22-51) U/L Urine Color Rosa (YELLOW) Urine Appearance Slightly cloudy (CLEAR) Urine pH 6.0 (5.0-9.0) Ur Specific Hodges 1.015 (1.005-1.030) Urine Protein Trace H (NEGATIVE) Urine Glucose (UA) Negative (NEGATIVE) Urine Ketones Trace H (NEGATIVE) Urine Occult Blood Negative (NEGATIVE) Urine Nitrite Negative (NEGATIVE) Urine Bilirubin Moderate H (NEGATIVE) Urine Urobilinogen 2.0 H (0.2-1.0) mg/dL Ur Leukocyte Esterase Negative (NEGATIVE) Urine RBC 0-5 /HPF Urine WBC 0-5 (0-5/HPF) /HPF Ur Epithelial Cells Many H /HPF Urine Bacteria Many H (0-FEW/HPF) /HPF Hyaline Casts Many H /LPF Fine Granular Casts Few H (0/LPF) /LPF Urine HCG, Qual Negative Urine Opiates Screen Negative (NEGATIVE) Ur Oxycodone Screen Positive H (NEGATIVE) Urine Methadone Screen Negative (NEGATIVE) Ur Barbiturates Screen Negative (NEGATIVE) U Tricyclic Antidepress Negative (NEGATIVE) Ur Phencyclidine Scrn Negative (NEGATIVE) Ur Amphetamine Screen Negative (NEGATIVE) U Methamphetamines Scrn Negative (NEGATIVE) Urine MDMA Screen Negative (NEGATIVE) U Benzodiazepines Scrn Negative (NEGATIVE) Urine Cocaine Screen Negative (NEGATIVE) U Marijuana (THC) Screen Negative (NEGATIVE) Ethyl Alcohol mg/dL Meds: Medications Generic Name Dose Route Start Last Admin Trade Name Freq PRN Reason Stop Dose Admin Sodium Chloride 1,000 mls @ 150 mls/hr 10/01/18 23:11 10/01/18 23:49 Normal Saline IV 10/02/18 05:50 150 mls/hr .BOLUS ONE Administration Sodium Chloride 10 ml 10/01/18 22:44 Saline Flush FLUSH ASDIRECTED PRN Keep Vein Open Discontinued Medications Generic Name Dose Route Start Last Admin Trade Name Freq PRN Reason Stop Dose Admin Hydromorphone HCl 1 mg 10/01/18 23:52 10/01/18 23:56 Dilaudid IVPUSH 10/01/18 23:53 1 mg ONETIME ONE Administration Iopamidol 75 ml 10/01/18 23:50 10/01/18 23:57 Isovue-300 (61%) IVPUSH 10/01/18 23:51 75 ml ONETIME ONE Administration Lactulose 20 gm 10/02/18 00:52 10/02/18 00:57 Cephulac PO 10/02/18 00:53 20 gm ONETIME ONE Administration - Radiology Interpretation Free Text/Narrative:: Abdomen/Pelvis xray: FINDINGS: Gastrointestinal tract: Moderate amount of stool in the colon. There are some small bowel loops with fold thickening. No dilated loops. Intraperitoneal space: Unremarkable. No free air. Organs: visulized borders are unremarkable. Bones/joints: Unremarkable for age. IMPRESSION: Possibly an enteritis. Thank you for allowing us to participate in the care of your patient. Dictated and Authenticated by: Hany Lindsay MD 10/02/2018 12:25 AM Central Time ([place] & [place]) Abdomen/Pelvis CT: FINDINGS: Lungs: Minimal dependent atelectasis. ABDOMEN: Liver: Cirrhotic appearance of the liver. Gallbladder and bile ducts: No acute or concerning findings. Pancreas: Unremarkable. No ductal dilation. Spleen: Spleen is mildly enlarged. Adrenals: Unremarkalbe. No suspicious mass. Kidneys and ureters: Unremarkable. No hydro. No suspicious lesions. Stomach and bowel: Unremarkable. No obstruction or inflammatory changes. Appendix: No evidence of appendicitis. PELVIS: Bladder: Unremarkable as visualized. Reproductive: Unremarkable as visualized. ABDOMEN and PELVIS: Intraperitoneal space: Large amount of ascites. Bones/joints: No acute fracture. No dislocation. Soft tissues: Unremarkable. Vasculature: Unremarkable. No acute findings Lymph nodes: Unremarkable. IMPRESSION: Large amount of ascites. Cirrhotic liver. Mild splenomegaly. Thank you for allowing us to participate in the care of your patient. Dictated and Authenticated by: Hany Lindsay MD 10/02/2018 12:26 AM Central Time ([place] & [place]) See rad report - Re-Assessments/Exams Free Text/Narrative Re-Assessment/Exam: 10/02/18 00:46 Discussed lab findings and diagnostics with patient. She states she feels comfortable going home with a bowel regimen to clear the bowels, and will return to the ER with any further problems. She states she has an appointment on Friday with Dr. Ledbetter at the clinic. Patient states her pain is improved at this time. Patient denies SOB from ascites. Departure - Departure Time of Disposition: 00:52 Disposition: Home, Self-Care 01 Condition: Fair Clinical Impression: Enteritis Liver cirrhosis Qualifiers: Hepatic cirrhosis type: alcoholic cirrhosis Ascites presence: with ascites Qualified Code(s): K70.31 - Alcoholic cirrhosis of liver with ascites Constipation Qualifiers: Constipation type: drug induced constipation Qualified Code(s): K59.03 - Drug induced constipation Ascites Qualifiers: Ascites type: due to alcoholic cirrhosis Qualified Code(s): K70.31 - Alcoholic cirrhosis of liver with ascites Abdominal pain Qualifiers: Abdominal location: right upper quadrant Qualified Code(s): R10.11 - Right upper quadrant pain - Discharge Information *PRESCRIPTION DRUG MONITORING PROGRAM REVIEWED*: No *COPY OF PRESCRIPTION DRUG MONITORING REPORT IN PATIENT TIKI: No Instructions: High-Fiber Diet, Constipation, Adult, [id number], Abdominal Pain, Adult, [id number], Ascites Forms: ED Department Discharge Additional Instructions: Drink plenty of fluids High fiber diet May use Miralax or generic like over the counter as directed for constipation May use stool softeners as directed for constipation Follow up with your primary care facility next week Return to the ER with any further problems. - My Orders Last 24 Hours: My Active Orders 10/01/18 22:44 Sodium Chloride 0.9% [Saline Flush] 10 ml FLUSH ASDIRECTED PRN Peripheral IV Insertion Adult [OM.PC] Stat 10/01/18 22:45 Peripheral IV Care [RC] . DIRECTED 10/01/18 23:11 Sodium Chloride 0.9% [Normal Saline] 1,000 ml IV .BOLUS - Assessment/Plan Last 24 Hours: My Active Orders 10/01/18 22:44 Sodium Chloride 0.9% [Saline Flush] 10 ml FLUSH ASDIRECTED PRN Peripheral IV Insertion Adult [OM.PC] Stat 10/01/18 22:45 Peripheral IV Care [RC] . DIRECTED 10/01/18 23:11 Sodium Chloride 0.9% [Normal Saline] 1,000 ml IV .BOLUS
[2018-10-01 23:02] LABS: ANION GAP 14.4; CHLORIDE,CL 97 mmol/L (101-111); SODIUM,NA 128 mmol/L (135-145)
[2018-10-01] MEDS ORDERED: Sodium Chloride 0.9% 1,000 ML IV ONE (23:11)
[2018-10-01] MEDS ORDERED: Iopamidol 612 MG/ML 75 ML Bottle IVPUSH ONE (23:50)
[2018-10-01] MEDS ORDERED: HYDROmorphone 1 MG/ML Syringe IVPUSH ONE (23:52)
[2018-10-02] MEDS ORDERED: Lactulose Soln 10 GM/15 ML 30 ML UD Cup PO ONE (00:52)
== END 2018-10-02 01:02 | disposition home or self-care (01) ==
LOC: DL.ED 22:23
DX: K70.31 Alcoholic cirrhosis of liver with ascites (principal); K52.9 Noninfective gastroenteritis and colitis, unspecified; K59.03 Drug induced constipation; F10.20 Alcohol dependence, uncomplicated; F17.210 Nicotine dependence, cigarettes, uncomplicated; Z88.8 Allergy status to other drugs, medicaments and biological substances
CPT/HCPCS: 36415; 74019; 74177; 80053; 80305; 81001; 81025; 82150; 83690; 85025; 85610; 96361; 96374; 99284; A9270; G0480; J1170; J7030; Q9967

== ENCOUNTER 2018-10-02 20:39 | Emergency (ER) | payer MEDICAID ==
[2018-10-03 00:53] LABS: CHLORIDE,CL 99 mmol/L (101-111); SODIUM,NA 128 mmol/L (135-145)
[2018-10-03] MEDS ORDERED: fentaNYL 100 MCG/2 ML SDV IVPUSH ONE (03:16)
[2018-10-03 04:10] VITALS: BP 102/88
--- NOTE | 2018-10-11 05:52 | EDM.PDOC ---
ED HPI GENERAL MEDICAL PROBLEM - General Chief Complaint: Abdominal Pain Stated Complaint: ABDOMINAL PAIN Time Seen by Provider: 10/02/18 23:30 Source of Information: Reports: Patient, RN History Limitations: Reports: No Limitations - History of Present Illness INITIAL COMMENTS - FREE TEXT/NARRATIVE: ED with c/o abdominal pain and bloating. Hx liver failure and ascities. Abdomen drained on Friday in [place] and came back. No known fever, no difficulty breathing , Pain worse with movment. Few loose stools today. Abdomen Pain Score (Numeric/FACES): 7 - Related Data Allergies Allergy/AdvReac Type Severity Reaction Status Date / Time acetaminophen Allergy Hives Verified 10/02/18 22:41 [From Comtrex Cold-Cough] dextromethorphan Allergy Hives Verified 10/02/18 22:41 [From Comtrex Cold-Cough] phenylephrine Allergy Hives Verified 10/02/18 22:41 [From Comtrex Cold-Cough] wool Allergy itchy Uncoded 08/10/18 19:47 Home Meds: Home Meds Ferrous Sulfate [Iron] 325 mg PO BID 05/09/18 [History] Pantoprazole Sodium 40 mg PO DAILY 05/09/18 [History] Ondansetron [Zofran] 4 mg PO Q6H PRN 08/10/18 [History] Amoxicillin/Clavulanate K [Augmentin 500-125 MG] 1 tab PO TID 10/02/18 [History] Furosemide 1 tab PO DAILY 10/02/18 [History] Spironolactone [Aldactone] 1 tab PO DAILY 10/02/18 [History] Past Medical History - Past Health History Medical/Surgical History: Denies Medical/Surgical History HEENT History: Reports: Epistaxis Cardiovascular History: Reports: None Respiratory History: Reports: None Gastrointestinal History: Reports: Cholelithiasis, Cirrhosis, GI Bleed Other Gastrointestinal History: liver cirrhosis, gallbladder polyps Genitourinary History: Reports: None 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 is on her monthly and flow has been heavy Neurological History: Reports: None Psychiatric History: Reports: Addiction Endocrine/Metabolic History: Reports: None Hematologic History: Reports: Anemia, Iron Deficiency Immunologic History: Reports: None Oncologic (Cancer) History: Reports: None Dermatologic History: Reports: None - Infectious Disease History Infectious Disease History: Reports: Chicken Pox, TB - Past Surgical History GI Surgical History: Reports: None Other Female Surgeries/Procedures: heavy menstrual flow at this time Social & Family History - Family History Family Medical History: Unobtainable Cardiac: Reports: MS Endocrine/Metabolic: Reports: Diabetes, type II - Tobacco Use Smoking Status *Q: Former Smoker Used Tobacco, but Quit: Yes Month/Year Tobacco Last Used: august 2018 Second Hand Smoke Exposure: No - Caffeine Use Caffeine Use: Reports: Coffee, Soda, Tea - Recreational Drug Use Recreational Drug Use: No - Living Situation & Occupation Living situation: Reports: with Family Occupation: Unemployed ED ROS GENERAL - Review of Systems Review Of Systems: ROS reveals no pertinent complaints other than HPI. ED EXAM, GI/ABD - Physical Exam Exam: See Below Exam Limited By: No Limitations General Appearance: Alert, Mild Distress Eyes: Bilateral: EOMI (jaundice) Ears: Normal External Exam Nose: Normal Inspection Throat/Mouth: Normal Inspection Head: Atraumatic, Normocephalic Neck: Normal Inspection Respiratory/Chest: No Respiratory Distress, Lungs Clear, Normal Breath Sounds Cardiovascular: Normal Peripheral Pulses, Regular Rate, Rhythm GI/Abdominal Exam: Distended, Tender (generalized greater RUQ), Hepatomegaly. No: Guarding, Rigid, Rebound Extremities: Normal Range of Motion Neurological: Alert, Oriented, Normal Cognition Psychiatric: Normal Affect Skin Exam: Warm, Dry, Jaundice Course - Vital Signs Last Recorded V/S: Last Vital Signs Temp 98.4 F 10/03/18 03:35 Pulse 78 10/03/18 03:35 Resp 18 10/03/18 03:35 BP 102/88 10/03/18 03:35 Pulse Ox 100 10/03/18 03:35 - Orders/Labs/Meds Labs: Laboratory Tests 10/03/18 10/03/18 10/03/18 Range/Units 00:05 00:05 00:05 WBC 12.5 H (5.0-10.0) 10^3/uL RBC 3.79 L (4.2-5.4) 10^6/uL Hgb 9.6 L (12.0-16.0) g/dL Hct 29.9 L (37.0-47.0) % MCV 78.9 L (80-100) fL MCH 25.3 L (27.0-34.0) pg MCHC 32.1 L (33.0-35.0) g/dL Plt Count 183 (150-450) 10^3/uL Neut % (Auto) 78.8 H (42.2-75.2) % Lymph % (Auto) 7.4 L (20.5-50.1) % [place] % (Auto) 12.2 H (2-8) % Eos % (Auto) 1.1 (1.0-3.0) % Baso % (Auto) 0.5 (0.0-1.0) % Sodium 128 L (135-145) mmol/L Potassium 4.0 (3.6-5.0) mmol/L Chloride 99 L (101-111) mmol/L Carbon Dioxide 20.0 L (21.0-31.0) mmol/L Anion Gap 13.0 BUN 21 H (7-18) mg/dL Creatinine 1.3 (0.6-1.3) mg/dL Est Cr Clr Drug Dosing 54.82 mL/min Estimated GFR (MDRD) 45 BUN/Creatinine Ratio 16.15 Glucose 79 (74-105) mg/dL Calcium 7.5 L (8.4-10.2) mg/dl Magnesium 1.7 L (1.8-2.5) mg/dL Total Bilirubin 5.4 H (0.2-1.0) mg/dL AST 52 H (10-42) IU/L ALT 19 (10-60) IU/L Alkaline Phosphatase 110 (42-121) IU/L Ammonia 38 H (11-35) umol/L Total Protein 7.9 (6.7-8.2) g/dl Albumin 1.9 L (3.2-5.5) g/dl Globulin 6.0 Albumin/Globulin Ratio 0.32 Amylase 18 L (28-100) U/L Lipase 24 (22-51) U/L Ethyl Alcohol < 5 mg/dL Meds: Medications Discontinued Medications Generic Name Dose Route Start Last Admin Trade Name Freq PRN Reason Stop Dose Admin Fentanyl 50 mcg 10/03/18 03:16 10/03/18 03:31 Sublimaze IVPUSH 10/03/18 03:17 50 mcg ONETIME ONE Administration - Re-Assessments/Exams Free Text/Narrative Re-Assessment/Exam: 10/11/18 05:49 [place] [employer], further evaluation. Hospitalist accepting. Departure - Departure Time of Disposition: 04:00 Disposition: DC/Tfer to Acute Hospital 02 Condition: Undetermined Clinical Impression: Hypomagnesemia, Jaundice, Hypokalemia Cirrhosis Qualifiers: Hepatic cirrhosis type: alcoholic cirrhosis Ascites presence: with ascites Qualified Code(s): K70.31 - Alcoholic cirrhosis of liver with ascites Ascites Qualifiers: Ascites type: due to alcoholic cirrhosis Qualified Code(s): K70.31 - Alcoholic cirrhosis of liver with ascites - Discharge Information *PRESCRIPTION DRUG MONITORING PROGRAM REVIEWED*: No *COPY OF PRESCRIPTION DRUG MONITORING REPORT IN PATIENT TIKI: No Referrals: PCP,Unobtain [Primary Care Provider] -
== END 2018-10-03 03:50 ==
LOC: DL.ED 20:39
DX: K70.31 Alcoholic cirrhosis of liver with ascites (principal); E83.42 Hypomagnesemia; E87.6 Hypokalemia; Z88.8 Allergy status to other drugs, medicaments and biological substances; Z79.899 Other long term (current) drug therapy; Z87.891 Personal history of nicotine dependence
CPT/HCPCS: 36415; 80053; 82140; 82150; 83690; 83735; 85025; 96374; 99285; G0480; J3010

== ENCOUNTER 2018-10-13 05:53 | Emergency (ER) | payer MEDICAID ==
--- NOTE | 2018-10-13 06:06 | EDM.PDOC ---
<Denisse Phelps - Last Filed: 10/13/18 06:53> ED HPI GENERAL MEDICAL PROBLEM - General Chief Complaint: Abdominal Pain Stated Complaint: ABD PAIN [id number] Time Seen by Provider: 10/13/18 07:05 Source of Information: Reports: Patient Abdominal Pain Score (Numeric/FACES): 10 - Related Data Allergies Allergy/AdvReac Type Severity Reaction Status Date / Time acetaminophen Allergy Hives Verified 10/13/18 06:06 [From Comtrex Cold-Cough] dextromethorphan Allergy Hives Verified 10/13/18 06:06 [From Comtrex Cold-Cough] phenylephrine Allergy Hives Verified 10/13/18 06:06 [From Comtrex Cold-Cough] wool Allergy itchy Uncoded 10/13/18 06:06 Home Meds: Home Meds Ferrous Sulfate [Iron] 325 mg PO BID 05/09/18 [History] Pantoprazole Sodium 40 mg PO DAILY 05/09/18 [History] Furosemide 40 mg PO DAILY 10/02/18 [History] Spironolactone [Aldactone] 100 mg PO DAILY 10/02/18 [History] Folic Acid 1 mg PO DAILY 10/12/18 [History] Midodrine 5 mg PO TIDAC 10/12/18 [History] Multivits,Stress Formula/Zinc [Stress B with Zinc Tablet] 1 tab PO DAILY [History] Past Medical History - Past Health History Medical/Surgical History: Denies Medical/Surgical History HEENT History: Reports: Epistaxis Cardiovascular History: Reports: None Respiratory History: Reports: None Gastrointestinal History: Reports: Cholelithiasis, Cirrhosis, GI Bleed Other Gastrointestinal History: liver cirrhosis, gallbladder polyps Genitourinary History: Reports: None 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 States she is on her monthly and flow has been heavy Musculoskeletal History: Reports: None Neurological History: Reports: None Psychiatric History: Reports: Addiction Endocrine/Metabolic History: Reports: None Hematologic History: Reports: Anemia, Iron Deficiency Immunologic History: Reports: None Oncologic (Cancer) History: Reports: None Dermatologic History: Reports: None - Infectious Disease History Infectious Disease History: Reports: None - Past Surgical History GI Surgical History: Reports: None Other Female Surgeries/Procedures: heavy menstrual flow at this time Social & Family History - Family History Family Medical History: Noncontributory Cardiac: Reports: [place] Endocrine/Metabolic: Reports: Diabetes, type II - Tobacco Use Smoking Status *Q: Never Smoker - Caffeine Use Caffeine Use: Reports: None - Recreational Drug Use Recreational Drug Use: No - Living Situation & Occupation Living situation: Reports: with Family Occupation: Unemployed Course - Vital Signs Last Recorded V/S: Last Vital Signs Temp 36.3 C 10/13/18 06:00 Pulse 62 10/13/18 07:26 Resp 16 10/13/18 07:26 BP 103/50 L 10/13/18 07:26 Pulse Ox 99 10/13/18 07:26 - Orders/Labs/Meds Orders: Active Orders 24 hr Category Date Time Status CULTURE BLOOD [BC] Stat Lab 10/13/18 06:24 Received Labs: Laboratory Tests 10/13/18 10/13/18 10/13/18 Range/Units 06:08 06:08 06:08 WBC 11.0 H (5.0-10.0) 10^3/uL RBC 3.41 L (4.2-5.4) 10^6/uL Hgb 9.2 L (12.0-16.0) g/dL Hct 28.6 L (37.0-47.0) % MCV 83.9 D (80-100) fL MCH 27.0 (27.0-34.0) pg MCHC 32.2 L (33.0-35.0) g/dL Plt Count 232 (150-450) 10^3/uL Neut % (Auto) 82.7 H (42.2-75.2) % Lymph % (Auto) 7.5 L (20.5-50.1) % [place] % (Auto) 7.0 (2-8) % Eos % (Auto) 2.2 (1.0-3.0) % Baso % (Auto) 0.6 (0.0-1.0) % PT 17.1 H (9.0-12.0) SEC INR 1.7 H (0.9-1.2) Sodium 130 L (135-145) mmol/L Potassium 4.2 (3.6-5.0) mmol/L Chloride 101 (101-111) mmol/L Carbon Dioxide 21.0 (21.0-31.0) mmol/L Anion Gap 12.2 BUN 19 H (7-18) mg/dL Creatinine 1.1 (0.6-1.3) mg/dL Est Cr Clr Drug Dosing 63.35 mL/min Estimated GFR (MDRD) 54 BUN/Creatinine Ratio 17.27 Glucose 90 (74-105) mg/dL Lactic Acid (0.5-2.2) mmol/L Calcium 8.4 (8.4-10.2) mg/dl Total Bilirubin 11.5 H (0.2-1.0) mg/dL AST 143 H (10-42) IU/L ALT 72 H (10-60) IU/L Alkaline Phosphatase 89 (42-121) IU/L Ammonia (11-35) umol/L Total Protein 9.4 H (6.7-8.2) g/dl Albumin 2.3 L (3.2-5.5) g/dl Globulin 7.1 Albumin/Globulin Ratio 0.32 Amylase 30 (28-100) U/L Lipase 47 (22-51) U/L Ethyl Alcohol < 5 mg/dL 10/13/18 10/13/18 Range/Units 06:08 06:24 WBC (5.0-10.0) 10^3/uL RBC (4.2-5.4) 10^6/uL Hgb (12.0-16.0) g/dL Hct (37.0-47.0) % MCV (80-100) fL MCH (27.0-34.0) pg MCHC (33.0-35.0) g/dL Plt Count (150-450) 10^3/uL Neut % (Auto) (42.2-75.2) % Lymph % (Auto) (20.5-50.1) % [place] % (Auto) (2-8) % Eos % (Auto) (1.0-3.0) % Baso % (Auto) (0.0-1.0) % PT (9.0-12.0) SEC INR (0.9-1.2) Sodium (135-145) mmol/L Potassium (3.6-5.0) mmol/L Chloride (101-111) mmol/L Carbon Dioxide (21.0-31.0) mmol/L Anion Gap BUN (7-18) mg/dL Creatinine (0.6-1.3) mg/dL Est Cr Clr Drug Dosing mL/min Estimated GFR (MDRD) BUN/Creatinine Ratio Glucose (74-105) mg/dL Lactic Acid 1.3 (0.5-2.2) mmol/L Calcium (8.4-10.2) mg/dl Total Bilirubin (0.2-1.0) mg/dL AST (10-42) IU/L ALT (10-60) IU/L Alkaline Phosphatase (42-121) IU/L Ammonia 50 H (11-35) umol/L Total Protein (6.7-8.2) g/dl Albumin (3.2-5.5) g/dl Globulin Albumin/Globulin Ratio Amylase (28-100) U/L Lipase (22-51) U/L Ethyl Alcohol mg/dL Meds: Medications Discontinued Medications Generic Name Dose Route Start Last Admin Trade Name Freq PRN Reason Stop Dose Admin Hydromorphone HCl 0.5 mg 10/13/18 07:23 10/13/18 07:27 Dilaudid IVPUSH 10/13/18 07:24 0.5 mg ONETIME ONE Administration Departure - Departure Disposition: DC/Tfer to [facility] 02 Clinical Impression: Jaundice, Hyponatremia Ascites Qualifiers: Ascites type: due to alcoholic cirrhosis Qualified Code(s): K70.31 - Alcoholic cirrhosis of liver with ascites Abdominal pain Qualifiers: Abdominal location: right upper quadrant Qualified Code(s): R10.11 - Right upper quadrant pain - Discharge Information Forms: Interfacility Transfer EMTALA Care Plan Goals: Discussed the patient's history, examination, vitals and lab results with Dr. Garza (Hospitalist with [facility] in [place]). Dr. Garza accepted the patient for continued evaluation and further management. The patient will be transported by [facility]. <Danny Flanagan - Last Filed: 10/13/18 07:48> ED HPI GENERAL MEDICAL PROBLEM - General Source of Information: Reports: Patient History Limitations: Reports: No Limitations - History of Present Illness INITIAL COMMENTS - FREE TEXT/NARRATIVE: This 43 yo female patient reports to the ED with increased abdominal pain. The patient has a history of ascites (last tapped last week) and jaundice. Onset: Today Duration: Constant, Getting Worse Location: Reports: Abdomen Quality: Reports: Ache, Dull Severity: Moderate Improves with: Reports: None Worsens with: Reports: None Context: Reports: Other Associated Symptoms: Reports: No Other Symptoms ED ROS GENERAL - Review of Systems Review Of Systems: ROS reveals no pertinent complaints other than HPI. ED EXAM, GI/ABD - Physical Exam Exam: See Below Exam Limited By: No Limitations General Appearance: Alert, WD/WN, Moderate Distress Eyes: Bilateral: EOMI (Jaundice) Ears: Normal External Exam, Normal Canal, Hearing Grossly Normal, Normal TMs Nose: Normal Inspection, Normal Mucosa, No Blood Throat/Mouth: Normal Inspection, Normal Lips, Normal Teeth, Normal Gums, Normal Oropharynx, Normal Voice, No Airway Compromise Head: Atraumatic, Normocephalic Neck: Normal Inspection, Supple, Non-Tender, Full Range of Motion Respiratory/Chest: No Respiratory Distress, Lungs Clear, Normal Breath Sounds, No Accessory Muscle Use, Chest Non-Tender Cardiovascular: Normal Peripheral Pulses, Regular Rate, Rhythm, No Edema, No Gallop, No JVD, No Murmur, No Rub GI/Abdominal Exam: Normal Bowel Sounds, Guarding, Tender, Other (fluid wave) (Female) Exam: Deferred Rectal (Female) Exam: Deferred Back Exam: Normal Inspection, Full Range of Motion, NT Extremities: Normal Inspection, Normal Range of Motion, Non-Tender, Normal Capillary Refill, No Pedal Edema Neurological: Alert, Oriented, CN II-XII Intact, Normal Cognition, Normal Gait, Normal Reflexes, No Motor/Sensory Deficits Psychiatric: Normal Affect, Normal Mood Skin Exam: Jaundice Lymphatic: No Adenopathy Departure - Departure Time of Disposition: 07:45 Condition: Fair - Discharge Information *PRESCRIPTION DRUG MONITORING PROGRAM REVIEWED*: Not Applicable *COPY OF PRESCRIPTION DRUG MONITORING REPORT IN PATIENT TIKI: Not Applicable
[2018-10-13 06:35] LABS: ANION GAP 12.2; CHLORIDE,CL 101 mmol/L (101-111); SODIUM,NA 130 mmol/L (135-145)
[2018-10-13] MEDS ORDERED: HYDROmorphone 1 MG/ML Syringe IVPUSH ONE (07:23)
[2018-10-13 07:48] VITALS: BP 98/52
== END 2018-10-13 08:15 ==
LOC: DL.ED 05:53
DX: K70.31 Alcoholic cirrhosis of liver with ascites (principal); E87.1 Hypo-osmolality and hyponatremia; Z79.4 Long term (current) use of insulin; Z88.8 Allergy status to other drugs, medicaments and biological substances; Z79.899 Other long term (current) drug therapy
CPT/HCPCS: 36415; 80053; 82140; 82150; 83605; 83690; 85025; 85610; 87040; 96374; 99284; G0480; J1170

== ENCOUNTER 2018-10-25 00:07 | Emergency (ER) | payer MEDICAID ==
--- NOTE | 2018-10-25 01:20 | EDM.PDOC ---
ED HPI GENERAL MEDICAL PROBLEM - General Chief Complaint: Abdominal Pain Stated Complaint: STOMACH PAIN [id number] Time Seen by Provider: 10/25/18 01:19 Source of Information: Reports: Patient History Limitations: Reports: No Limitations - History of Present Illness INITIAL COMMENTS - FREE TEXT/NARRATIVE: c/o abd pain that never went away since being in [facility]. records show pt was seen here week ago for same and sent to [facility]. - Related Data Allergies Allergy/AdvReac Type Severity Reaction Status Date / Time acetaminophen Allergy Hives Verified 10/13/18 06:06 [From Comtrex Cold-Cough] dextromethorphan Allergy Hives Verified 10/13/18 06:06 [From Comtrex Cold-Cough] phenylephrine Allergy Hives Verified 10/13/18 06:06 [From Comtrex Cold-Cough] wool Allergy itchy Uncoded 10/13/18 06:06 Home Meds: Home Meds Ferrous Sulfate [Iron] 325 mg PO BID 05/09/18 [History] Pantoprazole Sodium 40 mg PO DAILY 05/09/18 [History] Furosemide 40 mg PO DAILY 10/02/18 [History] Spironolactone [Aldactone] 100 mg PO DAILY 10/02/18 [History] Folic Acid 1 mg PO DAILY 10/12/18 [History] Midodrine 5 mg PO TIDAC 10/12/18 [History] Multivits,Stress Formula/Zinc [Stress B with Zinc Tablet] 1 tab PO DAILY [History] Past Medical History - Past Health History Medical/Surgical History: Denies Medical/Surgical History HEENT History: Reports: Epistaxis Cardiovascular History: Reports: None Respiratory History: Reports: None Gastrointestinal History: Reports: Cholelithiasis, Cirrhosis, GI Bleed Other Gastrointestinal History: liver cirrhosis, gallbladder polyps Genitourinary History: Reports: None 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 States she is on her monthly and flow has been heavy Musculoskeletal History: Reports: None Neurological History: Reports: None Psychiatric History: Reports: Addiction Endocrine/Metabolic History: Reports: None Hematologic History: Reports: Anemia, Iron Deficiency Immunologic History: Reports: None Oncologic (Cancer) History: Reports: None Dermatologic History: Reports: None - Infectious Disease History Infectious Disease History: Reports: None - Past Surgical History GI Surgical History: Reports: None Other Female Surgeries/Procedures: heavy menstrual flow at this time Social & Family History - Family History Family Medical History: Noncontributory Cardiac: Reports: [place] Endocrine/Metabolic: Reports: Diabetes, type II - Tobacco Use Smoking Status *Q: Never Smoker Second Hand Smoke Exposure: Yes - Caffeine Use Caffeine Use: Reports: Soda, Tea - Recreational Drug Use Recreational Drug Use: No - Living Situation & Occupation Living situation: Reports: with Family Occupation: Unemployed ED ROS GENERAL - Review of Systems Review Of Systems: ROS reveals no pertinent complaints other than HPI. ED EXAM, GI/ABD - Physical Exam Exam: See Below Exam Limited By: No Limitations General Appearance: Alert, WD/WN, Mild Distress, Other (discomfort). No: Active Emesis Ears: Hearing Grossly Normal Throat/Mouth: Normal Voice, No Airway Compromise Head: Atraumatic Neck: Non-Tender, Full Range of Motion Respiratory/Chest: No Respiratory Distress Cardiovascular: Regular Rate, Rhythm GI/Abdominal Exam: Soft, Tender, Other (general discomfort). No: Distended, Guarding, Rigid, Rebound Neurological: Alert, Oriented, Normal Cognition, Normal Gait, No Motor/Sensory Deficits Psychiatric: Flat Affect Skin Exam: Warm, Dry, Normal Color Lymphatic: No Adenopathy Course - Vital Signs Last Recorded V/S: Last Vital Signs Temp 36.9 C 10/25/18 01:00 Pulse 64 10/25/18 01:00 Resp 14 10/25/18 01:00 BP 105/51 L 10/25/18 01:00 Pulse Ox 100 10/25/18 01:00 - Orders/Labs/Meds Orders: Active Orders 24 hr Category Date Time Status CULTURE URINE [RM] Stat Lab 10/25/18 01:20 Received UA W/MICROSCOPIC [URIN] Routine Lab 10/25/18 01:20 Results Ondansetron [Zofran] Med 10/25/18 03:33 Once 4 mg IV ONETIME ONE fentaNYL [Sublimaze] Med 10/25/18 03:33 Once 50 mcg IVPUSH ONETIME ONE Labs: Laboratory Tests 10/25/18 10/25/18 10/25/18 Range/Units 01:20 01:20 01:20 WBC (5.0-10.0) 10^3/uL RBC (4.2-5.4) 10^6/uL Hgb (12.0-16.0) g/dL Hct (37.0-47.0) % MCV (80-100) fL MCH (27.0-34.0) pg MCHC (33.0-35.0) g/dL Plt Count (150-450) 10^3/uL Neut % (Auto) (42.2-75.2) % Lymph % (Auto) (20.5-50.1) % [place] % (Auto) (2-8) % Eos % (Auto) (1.0-3.0) % Baso % (Auto) (0.0-1.0) % PT (9.0-12.0) SEC INR (0.9-1.2) Sodium (135-145) mmol/L Potassium (3.6-5.0) mmol/L Chloride (101-111) mmol/L Carbon Dioxide (21.0-31.0) mmol/L Anion Gap BUN (7-18) mg/dL Creatinine (0.6-1.3) mg/dL Est Cr Clr Drug Dosing mL/min Estimated GFR (MDRD) BUN/Creatinine Ratio Glucose (74-105) mg/dL Calcium (8.4-10.2) mg/dl Total Bilirubin (0.2-1.0) mg/dL AST (10-42) IU/L ALT (10-60) IU/L Alkaline Phosphatase (42-121) IU/L Ammonia (11-35) umol/L Total Protein (6.7-8.2) g/dl Albumin (3.2-5.5) g/dl Globulin Albumin/Globulin Ratio Urine Color Cancelled Dark yellow Urine Appearance Cancelled Slightly cloudy Urine pH Cancelled 6.0 Ur Specific [place] Cancelled 1.015 Urine Protein Cancelled Negative Urine Glucose (UA) Cancelled 100 H Urine Ketones Cancelled Negative Urine Occult Blood Cancelled Trace-intact H Urine Nitrite Cancelled Negative Urine Bilirubin Cancelled Large H Urine Urobilinogen Cancelled 4.0 H Ur Leukocyte Esterase Cancelled Trace H Urine RBC Cancelled 0-5 Urine WBC Cancelled 5-10 H Ur Epithelial Cells Cancelled Moderate H Calcium Phosphate Cryst Cancelled Calcium Oxalate Crystal Cancelled Uric Acid Crystals Cancelled Triple Phos Crystals Cancelled Other Crystals Cancelled Amorphous Sediment Cancelled Urine Bacteria Cancelled Moderate H Hyaline Casts Cancelled Moderate H Granular Casts Cancelled Moderate Fine Granular Casts Cancelled Coarse Granular Casts Cancelled Urine Mucus Cancelled Urine Other Cancelled Urine Trichomonas Cancelled Urine Yeast Cancelled Urinalysis Comment Cancelled Urine Opiates Screen Positive H (NEGATIVE) Ur Oxycodone Screen Negative (NEGATIVE) Urine Methadone Screen Negative (NEGATIVE) Ur Barbiturates Screen Negative (NEGATIVE) U Tricyclic Antidepress Negative (NEGATIVE) Ur Phencyclidine Scrn Negative (NEGATIVE) Ur Amphetamine Screen Negative (NEGATIVE) U Methamphetamines Scrn Negative (NEGATIVE) Urine MDMA Screen Negative (NEGATIVE) U Benzodiazepines Scrn Positive H (NEGATIVE) Urine Cocaine Screen Negative (NEGATIVE) U Marijuana (THC) Screen Negative (NEGATIVE) Ethyl Alcohol mg/dL 10/25/18 10/25/18 10/25/18 Range/Units 01:25 01:25 01:25 WBC 10.9 H (5.0-10.0) 10^3/uL RBC 3.50 L (4.2-5.4) 10^6/uL Hgb 10.1 L (12.0-16.0) g/dL Hct 30.0 L (37.0-47.0) % MCV 85.7 (80-100) fL MCH 28.9 (27.0-34.0) pg MCHC 33.7 (33.0-35.0) g/dL Plt Count 227 (150-450) 10^3/uL Neut % (Auto) 75.9 H (42.2-75.2) % Lymph % (Auto) 10.3 L (20.5-50.1) % [place] % (Auto) 7.0 (2-8) % Eos % (Auto) 5.8 H (1.0-3.0) % Baso % (Auto) 1.0 (0.0-1.0) % PT (9.0-12.0) SEC INR (0.9-1.2) Sodium 128 L (135-145) mmol/L Potassium 3.8 (3.6-5.0) mmol/L Chloride 97 L (101-111) mmol/L Carbon Dioxide 21.0 (21.0-31.0) mmol/L Anion Gap 13.8 BUN 14 (7-18) mg/dL Creatinine 1.4 H (0.6-1.3) mg/dL Est Cr Clr Drug Dosing 45.36 mL/min Estimated GFR (MDRD) 41 BUN/Creatinine Ratio 10.00 Glucose 86 (74-105) mg/dL Calcium 8.6 (8.4-10.2) mg/dl Total Bilirubin 17.5 H (0.2-1.0) mg/dL AST 167 H (10-42) IU/L ALT 91 H (10-60) IU/L Alkaline Phosphatase 110 (42-121) IU/L Ammonia 78 H (11-35) umol/L Total Protein 10.0 H (6.7-8.2) g/dl Albumin 2.5 L (3.2-5.5) g/dl Globulin 7.5 Albumin/Globulin Ratio 0.33 Urine Color Urine Appearance Urine pH Ur Specific [place] Urine Protein Urine Glucose (UA) Urine Ketones Urine Occult Blood Urine Nitrite Urine Bilirubin Urine Urobilinogen Ur Leukocyte Esterase Urine RBC Urine WBC Ur Epithelial Cells Calcium Phosphate Cryst Calcium Oxalate Crystal Uric Acid Crystals Triple Phos Crystals Other Crystals Amorphous Sediment Urine Bacteria Hyaline Casts Granular Casts Fine Granular Casts Coarse Granular Casts Urine Mucus Urine Other Urine Trichomonas Urine Yeast Urinalysis Comment Urine Opiates Screen (NEGATIVE) Ur Oxycodone Screen (NEGATIVE) Urine Methadone Screen (NEGATIVE) Ur Barbiturates Screen (NEGATIVE) U Tricyclic Antidepress (NEGATIVE) Ur Phencyclidine Scrn (NEGATIVE) Ur Amphetamine Screen (NEGATIVE) U Methamphetamines Scrn (NEGATIVE) Urine MDMA Screen (NEGATIVE) U Benzodiazepines Scrn (NEGATIVE) Urine Cocaine Screen (NEGATIVE) U Marijuana (THC) Screen (NEGATIVE) Ethyl Alcohol 0 mg/dL 10/25/18 Range/Units 01:25 WBC (5.0-10.0) 10^3/uL RBC (4.2-5.4) 10^6/uL Hgb (12.0-16.0) g/dL Hct (37.0-47.0) % MCV (80-100) fL MCH (27.0-34.0) pg MCHC (33.0-35.0) g/dL Plt Count (150-450) 10^3/uL Neut % (Auto) (42.2-75.2) % Lymph % (Auto) (20.5-50.1) % [place] % (Auto) (2-8) % Eos % (Auto) (1.0-3.0) % Baso % (Auto) (0.0-1.0) % PT 15.0 H (9.0-12.0) SEC INR 1.5 H (0.9-1.2) Sodium (135-145) mmol/L Potassium (3.6-5.0) mmol/L Chloride (101-111) mmol/L Carbon Dioxide (21.0-31.0) mmol/L Anion Gap BUN (7-18) mg/dL Creatinine (0.6-1.3) mg/dL Est Cr Clr Drug Dosing mL/min Estimated GFR (MDRD) BUN/Creatinine Ratio Glucose (74-105) mg/dL Calcium (8.4-10.2) mg/dl Total Bilirubin (0.2-1.0) mg/dL AST (10-42) IU/L ALT (10-60) IU/L Alkaline Phosphatase (42-121) IU/L Ammonia (11-35) umol/L Total Protein (6.7-8.2) g/dl Albumin (3.2-5.5) g/dl Globulin Albumin/Globulin Ratio Urine Color Urine Appearance Urine pH Ur Specific [place] Urine Protein Urine Glucose (UA) Urine Ketones Urine Occult Blood Urine Nitrite Urine Bilirubin Urine Urobilinogen Ur Leukocyte Esterase Urine RBC Urine WBC Ur Epithelial Cells Calcium Phosphate Cryst Calcium Oxalate Crystal Uric Acid Crystals Triple Phos Crystals Other Crystals Amorphous Sediment Urine Bacteria Hyaline Casts Granular Casts Fine Granular Casts Coarse Granular Casts Urine Mucus Urine Other Urine Trichomonas Urine Yeast Urinalysis Comment Urine Opiates Screen (NEGATIVE) Ur Oxycodone Screen (NEGATIVE) Urine Methadone Screen (NEGATIVE) Ur Barbiturates Screen (NEGATIVE) U Tricyclic Antidepress (NEGATIVE) Ur Phencyclidine Scrn (NEGATIVE) Ur Amphetamine Screen (NEGATIVE) U Methamphetamines Scrn (NEGATIVE) Urine MDMA Screen (NEGATIVE) U Benzodiazepines Scrn (NEGATIVE) Urine Cocaine Screen (NEGATIVE) U Marijuana (THC) Screen (NEGATIVE) Ethyl Alcohol mg/dL - Re-Assessments/Exams Free Text/Narrative Re-Assessment/Exam: 10/25/18 03:[address] Olivas @ who kindly accepted pt. Departure - Departure Time of Disposition: 03:35 Disposition: DC/Tfer to Acute Hospital 02 Condition: Fair Clinical Impression: Alcoholic cirrhosis of liver without ascites Vomiting Qualifiers: Vomiting type: unspecified Vomiting Intractability: non-intractable Nausea presence: with nausea Qualified Code(s): R11.2 - Nausea with vomiting, unspecified - Discharge Information Forms: Interfacility Transfer ANA - My Orders Last 24 Hours: My Active Orders 10/25/18 01:20 CULTURE URINE [RM] Stat UA W/MICROSCOPIC [URIN] Routine 10/25/18 03:33 Ondansetron [Zofran] 4 mg IV ONETIME ONE fentaNYL [Sublimaze] 50 mcg IVPUSH ONETIME ONE - Assessment/Plan Last 24 Hours: My Active Orders 10/25/18 01:20 CULTURE URINE [RM] Stat UA W/MICROSCOPIC [URIN] Routine 10/25/18 03:33 Ondansetron [Zofran] 4 mg IV ONETIME ONE fentaNYL [Sublimaze] 50 mcg IVPUSH ONETIME ONE
[2018-10-25 02:04] LABS: ANION GAP 13.8; CHLORIDE,CL 97 mmol/L (101-111); SODIUM,NA 128 mmol/L (135-145)
[2018-10-25] MEDS ORDERED: fentaNYL 100 MCG/2 ML SDV IVPUSH ONE (03:33)
[2018-10-25] MEDS ORDERED: Ondansetron 4 MG/2 ML SDV IV ONE (03:33)
[2018-10-25 03:56] VITALS: BP 95/40
== END 2018-10-25 04:41 ==
LOC: DL.ED 00:07
DX: K70.30 Alcoholic cirrhosis of liver without ascites (principal); F10.20 Alcohol dependence, uncomplicated; Z88.8 Allergy status to other drugs, medicaments and biological substances; Z79.899 Other long term (current) drug therapy; Z77.22 Contact with and (suspected) exposure to environmental tobacco smoke (acute) (chronic)
CPT/HCPCS: 36415; 80053; 80305; 81001; 82140; 85025; 85610; 87086; 87088; 87186; 96374; 96375; 99285; G0480; J2405; J3010

== ENCOUNTER 2019-02-13 23:09 | Emergency (ER) | payer SELFPAY ==
[2019-02-14 00:47] LABS: ANION GAP 11.8; CHLORIDE,CL 109 mmol/L (101-111); SODIUM,NA 136 mmol/L (135-145)
[2019-02-14] MEDS ORDERED: Morphine 2 MG/ML Syringe IVPUSH ONE (00:47)
[2019-02-14] MEDS ORDERED: Ondansetron 4 MG/2 ML SDV IV ONE (00:47)
[2019-02-14 00:57] VITALS: BP 101/56; PULSE 84
[2019-02-14] MEDS ORDERED: Iopamidol 612 MG/ML 75 ML Bottle IVPUSH ONE (01:07)
--- NOTE | 2019-02-14 02:20 | EDM.PDOC ---
ED HPI GENERAL MEDICAL PROBLEM - General Chief Complaint: Abdominal Pain Stated Complaint: PAINS IN STOMACH AND BACK Time Seen by Provider: 02/14/19 02:19 Source of Information: Reports: Patient History Limitations: Reports: No Limitations - History of Present Illness INITIAL COMMENTS - FREE TEXT/NARRATIVE: c/o recurrent abd pain. Treatments DIRECTOR SPORTS: Reports: Acetaminophen Abdominal Pain Score (Numeric/FACES): 7 - Related Data Allergies Allergy/AdvReac Type Severity Reaction Status Date / Time acetaminophen Allergy Hives Verified 02/14/19 00:24 [From Comtrex Cold-Cough] dextromethorphan Allergy Hives Verified 02/14/19 00:24 [From Comtrex Cold-Cough] phenylephrine Allergy Hives Verified 02/14/19 00:24 [From Comtrex Cold-Cough] wool Allergy itchy Uncoded 02/14/19 00:24 Home Meds: Home Meds Ferrous Sulfate [Iron] 325 mg PO BID 05/09/18 [History] Pantoprazole Sodium 40 mg PO DAILY 05/09/18 [History] Folic Acid 1 mg PO DAILY 10/12/18 [History] Furosemide 20 mg PO DAILY 01/04/19 [History] Rifaximin [Xifaxan] 550 mg PO BID 01/04/19 [History] Lactulose [Cephulac] 20 gm PO TID 30 Days #90 cup 01/06/19 [Rx] Magnesium Oxide 500 mg PO DAILY 14 Days #14 capsule 01/06/19 [Rx] Spironolactone 25 mg PO DAILY 30 Days #30 tablet 01/06/19 [Rx] Past Medical History - Past Health History Medical/Surgical History: Denies Medical/Surgical History HEENT History: Reports: Epistaxis, Impaired Vision Cardiovascular History: Reports: None Respiratory History: Reports: None Gastrointestinal History: Reports: Cholelithiasis, Cirrhosis, GERD, GI Bleed Other Gastrointestinal History: liver cirrhosis, gallbladder polyps Genitourinary History: Reports: None 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 martínez fx. Neurological History: Reports: None Psychiatric History: Reports: Addiction Endocrine/Metabolic History: Reports: None Hematologic History: Reports: Anemia, Iron Deficiency Immunologic History: Reports: None Oncologic (Cancer) History: Reports: None Dermatologic History: Reports: None - Infectious Disease History Infectious Disease History: Reports: None - Past Surgical History GI Surgical History: Reports: None Other Female Surgeries/Procedures: heavy menstrual flow at this time Social & Family History - Family History Family Medical History: Noncontributory Cardiac: Reports: [place] Endocrine/Metabolic: Reports: Diabetes, type II - Tobacco Use Smoking Status *Q: Never Smoker Second Hand Smoke Exposure: No - Caffeine Use Caffeine Use: Reports: Coffee - Alcohol Use Date of Last Drink: 09/21/18 Time of Last Drink: 04:00 - Recreational Drug Use Recreational Drug Use: No - Living Situation & Occupation Living situation: Reports: with Family Occupation: Unemployed ED ROS GENERAL - Review of Systems Review Of Systems: ROS reveals no pertinent complaints other than HPI. ED EXAM, GI/ABD - Physical Exam Exam: See Below Exam Limited By: No Limitations General Appearance: Alert, WD/WN, Mild Distress, Moderate Distress (discomfort) , Other Ears: Hearing Grossly Normal Throat/Mouth: Normal Voice, No Airway Compromise Head: Atraumatic Neck: Non-Tender, Full Range of Motion Respiratory/Chest: No Respiratory Distress Cardiovascular: Regular Rate, Rhythm GI/Abdominal Exam: Tender. No: Distended, Guarding, Rigid, Rebound Neurological: Alert, Oriented, Normal Cognition, Normal Gait, No Motor/Sensory Deficits Psychiatric: Flat Affect Skin Exam: Jaundice Lymphatic: No Adenopathy Course - Vital Signs Last Recorded V/S: Last Vital Signs Temp 37.7 C 02/14/19 00:57 Pulse 84 02/14/19 00:57 Resp 16 02/14/19 00:57 BP 101/56 L 02/14/19 00:57 Pulse Ox 100 02/14/19 00:57 - Orders/Labs/Meds Orders: Active Orders 24 hr Category Date Time Status Abdomen Pelvis w Cont [CT] Urgent Exams 02/14/19 01:07 Taken Labs: Laboratory Tests 02/14/19 02/14/19 02/14/19 Range/Units 00:10 00:15 00:15 WBC 7.5 (5.0-10.0) 10^3/uL RBC 3.04 L (4.2-5.4) 10^6/uL Hgb 9.6 L D (12.0-16.0) g/dL Hct 28.7 L (37.0-47.0) % MCV 94.4 D (80-100) fL MCH 31.6 (27.0-34.0) pg MCHC 33.4 (33.0-35.0) g/dL Plt Count 107 L (150-450) 10^3/uL Neut % (Auto) 72.8 (42.2-75.2) % Lymph % (Auto) 10.3 L (20.5-50.1) % [place] % (Auto) 8.3 H (2-8) % Eos % (Auto) 7.1 H (1.0-3.0) % Baso % (Auto) 1.5 H (0.0-1.0) % Sodium 136 (135-145) mmol/L Potassium 3.8 (3.6-5.0) mmol/L Chloride 109 (101-111) mmol/L Carbon Dioxide 19.0 L (21.0-31.0) mmol/L Anion Gap 11.8 BUN 17 (7-18) mg/dL Creatinine 0.9 (0.6-1.3) mg/dL Est Cr Clr Drug Dosing 72.53 mL/min Estimated GFR (MDRD) > 60 BUN/Creatinine Ratio 18.88 Glucose 81 (74-105) mg/dL Lactic Acid (0.5-2.2) mmol/L Calcium 8.4 (8.4-10.2) mg/dl Total Bilirubin 1.7 H (0.2-1.0) mg/dL AST 38 (10-42) IU/L ALT 28 (10-60) IU/L Alkaline Phosphatase 75 (42-121) IU/L Total Protein 7.8 (6.7-8.2) g/dl Albumin 3.1 L (3.2-5.5) g/dl Globulin 4.7 Albumin/Globulin Ratio 0.66 Amylase 72 (28-100) U/L Lipase 39 (22-51) U/L Urine Color (YELLOW) Urine Appearance (CLEAR) Urine pH (5.0-9.0) Ur Specific [place] (1.005-1.030) Urine Protein (NEGATIVE) Urine Glucose (UA) (NEGATIVE) Urine Ketones (NEGATIVE) Urine Occult Blood (NEGATIVE) Urine Nitrite (NEGATIVE) Urine Bilirubin (NEGATIVE) Urine Urobilinogen (0.2-1.0) mg/dL Ur Leukocyte Esterase (NEGATIVE) Urine Opiates Screen Negative (NEGATIVE) Ur Oxycodone Screen Negative (NEGATIVE) Urine Methadone Screen Negative (NEGATIVE) Ur Barbiturates Screen Negative (NEGATIVE) U Tricyclic Antidepress Negative (NEGATIVE) Ur Phencyclidine Scrn Negative (NEGATIVE) Ur Amphetamine Screen Negative (NEGATIVE) U Methamphetamines Scrn Negative (NEGATIVE) Urine MDMA Screen Negative (NEGATIVE) U Benzodiazepines Scrn Negative (NEGATIVE) Urine Cocaine Screen Negative (NEGATIVE) U Marijuana (THC) Screen Negative (NEGATIVE) 02/14/19 02/14/19 Range/Units 00:15 00:55 WBC (5.0-10.0) 10^3/uL RBC (4.2-5.4) 10^6/uL Hgb (12.0-16.0) g/dL Hct (37.0-47.0) % MCV (80-100) fL MCH (27.0-34.0) pg MCHC (33.0-35.0) g/dL Plt Count (150-450) 10^3/uL Neut % (Auto) (42.2-75.2) % Lymph % (Auto) (20.5-50.1) % [place] % (Auto) (2-8) % Eos % (Auto) (1.0-3.0) % Baso % (Auto) (0.0-1.0) % Sodium (135-145) mmol/L Potassium (3.6-5.0) mmol/L Chloride (101-111) mmol/L Carbon Dioxide (21.0-31.0) mmol/L Anion Gap BUN (7-18) mg/dL Creatinine (0.6-1.3) mg/dL Est Cr Clr Drug Dosing mL/min Estimated GFR (MDRD) BUN/Creatinine Ratio Glucose (74-105) mg/dL Lactic Acid 1.1 (0.5-2.2) mmol/L Calcium (8.4-10.2) mg/dl Total Bilirubin (0.2-1.0) mg/dL AST (10-42) IU/L ALT (10-60) IU/L Alkaline Phosphatase (42-121) IU/L Total Protein (6.7-8.2) g/dl Albumin (3.2-5.5) g/dl Globulin Albumin/Globulin Ratio Amylase (28-100) U/L Lipase (22-51) U/L Urine Color Yellow (YELLOW) Urine Appearance Clear (CLEAR) Urine pH 6.0 (5.0-9.0) Ur Specific [place] >= 1.030 (1.005-1.030) Urine Protein Negative (NEGATIVE) Urine Glucose (UA) Negative (NEGATIVE) Urine Ketones Negative (NEGATIVE) Urine Occult Blood Negative (NEGATIVE) Urine Nitrite Negative (NEGATIVE) Urine Bilirubin Negative (NEGATIVE) Urine Urobilinogen 4.0 H (0.2-1.0) mg/dL Ur Leukocyte Esterase Negative (NEGATIVE) Urine Opiates Screen (NEGATIVE) Ur Oxycodone Screen (NEGATIVE) Urine Methadone Screen (NEGATIVE) Ur Barbiturates Screen (NEGATIVE) U Tricyclic Antidepress (NEGATIVE) Ur Phencyclidine Scrn (NEGATIVE) Ur Amphetamine Screen (NEGATIVE) U Methamphetamines Scrn (NEGATIVE) Urine MDMA Screen (NEGATIVE) U Benzodiazepines Scrn (NEGATIVE) Urine Cocaine Screen (NEGATIVE) U Marijuana (THC) Screen (NEGATIVE) Meds: Medications Discontinued Medications Generic Name Dose Route Start Last Admin Trade Name Meme PRN Reason Stop Dose Admin Iopamidol 75 ml 02/14/19 01:07 02/14/19 01:16 Isovue-300 (61%) IVPUSH 02/14/19 01:08 75 ml ONETIME ONE Administration Morphine Sulfate 2 mg 02/14/19 00:47 02/14/19 00:53 Morphine IVPUSH 02/14/19 00:48 2 mg ONETIME ONE Administration Ondansetron HCl 4 mg 02/14/19 00:47 02/14/19 00:53 Zofran IV 02/14/19 00:48 4 mg ONETIME ONE Administration - Re-Assessments/Exams Free Text/Narrative Re-Assessment/Exam: 02/14/19 02:21 results discussed with pt Departure - Departure Time of Disposition: 02:22 Disposition: Home, Self-Care 01 Condition: Fair Clinical Impression: Alcoholic cirrhosis of liver without ascites Abdominal pain Qualifiers: Abdominal location: left upper quadrant Qualified Code(s): R10.12 - Left upper quadrant pain - Discharge Information Forms: ED Department Discharge Additional Instructions: 1) follow up at clinic - My Orders Last 24 Hours: My Active Orders 02/14/19 01:07 Abdomen Pelvis w Cont [CT] Urgent - Assessment/Plan Last 24 Hours: My Active Orders 02/14/19 01:07 Abdomen Pelvis w Cont [CT] Urgent
== END 2019-02-14 03:20 | disposition home or self-care (01) ==
LOC: DL.ED 23:09
DX: K70.30 Alcoholic cirrhosis of liver without ascites (principal); R10.12 Left upper quadrant pain; D64.9 Anemia, unspecified; K21.9 Gastro-esophageal reflux disease without esophagitis; Z79.899 Other long term (current) drug therapy; Z88.8 Allergy status to other drugs, medicaments and biological substances
CPT/HCPCS: 36415; 74177; 80053; 80305; 81003; 82150; 83605; 83690; 85025; 96374; 96375; 99284; J2270; J2405; Q9967

== ENCOUNTER 2019-03-25 22:38 | Emergency (ER) | payer BC, OTHER ==
[2019-03-25 22:48] VITALS: BP 104/40; PULSE 71
--- NOTE | 2019-03-25 23:35 | EDM.PDOC ---
ED HPI GENERAL MEDICAL PROBLEM - General Chief Complaint: Abdominal Pain Stated Complaint: STOMACH PAIN Time Seen by Provider: 03/25/19 23:32 Source of Information: Reports: Patient History Limitations: Reports: No Limitations - History of Present Illness INITIAL COMMENTS - FREE TEXT/NARRATIVE: c/o recurrent abd pain. last time had is drained was May in [place]. doesn't have f/ u appointment. present problem started tonight. Abdomen Pain Score (Numeric/FACES): 7 - Related Data Allergies Allergy/AdvReac Type Severity Reaction Status Date / Time acetaminophen Allergy Hives Verified 03/25/19 22:49 [From Comtrex Cold-Cough] dextromethorphan Allergy Hives Verified 03/25/19 22:49 [From Comtrex Cold-Cough] phenylephrine Allergy Hives Verified 03/25/19 22:49 [From Comtrex Cold-Cough] wool Allergy itchy Uncoded 03/25/19 22:49 Home Meds: Home Meds Ferrous Sulfate [Iron] 325 mg PO BID 05/09/18 [History] Pantoprazole Sodium 40 mg PO DAILY 05/09/18 [History] Folic Acid 1 mg PO DAILY 10/12/18 [History] Furosemide 20 mg PO DAILY 01/04/19 [History] Lactulose [Cephulac] 20 gm PO TID 30 Days #90 cup 01/06/19 [Rx] Spironolactone 25 mg PO DAILY 30 Days #30 tablet 01/06/19 [Rx] Past Medical History - Past Health History Medical/Surgical History: Denies Medical/Surgical History HEENT History: Reports: Epistaxis, Impaired Vision Cardiovascular History: Reports: None Respiratory History: Reports: None Gastrointestinal History: Reports: Cholelithiasis, Cirrhosis, GERD, GI Bleed Other Gastrointestinal History: liver cirrhosis, gallbladder polyps Genitourinary History: Reports: None 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 martínez fx. Neurological History: Reports: None Psychiatric History: Reports: Addiction Endocrine/Metabolic History: Reports: None Hematologic History: Reports: Anemia, Iron Deficiency Immunologic History: Reports: None Oncologic (Cancer) History: Reports: None Dermatologic History: Reports: None - Infectious Disease History Infectious Disease History: Reports: None - Past Surgical History GI Surgical History: Reports: None Other Female Surgeries/Procedures: heavy menstrual flow at this time Social & Family History - Family History Family Medical History: Noncontributory Cardiac: Reports: [place] Endocrine/Metabolic: Reports: Diabetes, type II - Tobacco Use Smoking Status *Q: Never Smoker Second Hand Smoke Exposure: No - Caffeine Use Caffeine Use: Reports: Coffee - Recreational Drug Use Recreational Drug Use: No - Living Situation & Occupation Living situation: Reports: with Family Occupation: Unemployed ED ROS GENERAL - Review of Systems Review Of Systems: ROS reveals no pertinent complaints other than HPI. ED EXAM, GI/ABD - Physical Exam Exam: See Below Exam Limited By: No Limitations General Appearance: Alert, WD/WN, Mild Distress, Other (discomfort). No: Active Emesis Ears: Hearing Grossly Normal Throat/Mouth: Normal Voice, No Airway Compromise Head: Atraumatic Neck: Non-Tender, Full Range of Motion Respiratory/Chest: No Respiratory Distress Cardiovascular: Regular Rate, Rhythm GI/Abdominal Exam: Soft, Distended, Tender, Other (mild periumb tenderness, ascites). No: Guarding, Rigid, Rebound Neurological: Alert, Oriented, Normal Cognition, Normal Gait, No Motor/Sensory Deficits Psychiatric: Flat Affect Skin Exam: Warm, Dry, Normal Color Lymphatic: No Adenopathy Course - Vital Signs Last Recorded V/S: Last Vital Signs Temp 37.4 C 03/25/19 22:44 Pulse 71 03/25/19 22:44 Resp 18 03/25/19 22:44 BP 104/40 L 03/25/19 22:44 Pulse Ox 100 03/25/19 22:44 - Orders/Labs/Meds Orders: Active Orders 24 hr Category Date Time Status CBC WITH AUTO DIFF [HEME] Stat Lab 03/25/19 23:41 Results MANUAL DIFFERENTIAL QA/NC [HEME] Stat Lab 03/25/19 23:41 Results Acetaminophen/HYDROcodone [[place] 325-10 MG] Med 03/26/19 00:41 Once 1 tab PO ONETIME ONE Lactulose [Cephulac] Med 03/26/19 00:41 Once 20 gm PO ONETIME ONE Medication Orders Lactulose (Cephulac) 20 gm PO ONETIME ONE Stop: 03/26/19 00:42 Labs: Laboratory Tests 03/25/19 03/25/19 03/25/19 Range/Units 23:41 23:41 23:41 WBC 5.0 (5.0-10.0) 10^3/uL RBC 2.64 L (4.2-5.4) 10^6/uL Hgb 8.4 L (12.0-16.0) g/dL Hct 25.3 L (37.0-47.0) % MCV 95.8 (80-100) fL MCH 31.8 (27.0-34.0) pg MCHC 33.2 (33.0-35.0) g/dL Plt Count 82 L (150-450) 10^3/uL Neut % (Auto) 50.7 (42.2-75.2) % Lymph % (Auto) 22.1 (20.5-50.1) % [place] % (Auto) 11.3 H (2-8) % Eos % (Auto) 14.5 H (1.0-3.0) % Baso % (Auto) 1.4 H (0.0-1.0) % Add Manual Diff Yes Sodium 138 (135-145) mmol/L Potassium 4.3 (3.6-5.0) mmol/L Chloride 109 (101-111) mmol/L Carbon Dioxide 22.0 (21.0-31.0) mmol/L Anion Gap 11.3 BUN 14 (7-18) mg/dL Creatinine 1.1 (0.6-1.3) mg/dL Est Cr Clr Drug Dosing 59.34 mL/min Estimated GFR (MDRD) 54 BUN/Creatinine Ratio 12.72 Glucose 95 (74-105) mg/dL Lactic Acid (0.5-2.2) mmol/L Calcium 8.3 L (8.4-10.2) mg/dl Total Bilirubin 1.6 H (0.2-1.0) mg/dL AST 31 (10-42) IU/L ALT 22 (10-60) IU/L Alkaline Phosphatase 69 (42-121) IU/L Ammonia 142 H (11-35) umol/L Total Protein 6.3 L (6.7-8.2) g/dl Albumin 2.7 L (3.2-5.5) g/dl Globulin 3.6 Albumin/Globulin Ratio 0.75 03/25/ Range/Units 23:41 WBC (5.0-10.0) 10^3/uL RBC (4.2-5.4) 10^6/uL Hgb (12.0-16.0) g/dL Hct (37.0-47.0) % MCV (80-100) fL MCH (27.0-34.0) pg MCHC (33.0-35.0) g/dL Plt Count (150-450) 10^3/uL Neut % (Auto) (42.2-75.2) % Lymph % (Auto) (20.5-50.1) % [place] % (Auto) (2-8) % Eos % (Auto) (1.0-3.0) % Baso % (Auto) (0.0-1.0) % Add Manual Diff Sodium (135-145) mmol/L Potassium (3.6-5.0) mmol/L Chloride (101-111) mmol/L Carbon Dioxide (21.0-31.0) mmol/L Anion Gap BUN (7-18) mg/dL Creatinine (0.6-1.3) mg/dL Est Cr Clr Drug Dosing mL/min Estimated GFR (MDRD) BUN/Creatinine Ratio Glucose (74-105) mg/dL Lactic Acid 1.1 (0.5-2.2) mmol/L Calcium (8.4-10.2) mg/dl Total Bilirubin (0.2-1.0) mg/dL AST (10-42) IU/L ALT (10-60) IU/L Alkaline Phosphatase (42-121) IU/L Ammonia (11-35) umol/L Total Protein (6.7-8.2) g/dl Albumin (3.2-5.5) g/dl Globulin Albumin/Globulin Ratio Meds: Medications Generic Name Dose Route Start Last Admin Trade Name Freq PRN Reason Stop Dose Admin Lactulose 20 gm 03/26/19 00:41 Cephulac PO 03/26/19 00:42 ONETIME ONE - Re-Assessments/Exams Free Text/Narrative Re-Assessment/Exam: 03/26/19 00:43 results discussed with pt who states she will f/u with her PMD tomorrow. also has been taking her lactulose as prescribed. Departure - Departure Time of Disposition: 00:44 Disposition: Home, Self-Care 01 Condition: Good Clinical Impression: Abdominal pain Qualifiers: Abdominal location: left upper quadrant Qualified Code(s): R10.12 - Left upper quadrant pain ALC (alcoholic liver cirrhosis) Qualifiers: Ascites presence: unspecified Qualified Code(s): K70.30 - Alcoholic cirrhosis of liver without ascites - Discharge Information Forms: ED Department Discharge Additional Instructions: 1) see family doctor tomorrow 2) recheck as needed - My Orders Last 24 Hours: My Active Orders 03/25/19 23:41 CBC WITH AUTO DIFF [HEME] Stat MANUAL DIFFERENTIAL QA/NC [HEME] Stat 03/26/19 00:41 Acetaminophen/HYDROcodone [[place] 325-10 MG] 1 tab PO ONETIME ONE Lactulose [Cephulac] 20 gm PO ONETIME ONE - Assessment/Plan Last 24 Hours: My Active Orders 03/25/19 23:41 CBC WITH AUTO DIFF [HEME] Stat MANUAL DIFFERENTIAL QA/NC [HEME] Stat 03/26/19 00:41 Acetaminophen/HYDROcodone [[place] 325-10 MG] 1 tab PO ONETIME ONE Lactulose [Cephulac] 20 gm PO ONETIME ONE
[2019-03-26 00:04] LABS: ANION GAP 11.3
[2019-03-26] MEDS ORDERED: Acetaminophen/HYDROcodone 325-10 MG Tab PO ONE (00:41)
[2019-03-26] MEDS ORDERED: Lactulose Soln 10 GM/15 ML 30 ML UD Cup PO ONE (00:41)
== END 2019-03-26 00:51 | disposition home or self-care (01) ==
LOC: DL.ED 22:38
DX: K70.30 Alcoholic cirrhosis of liver without ascites (principal); K21.9 Gastro-esophageal reflux disease without esophagitis; Z88.6 Allergy status to analgesic agent; Z88.8 Allergy status to other drugs, medicaments and biological substances; Z91.048 Other nonmedicinal substance allergy status; Z79.899 Other long term (current) drug therapy
CPT/HCPCS: 36415; 80053; 82140; 83605; 85025; 99284; A9270

== ENCOUNTER 2019-03-26 23:33 | Emergency (ER) | payer BC ==
[2019-03-26] MEDS ORDERED: Morphine 2 MG/ML Syringe IVPUSH ONE (23:42)
[2019-03-26] MEDS ORDERED: Ondansetron 4 MG/2 ML SDV IV ONE (23:42)
--- NOTE | 2019-03-26 23:47 | EDM.PDOC ---
ED HPI GENERAL MEDICAL PROBLEM - General Stated Complaint: STOMACH PAINS Time Seen by Provider: 03/26/19 23:44 Source of Information: Reports: Patient History Limitations: Reports: No Limitations - History of Present Illness INITIAL COMMENTS - FREE TEXT/NARRATIVE: was here last night for same. did f/u at [facility] had US told has stones and given ursodiol to dissolve gall stone and rifaximin for high ammonia. but continue to had nausea and abd pain. - Related Data Allergies Allergy/AdvReac Type Severity Reaction Status Date / Time acetaminophen Allergy Hives Verified 03/26/19 23:47 [From Comtrex Cold-Cough] dextromethorphan Allergy Hives Verified 03/26/19 23:47 [From Comtrex Cold-Cough] phenylephrine Allergy Hives Verified 03/26/19 23:47 [From Comtrex Cold-Cough] wool Allergy itchy Uncoded 03/26/19 23:47 Home Meds: Home Meds Ferrous Sulfate [Iron] 325 mg PO BID 05/09/18 [History] Pantoprazole Sodium 40 mg PO DAILY 05/09/18 [History] Folic Acid 1 mg PO DAILY 10/12/18 [History] Furosemide 20 mg PO DAILY 01/04/19 [History] Lactulose [Cephulac] 20 gm PO TID 30 Days #90 cup 01/06/19 [Rx] Spironolactone 25 mg PO DAILY 30 Days #30 tablet 01/06/19 [Rx] Ondansetron [Zofran ODT] 4 mg PO Q6H PRN 03/27/19 [History] Rifaximin [Xifaxan] 550 mg PO BID 03/27/19 [History] Ursodiol 300 mg PO BID 03/27/19 [History] Past Medical History - Past Health History Medical/Surgical History: Denies Medical/Surgical History HEENT History: Reports: Epistaxis, Impaired Vision Cardiovascular History: Reports: None Respiratory History: Reports: None Gastrointestinal History: Reports: Cholelithiasis, Cirrhosis, GERD, GI Bleed Other Gastrointestinal History: liver cirrhosis, gallbladder polyps Genitourinary History: Reports: None 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 martínez gonzales. Neurological History: Reports: None Psychiatric History: Reports: Addiction Endocrine/Metabolic History: Reports: None Hematologic History: Reports: Anemia, Iron Deficiency Immunologic History: Reports: None Oncologic (Cancer) History: Reports: None Dermatologic History: Reports: None - Infectious Disease History Infectious Disease History: Reports: None - Past Surgical History GI Surgical History: Reports: None Other Female Surgeries/Procedures: heavy menstrual flow at this time Social & Family History - Family History Family Medical History: Noncontributory Cardiac: Reports: [place] Endocrine/Metabolic: Reports: Diabetes, type II - Caffeine Use Caffeine Use: Reports: Coffee - Living Situation & Occupation Living situation: Reports: with Family Occupation: Unemployed ED ROS GENERAL - Review of Systems Review Of Systems: ROS reveals no pertinent complaints other than HPI. ED EXAM, GI/ABD - Physical Exam Exam: See Below Exam Limited By: No Limitations General Appearance: Alert, WD/WN, Mild Distress, Moderate Distress, Other ( discomfort). No: Active Emesis Ears: Hearing Grossly Normal Throat/Mouth: Normal Voice, No Airway Compromise Head: Atraumatic Neck: Non-Tender, Full Range of Motion Respiratory/Chest: No Respiratory Distress Cardiovascular: Regular Rate, Rhythm GI/Abdominal Exam: Tender, Other (epiG region). No: Distended, Guarding, Rigid , Rebound Neurological: Alert, Oriented, Normal Cognition, Normal Gait, No Motor/Sensory Deficits Psychiatric: Flat Affect Skin Exam: Warm, Dry, Normal Color Lymphatic: No Adenopathy Course - Vital Signs Last Recorded V/S: Last Vital Signs Temp 36.6 C 03/26/19 23:35 Pulse 80 03/26/19 23:35 Resp 18 03/26/19 23:35 BP 108/43 L 03/26/19 23:35 Pulse Ox 99 03/26/19 23:35 - Orders/Labs/Meds Orders: Active Orders 24 hr Category Date Time Status AMYLASE [CHEM] Stat Lab 03/26/19 23:43 Results B-TYPE NATRIURETIC PEPTIDE,BNP [CHEM] Stat Lab 03/26/19 23:43 Results CBC WITH AUTO DIFF [HEME] Stat Lab 03/26/19 23:43 Results COMPREHENSIVE METABOLIC PN,CMP [CHEM] Stat Lab 03/26/19 23:43 Results LIPASE [CHEM] Stat Lab 03/26/19 23:43 Results MANUAL DIFFERENTIAL QA/NC [HEME] Stat Lab 03/26/19 23:43 Results Labs: Laboratory Tests 03/26/19 03/26/19 03/26/19 Range/Units 23:43 23:43 23:43 WBC 7.8 (5.0-10.0) 10^3/uL RBC 2.65 L (4.2-5.4) 10^6/uL Hgb 8.5 L (12.0-16.0) g/dL Hct 25.5 L (37.0-47.0) % MCV 96.2 (80-100) fL MCH 32.1 (27.0-34.0) pg MCHC 33.3 (33.0-35.0) g/dL Plt Count 80 L (150-450) 10^3/uL Neut % (Auto) 62.0 (42.2-75.2) % Lymph % (Auto) 13.4 L (20.5-50.1) % [place] % (Auto) 12.8 H (2-8) % Eos % (Auto) 10.4 H (1.0-3.0) % Baso % (Auto) 1.4 H (0.0-1.0) % Add Manual Diff Yes Sodium 136 (135-145) mmol/L Potassium 4.1 (3.6-5.0) mmol/L Chloride 110 (101-111) mmol/L Carbon Dioxide 22.0 (21.0-31.0) mmol/L Anion Gap 8.1 BUN 17 (7-18) mg/dL Creatinine 0.8 (0.6-1.3) mg/dL Est Cr Clr Drug Dosing 81.59 mL/min Estimated GFR (MDRD) > 60 BUN/Creatinine Ratio 21.25 Glucose 99 (74-105) mg/dL Lactic Acid (0.5-2.2) mmol/L Calcium 8.5 (8.4-10.2) mg/dl Total Bilirubin 1.4 H (0.2-1.0) mg/dL AST 32 (10-42) IU/L ALT 23 (10-60) IU/L Alkaline Phosphatase 73 (42-121) IU/L Ammonia 125 H (11-35) umol/L Total Protein 6.5 L (6.7-8.2) g/dl Albumin 2.8 L (3.2-5.5) g/dl Globulin 3.7 Albumin/Globulin Ratio 0.76 Amylase 78 (28-100) U/L Lipase 38 (22-51) U/L 03/26/19 Range/Units 23:43 WBC (5.0-10.0) 10^3/uL RBC (4.2-5.4) 10^6/uL Hgb (12.0-16.0) g/dL Hct (37.0-47.0) % MCV (80-100) fL MCH (27.0-34.0) pg MCHC (33.0-35.0) g/dL Plt Count (150-450) 10^3/uL Neut % (Auto) (42.2-75.2) % Lymph % (Auto) (20.5-50.1) % [place] % (Auto) (2-8) % Eos % (Auto) (1.0-3.0) % Baso % (Auto) (0.0-1.0) % Add Manual Diff Sodium (135-145) mmol/L Potassium (3.6-5.0) mmol/L Chloride (101-111) mmol/L Carbon Dioxide (21.0-31.0) mmol/L Anion Gap BUN (7-18) mg/dL Creatinine (0.6-1.3) mg/dL Est Cr Clr Drug Dosing mL/min Estimated GFR (MDRD) BUN/Creatinine Ratio Glucose (74-105) mg/dL Lactic Acid 1.1 (0.5-2.2) mmol/L Calcium (8.4-10.2) mg/dl Total Bilirubin (0.2-1.0) mg/dL AST (10-42) IU/L ALT (10-60) IU/L Alkaline Phosphatase (42-121) IU/L Ammonia (11-35) umol/L Total Protein (6.7-8.2) g/dl Albumin (3.2-5.5) g/dl Globulin Albumin/Globulin Ratio Amylase (28-100) U/L Lipase (22-51) U/L Meds: Medications Discontinued Medications Generic Name Dose Route Start Last Admin Trade Name Freq PRN Reason Stop Dose Admin Morphine Sulfate 2 mg 03/26/19 23:42 03/26/19 23:52 Morphine IVPUSH 03/26/19 23:43 2 mg ONETIME ONE Administration Ondansetron HCl 4 mg 03/26/19 23:42 03/26/19 23:52 Zofran IV 03/26/19 23:43 4 mg ONETIME ONE Administration - Re-Assessments/Exams Free Text/Narrative Re-Assessment/Exam: 03/27/19 00:42 results discussed with pt who is feeling fine presently, states was Tx with tramadol for her GB issues but ran out awhile ago. Departure - Departure Time of Disposition: 00:43 Disposition: Home, Self-Care 01 Condition: Good Clinical Impression: Cirrhosis Qualifiers: Hepatic cirrhosis type: alcoholic cirrhosis Ascites presence: with ascites Qualified Code(s): K70.31 - Alcoholic cirrhosis of liver with ascites Abdominal pain Qualifiers: Abdominal location: epigastric Qualified Code(s): R10.13 - Epigastric pain - Discharge Information Forms: ED Department Discharge Additional Instructions: 1) continue home meds 2) avoid fatty fried spicy foods 3) see clinic Friday for repeat "ammonia level" and surgical consult for gall stones rx given; tramadol 50mg bid prn x 6 - My Orders Last 24 Hours: My Active Orders 03/26/19 23:43 AMYLASE [CHEM] Stat B-TYPE NATRIURETIC PEPTIDE,BNP [CHEM] Stat CBC WITH AUTO DIFF [HEME] Stat COMPREHENSIVE METABOLIC PN,CMP [CHEM] Stat LIPASE [CHEM] Stat MANUAL DIFFERENTIAL QA/NC [HEME] Stat - Assessment/Plan Last 24 Hours: My Active Orders 03/26/19 23:43 AMYLASE [CHEM] Stat B-TYPE NATRIURETIC PEPTIDE,BNP [CHEM] Stat CBC WITH AUTO DIFF [HEME] Stat COMPREHENSIVE METABOLIC PN,CMP [CHEM] Stat LIPASE [CHEM] Stat MANUAL DIFFERENTIAL QA/NC [HEME] Stat
[2019-03-27 00:02] VITALS: BP 108/43; PULSE 80
[2019-03-27 00:11] LABS: ANION GAP 8.1; CHLORIDE,CL 110 mmol/L (101-111); SODIUM,NA 136 mmol/L (135-145)
== END 2019-03-27 00:50 | disposition home or self-care (01) ==
LOC: DL.ED 23:33
DX: K70.31 Alcoholic cirrhosis of liver with ascites (principal); K21.9 Gastro-esophageal reflux disease without esophagitis; Z88.6 Allergy status to analgesic agent; Z91.048 Other nonmedicinal substance allergy status; Z88.8 Allergy status to other drugs, medicaments and biological substances; Z79.899 Other long term (current) drug therapy
CPT/HCPCS: 36415; 80053; 82140; 82150; 83605; 83690; 83880; 85025; 96374; 96375; 99284; J2270; J2405

== ENCOUNTER 2019-04-12 21:37 | Emergency (ER) | payer BC ==
--- NOTE | 2019-04-12 22:05 | EDM.PDOC ---
ED HPI GENERAL MEDICAL PROBLEM - General Chief Complaint: Abdominal Pain Stated Complaint: STOMACH/BACK PAIN Time Seen by Provider: 04/12/19 21:58 Source of Information: Reports: Patient History Limitations: Reports: No Limitations - History of Present Illness INITIAL COMMENTS - FREE TEXT/NARRATIVE: This 44 yo female patient reports to the ED with diffuse lower abdominal pain that started this evening at 1999. The patient reports she has had similar pains in the past and is supposed to have a surgical consult on May 03 for gallstones. The patient reports she has not taken anything at this time for temporary symptom relief. Onset: Today Onset Date: 04/12/19 Onset Time: 20:00 Duration: Constant Location: Reports: Abdomen Quality: Reports: Ache, Sharp Severity: Severe Improves with: Reports: None Worsens with: Reports: None Context: Reports: Other Associated Symptoms: Reports: No Other Symptoms Left Lower Abdominal Pain Score (Numeric/FACES): 8 - Related Data Allergies Allergy/AdvReac Type Severity Reaction Status Date / Time acetaminophen Allergy Hives Verified 04/12/19 21:44 [From Comtrex Cold-Cough] dextromethorphan Allergy Hives Verified 04/12/19 21:44 [From Comtrex Cold-Cough] phenylephrine Allergy Hives Verified 04/12/19 21:44 [From Comtrex Cold-Cough] wool Allergy itchy Uncoded 04/12/19 21:44 Home Meds: Home Meds Ferrous Sulfate [Iron] 325 mg PO BID 05/09/18 [History] Pantoprazole Sodium 40 mg PO DAILY 05/09/18 [History] Folic Acid 1 mg PO DAILY 10/12/18 [History] Furosemide 20 mg PO DAILY 01/04/19 [History] Lactulose [Cephulac] 20 gm PO TID 30 Days #90 cup 01/06/19 [Rx] Spironolactone 25 mg PO DAILY 30 Days #30 tablet 01/06/19 [Rx] Ondansetron [Zofran ODT] 4 mg PO Q6H PRN 03/27/19 [History] Rifaximin [Xifaxan] 550 mg PO BID 03/27/19 [History] Ursodiol 300 mg PO BID 03/27/19 [History] Past Medical History - Past Health History Medical/Surgical History: Denies Medical/Surgical History HEENT History: Reports: Epistaxis, Impaired Vision Cardiovascular History: Reports: None Respiratory History: Reports: None Gastrointestinal History: Reports: Cholelithiasis, Cirrhosis, GERD, GI Bleed Other Gastrointestinal History: liver cirrhosis, gallbladder polyps Genitourinary History: Reports: None 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 martínez fx. Neurological History: Reports: None Psychiatric History: Reports: Addiction Endocrine/Metabolic History: Reports: None Hematologic History: Reports: Anemia, Iron Deficiency Immunologic History: Reports: None Oncologic (Cancer) History: Reports: None Dermatologic History: Reports: None - Infectious Disease History Infectious Disease History: Reports: None - Past Surgical History GI Surgical History: Reports: None Other Female Surgeries/Procedures: heavy menstrual flow at this time Social & Family History - Family History Family Medical History: Noncontributory Cardiac: Reports: [place] Endocrine/Metabolic: Reports: Diabetes, type II - Tobacco Use Smoking Status *Q: Current Some Day Smoker Years of Tobacco use: 20 Packs/Tins Daily: 0.1 Second Hand Smoke Exposure: Yes - Caffeine Use Caffeine Use: Reports: Coffee - Recreational Drug Use Recreational Drug Use: No - Living Situation & Occupation Living situation: Reports: with Family Occupation: Unemployed ED ROS GENERAL - Review of Systems Review Of Systems: ROS reveals no pertinent complaints other than HPI. ED EXAM, GI/ABD - Physical Exam Exam: See Below Exam Limited By: No Limitations General Appearance: Alert, WD/WN, No Apparent Distress Eyes: Bilateral: Normal Appearance, EOMI Ears: Normal External Exam, Normal Canal, Hearing Grossly Normal, Normal TMs Nose: Normal Inspection, Normal Mucosa, No Blood Throat/Mouth: Normal Inspection, Normal Lips, Normal Teeth, Normal Gums, Normal Oropharynx, Normal Voice, No Airway Compromise Head: Atraumatic, Normocephalic Neck: Normal Inspection, Supple, Non-Tender, Full Range of Motion Respiratory/Chest: No Respiratory Distress, Lungs Clear, Normal Breath Sounds, No Accessory Muscle Use, Chest Non-Tender Cardiovascular: Normal Peripheral Pulses, Regular Rate, Rhythm, No Edema, No Gallop, No JVD, No Murmur, No Rub GI/Abdominal Exam: Other (Female) Exam: Deferred Rectal (Female) Exam: Deferred Back Exam: Normal Inspection, Full Range of Motion, NT Extremities: Normal Inspection, Normal Range of Motion, Non-Tender, Normal Capillary Refill, No Pedal Edema Neurological: Alert, Oriented, CN II-XII Intact, Normal Cognition, Normal Gait, Normal Reflexes, No Motor/Sensory Deficits Psychiatric: Normal Affect, Normal Mood Skin Exam: Warm, Dry, Intact, Normal Color, No Rash Lymphatic: No Adenopathy Course - Vital Signs Last Recorded V/S: Last Vital Signs Temp 36.5 C 04/12/19 21:40 Pulse 72 04/12/19 22:39 Resp 18 04/12/19 21:40 BP 107/63 04/12/19 21:40 Pulse Ox 100 04/12/19 22:39 - Orders/Labs/Meds Orders: Active Orders 24 hr Category Date Time Status CBC WITH AUTO DIFF [HEME] Urgent Lab 04/12/19 22:28 Results MANUAL DIFFERENTIAL QA/NC [HEME] Urgent Lab 04/12/19 22:28 Results Sodium Chloride 0.9% [Normal Saline] 1,000 ml Med 04/12/19 22:02 Active IV .BOLUS traMADol [Ultram] Med 04/12/19 23:00 Once 50 mg PO ONETIME ONE Medication Orders Sodium Chloride (Normal Saline) 1,000 mls @ 999 mls/hr IV .BOLUS ONE Stop: 04/12/19 23:02 Last Admin: 04/12/19 22:33 Dose: 999 mls/hr Labs: Laboratory Tests 04/12/19 04/12/19 04/12/19 Range/Units 21:52 21:52 22:28 WBC (5.0-10.0) 10^3/uL RBC (4.2-5.4) 10^6/uL Hgb (12.0-16.0) g/dL Hct (37.0-47.0) % MCV (80-100) fL MCH (27.0-34.0) pg MCHC (33.0-35.0) g/dL Plt Count (150-450) 10^3/uL Neut % (Auto) (42.2-75.2) % Lymph % (Auto) (20.5-50.1) % [place] % (Auto) (2-8) % Eos % (Auto) (1.0-3.0) % Baso % (Auto) (0.0-1.0) % Add Manual Diff Sodium (135-145) mmol/L Potassium (3.6-5.0) mmol/L Chloride (101-111) mmol/L Carbon Dioxide (21.0-31.0) mmol/L Anion Gap BUN (7-18) mg/dL Creatinine (0.6-1.3) mg/dL Est Cr Clr Drug Dosing mL/min Estimated GFR (MDRD) BUN/Creatinine Ratio Glucose (74-105) mg/dL Calcium (8.4-10.2) mg/dl Total Bilirubin (0.2-1.0) mg/dL AST (10-42) IU/L ALT (10-60) IU/L Alkaline Phosphatase (42-121) IU/L Ammonia (11-35) umol/L Total Protein (6.7-8.2) g/dl Albumin (3.2-5.5) g/dl Globulin Albumin/Globulin Ratio Amylase 77 (28-100) U/L Lipase 46 (22-51) U/L Urine Color Yellow (YELLOW) Urine Appearance Clear (CLEAR) Urine pH 6.0 (5.0-9.0) Ur Specific [place] 1.025 (1.005-1.030) Urine Protein Negative (NEGATIVE) Urine Glucose (UA) Negative (NEGATIVE) Urine Ketones Negative (NEGATIVE) Urine Occult Blood Negative (NEGATIVE) Urine Nitrite Negative (NEGATIVE) Urine Bilirubin Negative (NEGATIVE) Urine Urobilinogen 1.0 (0.2-1.0) mg/dL Ur Leukocyte Esterase Negative (NEGATIVE) Urine Opiates Screen Negative (NEGATIVE) Ur Oxycodone Screen Negative (NEGATIVE) Urine Methadone Screen Negative (NEGATIVE) Ur Barbiturates Screen Negative (NEGATIVE) U Tricyclic Antidepress Negative (NEGATIVE) Ur Phencyclidine Scrn Negative (NEGATIVE) Ur Amphetamine Screen Negative (NEGATIVE) U Methamphetamines Scrn Negative (NEGATIVE) Urine MDMA Screen Negative (NEGATIVE) U Benzodiazepines Scrn Negative (NEGATIVE) Urine Cocaine Screen Negative (NEGATIVE) U Marijuana (THC) Screen Negative (NEGATIVE) 04/12/19 04/12/19 04/12/19 Range/Units 22:28 22:28 22:28 WBC 4.8 L (5.0-10.0) 10^3/uL RBC 2.75 L (4.2-5.4) 10^6/uL Hgb 8.7 L (12.0-16.0) g/dL Hct 25.7 L (37.0-47.0) % MCV 93.5 (80-100) fL MCH 31.6 (27.0-34.0) pg MCHC 33.9 (33.0-35.0) g/dL Plt Count 85 L (150-450) 10^3/uL Neut % (Auto) 51.9 (42.2-75.2) % Lymph % (Auto) 22.3 (20.5-50.1) % [place] % (Auto) 6.9 (2-8) % Eos % (Auto) 16.0 H (1.0-3.0) % Baso % (Auto) 2.9 H (0.0-1.0) % Add Manual Diff Yes Sodium 137 (135-145) mmol/L Potassium 3.7 (3.6-5.0) mmol/L Chloride 109 (101-111) mmol/L Carbon Dioxide 22.0 (21.0-31.0) mmol/L Anion Gap 9.7 BUN 13 (7-18) mg/dL Creatinine 0.8 (0.6-1.3) mg/dL Est Cr Clr Drug Dosing 65.13 mL/min Estimated GFR (MDRD) > 60 BUN/Creatinine Ratio 16.25 Glucose 107 H (74-105) mg/dL Calcium 8.2 L (8.4-10.2) mg/dl Total Bilirubin 1.1 H (0.2-1.0) mg/dL AST 35 (10-42) IU/L ALT 23 (10-60) IU/L Alkaline Phosphatase 64 (42-121) IU/L Ammonia 50 H (11-35) umol/L Total Protein 6.5 L (6.7-8.2) g/dl Albumin 2.8 L (3.2-5.5) g/dl Globulin 3.7 Albumin/Globulin Ratio 0.76 Amylase (28-100) U/L Lipase (22-51) U/L Urine Color (YELLOW) Urine Appearance (CLEAR) Urine pH (5.0-9.0) Ur Specific [place] (1.005-1.030) Urine Protein (NEGATIVE) Urine Glucose (UA) (NEGATIVE) Urine Ketones (NEGATIVE) Urine Occult Blood (NEGATIVE) Urine Nitrite (NEGATIVE) Urine Bilirubin (NEGATIVE) Urine Urobilinogen (0.2-1.0) mg/dL Ur Leukocyte Esterase (NEGATIVE) Urine Opiates Screen (NEGATIVE) Ur Oxycodone Screen (NEGATIVE) Urine Methadone Screen (NEGATIVE) Ur Barbiturates Screen (NEGATIVE) U Tricyclic Antidepress (NEGATIVE) Ur Phencyclidine Scrn (NEGATIVE) Ur Amphetamine Screen (NEGATIVE) U Methamphetamines Scrn (NEGATIVE) Urine MDMA Screen (NEGATIVE) U Benzodiazepines Scrn (NEGATIVE) Urine Cocaine Screen (NEGATIVE) U Marijuana (THC) Screen (NEGATIVE) Meds: Medications Generic Name Dose Route Start Last Admin Trade Name Freq PRN Reason Stop Dose Admin Sodium Chloride 1,000 mls @ 999 mls/hr 04/12/19 22:02 04/12/19 22:33 Normal Saline IV 04/12/19 23:02 999 mls/hr .BOLUS ONE Administration Discontinued Medications Generic Name Dose Route Start Last Admin Trade Name Freq PRN Reason Stop Dose Admin Morphine Sulfate 2 mg 04/12/19 22:03 04/12/19 22:33 Morphine IVPUSH 04/12/19 22:04 2 mg ONETIME ONE Administration Departure - Departure Time of Disposition: 23:00 Disposition: Home, Self-Care 01 Condition: Fair Clinical Impression: Chronic generalized abdominal pain - Discharge Information *PRESCRIPTION DRUG MONITORING PROGRAM REVIEWED*: Not Applicable *COPY OF PRESCRIPTION DRUG MONITORING REPORT IN PATIENT TIKI: Not Applicable Instructions: Abdominal Pain, Adult Forms: ED Department Discharge Care Plan Goals: The patient was advised of the examination and lab results during the visit. The patient was given IV fluids, IV Morphine and an oral dose of Tramadol for her abdominal pain. The patient was encouraged to follow-up with her primary care facility for continued evaluation and treatment. If the patient has any additional symptoms or concerns, the patient should either visit her primary care facility or return to the emergency department. - My Orders Last 24 Hours: My Active Orders 04/12/19 22:02 Sodium Chloride 0.9% [Normal Saline] 1,000 ml IV .BOLUS 04/12/19 22:28 CBC WITH AUTO DIFF [HEME] Urgent MANUAL DIFFERENTIAL QA/NC [HEME] Urgent 04/12/19 23:00 traMADol [Ultram] 50 mg PO ONETIME ONE - Assessment/Plan Last 24 Hours: My Active Orders 04/12/19 22:02 Sodium Chloride 0.9% [Normal Saline] 1,000 ml IV .BOLUS 04/12/19 22:28 CBC WITH AUTO DIFF [HEME] Urgent MANUAL DIFFERENTIAL QA/NC [HEME] Urgent 04/12/19 23:00 traMADol [Ultram] 50 mg PO ONETIME ONE
[2019-04-12] MEDS: Sodium Chloride 0.9% 1,000 ML IV ONE (22:33)
[2019-04-12] MEDS: Morphine 2 MG/ML Syringe IVPUSH ONE (22:33)
[2019-04-12 22:55] LABS: ANION GAP 9.7; CHLORIDE,CL 109 mmol/L (101-111); SODIUM,NA 137 mmol/L (135-145)
[2019-04-12] MEDS: traMADol 50 MG Tab PO ONE (23:08)
[2019-04-12 23:12] VITALS: BP 106/63; PULSE 88
== END 2019-04-12 23:12 | disposition home or self-care (01) ==
LOC: DL.ED 21:37
DX: R10.84 Generalized abdominal pain (principal); G89.29 Other chronic pain; K21.9 Gastro-esophageal reflux disease without esophagitis; D50.9 Iron deficiency anemia, unspecified; F17.210 Nicotine dependence, cigarettes, uncomplicated; Z88.6 Allergy status to analgesic agent; Z88.8 Allergy status to other drugs, medicaments and biological substances; Z91.09 Other allergy status, other than to drugs and biological substances; Z79.899 Other long term (current) drug therapy
CPT/HCPCS: 36415; 80053; 80305; 81003; 82140; 82150; 83690; 85025; 96361; 96374; 99284; A9270; J2270; J7030

== ENCOUNTER 2019-05-22 19:31 | Emergency (ER) | payer BC ==
[2019-05-22 19:44] VITALS: BP 112/69; PULSE 78
[2019-05-22] MEDS ORDERED: Ketorolac 30 MG/ML SDV IVPUSH ONE (19:56)
--- NOTE | 2019-05-22 20:03 | EDM.PDOC ---
ED HPI GENERAL MEDICAL PROBLEM - General Chief Complaint: Abdominal Pain Stated Complaint: ABDOMINAL PAIN Time Seen by Provider: 05/22/19 20:01 Source of Information: Reports: Patient History Limitations: Reports: No Limitations - History of Present Illness INITIAL COMMENTS - FREE TEXT/NARRATIVE: long h/o abd pain with h/o GB stones. did see surgeon and is pending more results. only ate bisquits & gravy today. PMX alcoholic cirrhosis with ascites. 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 Abdominal Pain Score (Numeric/FACES): 9 - Related Data Allergies Allergy/AdvReac Type Severity Reaction Status Date / Time acetaminophen Allergy Hives Verified 04/12/19 21:44 [From Comtrex Cold-Cough] dextromethorphan Allergy Hives Verified 05/22/19 19:36 [From Comtrex Cold-Cough] phenylephrine Allergy Hives Verified 05/22/19 19:36 [From Comtrex Cold-Cough] wool Allergy itchy Uncoded 05/22/19 19:36 Home Meds: Home Meds Ferrous Sulfate [Iron] 325 mg PO BID 05/09/18 [History] Pantoprazole Sodium 40 mg PO DAILY 05/09/18 [History] Folic Acid 1 mg PO DAILY 10/12/18 [History] Furosemide 20 mg PO DAILY 01/04/19 [History] Lactulose [Cephulac] 20 gm PO TID 30 Days #90 cup 01/06/19 [Rx] Spironolactone 25 mg PO DAILY 30 Days #30 tablet 01/06/19 [Rx] Ondansetron [Zofran ODT] 4 mg PO Q6H PRN 03/27/19 [History] Rifaximin [Xifaxan] 550 mg PO BID 03/27/19 [History] Ursodiol 300 mg PO BID 03/27/19 [History] Past Medical History - Past Health History Medical/Surgical History: Denies Medical/Surgical History HEENT History: Reports: Epistaxis, Impaired Vision Cardiovascular History: Reports: None Respiratory History: Reports: None Gastrointestinal History: Reports: Cholelithiasis, Cirrhosis, GERD, GI Bleed Other Gastrointestinal History: liver cirrhosis, gallbladder polyps Genitourinary History: Reports: None SHOE FOLDER History: Reports: Other SHOE FOLDER History: 05/09/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 martínez fx. Neurological History: Reports: None Psychiatric History: Reports: Addiction Endocrine/Metabolic History: Reports: None Hematologic History: Reports: Anemia, Iron Deficiency Immunologic History: Reports: None Oncologic (Cancer) History: Reports: None Dermatologic History: Reports: None - Infectious Disease History Infectious Disease History: Reports: None - Past Surgical History GI Surgical History: Reports: None Social & Family History - Family History Family Medical History: Noncontributory Cardiac: Reports: [place] Endocrine/Metabolic: Reports: Diabetes, type II - Tobacco Use Smoking Status *Q: Never Smoker Second Hand Smoke Exposure: No - Caffeine Use Caffeine Use: Reports: Coffee - Recreational Drug Use Recreational Drug Use: No - Living Situation & Occupation Living situation: Reports: with Family Occupation: Unemployed ED ROS GENERAL - Review of Systems Review Of Systems: Comprehensive ROS is negative, except as noted in HPI. ED EXAM, GI/ABD - Physical Exam Exam: See Below Exam Limited By: No Limitations General Appearance: Alert, WD/WN, Mild Distress, Other (discomfort). No: Active Emesis Ears: Hearing Grossly Normal Throat/Mouth: Normal Voice, No Airway Compromise Head: Atraumatic Neck: Non-Tender, Full Range of Motion Respiratory/Chest: No Respiratory Distress Cardiovascular: Regular Rate, Rhythm GI/Abdominal Exam: Soft, Tender, Other (epiG RUQ region). No: Distended, Guarding, Rigid, Rebound Neurological: Alert, Oriented, Normal Cognition, Normal Gait, No Motor/Sensory Deficits Psychiatric: Flat Affect Skin Exam: Warm, Dry, Normal Color Lymphatic: No Adenopathy Course - Vital Signs Last Recorded V/S: Last Vital Signs Temp 37.7 C 05/22/19 19:36 Pulse 78 05/22/19 19:36 Resp 16 05/22/19 19:36 BP 112/69 05/22/19 19:36 Pulse Ox 100 05/22/19 19:36 - Orders/Labs/Meds Labs: Laboratory Tests 05/22/19 05/22/19 05/22/19 Range/Units 19:44 19:44 19:53 WBC 8.0 (5.0-10.0) 10^3/uL RBC 3.20 L (4.2-5.4) 10^6/uL Hgb 10.4 L D (12.0-16.0) g/dL Hct 29.3 L (37.0-47.0) % MCV 91.6 (80-100) fL MCH 32.5 (27.0-34.0) pg MCHC 35.5 H (33.0-35.0) g/dL Plt Count 97 L (150-450) 10^3/uL Neut % (Auto) 77.8 H (42.2-75.2) % Lymph % (Auto) 7.5 L (20.5-50.1) % [place] % (Auto) 8.3 H (2-8) % Eos % (Auto) 5.6 H (1.0-3.0) % Baso % (Auto) 0.8 (0.0-1.0) % Sodium (135-145) mmol/L Potassium (3.6-5.0) mmol/L Chloride (101-111) mmol/L Carbon Dioxide (21.0-31.0) mmol/L Anion Gap BUN (7-18) mg/dL Creatinine (0.6-1.3) mg/dL Est Cr Clr Drug Dosing mL/min Estimated GFR (MDRD) BUN/Creatinine Ratio Glucose (74-105) mg/dL Lactic Acid (0.5-2.2) mmol/L Calcium (8.4-10.2) mg/dl Total Bilirubin (0.2-1.0) mg/dL AST (10-42) IU/L ALT (10-60) IU/L Alkaline Phosphatase (42-121) IU/L Ammonia (11-35) umol/L Total Protein (6.7-8.2) g/dl Albumin (3.2-5.5) g/dl Globulin Albumin/Globulin Ratio Amylase (28-100) U/L Lipase (22-51) U/L Urine Color Yellow (YELLOW) Urine Appearance Clear (CLEAR) Urine pH 7.5 (5.0-9.0) Ur Specific [place] 1.020 (1.005-1.030) Urine Protein Negative (NEGATIVE) Urine Glucose (UA) Negative (NEGATIVE) Urine Ketones Trace H (NEGATIVE) Urine Occult Blood Negative (NEGATIVE) Urine Nitrite Negative (NEGATIVE) Urine Bilirubin Negative (NEGATIVE) Urine Urobilinogen >=8.0 H (0.2-1.0) mg/dL Ur Leukocyte Esterase Negative (NEGATIVE) Urine Opiates Screen Negative (NEGATIVE) Ur Oxycodone Screen Negative (NEGATIVE) Urine Methadone Screen Negative (NEGATIVE) Ur Barbiturates Screen Negative (NEGATIVE) U Tricyclic Antidepress Negative (NEGATIVE) Ur Phencyclidine Scrn Negative (NEGATIVE) Ur Amphetamine Screen Negative (NEGATIVE) U Methamphetamines Scrn Negative (NEGATIVE) Urine MDMA Screen Negative (NEGATIVE) U Benzodiazepines Scrn Negative (NEGATIVE) Urine Cocaine Screen Negative (NEGATIVE) U Marijuana (THC) Screen Negative (NEGATIVE) 05/22/19 05/22/19 05/22/19 Range/Units 19:53 19:53 19:53 WBC (5.0-10.0) 10^3/uL RBC (4.2-5.4) 10^6/uL Hgb (12.0-16.0) g/dL Hct (37.0-47.0) % MCV (80-100) fL MCH (27.0-34.0) pg MCHC (33.0-35.0) g/dL Plt Count (150-450) 10^3/uL Neut % (Auto) (42.2-75.2) % Lymph % (Auto) (20.5-50.1) % [place] % (Auto) (2-8) % Eos % (Auto) (1.0-3.0) % Baso % (Auto) (0.0-1.0) % Sodium 136 (135-145) mmol/L Potassium 4.1 (3.6-5.0) mmol/L Chloride 110 (101-111) mmol/L Carbon Dioxide 19.0 L (21.0-31.0) mmol/L Anion Gap 11.1 BUN 17 (7-18) mg/dL Creatinine 0.7 (0.6-1.3) mg/dL Est Cr Clr Drug Dosing 93.25 mL/min Estimated GFR (MDRD) > 60 BUN/Creatinine Ratio 24.28 Glucose 94 (74-105) mg/dL Lactic Acid 1.2 (0.5-2.2) mmol/L Calcium 8.3 L (8.4-10.2) mg/dl Total Bilirubin 2.1 H (0.2-1.0) mg/dL AST 27 (10-42) IU/L ALT 19 (10-60) IU/L Alkaline Phosphatase 63 (42-121) IU/L Ammonia 116 H (11-35) umol/L Total Protein 7.4 (6.7-8.2) g/dl Albumin 3.5 (3.2-5.5) g/dl Globulin 3.9 Albumin/Globulin Ratio 0.90 Amylase 68 (28-100) U/L Lipase 35 (22-51) U/L Urine Color (YELLOW) Urine Appearance (CLEAR) Urine pH (5.0-9.0) Ur Specific [place] (1.005-1.030) Urine Protein (NEGATIVE) Urine Glucose (UA) (NEGATIVE) Urine Ketones (NEGATIVE) Urine Occult Blood (NEGATIVE) Urine Nitrite (NEGATIVE) Urine Bilirubin (NEGATIVE) Urine Urobilinogen (0.2-1.0) mg/dL Ur Leukocyte Esterase (NEGATIVE) Urine Opiates Screen (NEGATIVE) Ur Oxycodone Screen (NEGATIVE) Urine Methadone Screen (NEGATIVE) Ur Barbiturates Screen (NEGATIVE) U Tricyclic Antidepress (NEGATIVE) Ur Phencyclidine Scrn (NEGATIVE) Ur Amphetamine Screen (NEGATIVE) U Methamphetamines Scrn (NEGATIVE) Urine MDMA Screen (NEGATIVE) U Benzodiazepines Scrn (NEGATIVE) Urine Cocaine Screen (NEGATIVE) U Marijuana (THC) Screen (NEGATIVE) Meds: Medications Discontinued Medications Generic Name Dose Route Start Last Admin Trade Name Freq PRN Reason Stop Dose Admin Ketorolac Tromethamine 30 mg 05/22/19 19:56 05/22/19 20:04 Toradol IVPUSH 05/22/19 19:57 30 mg ONETIME ONE Administration - Re-Assessments/Exams Free Text/Narrative Re-Assessment/Exam: 05/22/19 20:31 results discussed with pt. Departure - Departure Time of Disposition: 20:32 Disposition: Home, Self-Care 01 Condition: Good Clinical Impression: Alcoholic cirrhosis of liver without ascites Abdominal pain Qualifiers: Abdominal location: epigastric Qualified Code(s): R10.13 - Epigastric pain - Discharge Information Instructions: Abdominal Pain, Adult, [id number] Forms: ED Department Discharge Additional Instructions: 1) avoid fatty oily spicy foods 2) follow up at clinic Sepsis Event Note - Evaluation Sepsis Screening Result: No Definite Risk - Focused Exam Vital Signs: Vital Signs Temp Pulse Resp BP Pulse Ox 05/22/19 19:36 37.7 C 78 16 112/69 100 Date Exam was Performed: 05/22/19 Time Exam was Performed: 20:31
[2019-05-22 20:21] LABS: ANION GAP 11.1; CHLORIDE,CL 110 mmol/L (101-111); SODIUM,NA 136 mmol/L (135-145)
[2019-05-22] MEDS ORDERED: traMADol 50 MG Tab PO ONE (20:31)
[2019-05-22] MEDS ORDERED: Lactulose Soln 10 GM/15 ML 30 ML UD Cup PO ONE (20:31)
== END 2019-05-22 20:41 | disposition home or self-care (01) ==
LOC: DL.ED 19:31
DX: K70.30 Alcoholic cirrhosis of liver without ascites (principal); Z88.8 Allergy status to other drugs, medicaments and biological substances; Z88.1 Allergy status to other antibiotic agents; Z91.048 Other nonmedicinal substance allergy status; Z79.899 Other long term (current) drug therapy
CPT/HCPCS: 36415; 80053; 80305; 81003; 82140; 82150; 83605; 83690; 85025; 96374; 99284; A9270; J1885

== ENCOUNTER 2019-06-07 22:49 | Emergency (ER) | payer BC ==
[2019-06-07 22:59] VITALS: BP 103/57; PULSE 69
--- NOTE | 2019-06-07 23:24 | EDM.PDOC ---
ED HPI GENERAL MEDICAL PROBLEM - General Chief Complaint: Abdominal Pain Stated Complaint: ABDOMINAL PAIN Time Seen by Provider: 06/07/19 23:10 Source of Information: Reports: Patient History Limitations: Reports: No Limitations - History of Present Illness INITIAL COMMENTS - FREE TEXT/NARRATIVE: This 44 yo female patient reports to the ED with diffuse abdominal pain. The patient reports her pain started today at 1400 and has been getting worse. The patient reports she was seen by Dr. Roach on 05/23/19 and they were waiting for a score to come back before further treatment. The patient reports she has eaten some fruit and drank fluids today. The patient denies any nausea/vomiting or diarrhea. The patient reports she has taken Tylenol, but has not had any symptom relief. Onset: Today Onset Date: 06/07/19 Onset Time: 14:00 Duration: Constant, Getting Worse Location: Reports: Abdomen (diffuse) Quality: Reports: Ache Severity: Moderate Improves with: Reports: None Worsens with: Reports: None Context: Reports: Other Associated Symptoms: Reports: No Other Symptoms Treatments REGISTERED REPRESENTATIVE: Reports: Acetaminophen Right Upper Abdomen Pain Score (Numeric/FACES): 9 - Related Data Allergies Allergy/AdvReac Type Severity Reaction Status Date / Time acetaminophen Allergy Hives Verified 06/07/19 22:59 [From Comtrex Cold-Cough] dextromethorphan Allergy Hives Verified 06/07/19 22:59 [From Comtrex Cold-Cough] phenylephrine Allergy Hives Verified 06/07/19 22:59 [From Comtrex Cold-Cough] wool Allergy itchy Uncoded 06/07/19 22:59 Home Meds: Home Meds Ferrous Sulfate [Iron] 325 mg PO BID 05/09/18 [History] Pantoprazole Sodium 40 mg PO DAILY 05/09/18 [History] Folic Acid 1 mg PO DAILY 10/12/18 [History] Furosemide 20 mg PO DAILY 01/04/19 [History] Lactulose [Cephulac] 20 gm PO TID 30 Days #90 cup 01/06/19 [Rx] Spironolactone 25 mg PO DAILY 30 Days #30 tablet 01/06/19 [Rx] Ondansetron [Zofran ODT] 4 mg PO Q6H PRN 03/27/19 [History] Rifaximin [Xifaxan] 550 mg PO BID 03/27/19 [History] Ursodiol 300 mg PO BID 03/27/19 [History] Past Medical History - Past Health History Medical/Surgical History: Denies Medical/Surgical History HEENT History: Reports: Epistaxis, Impaired Vision Cardiovascular History: Reports: None Respiratory History: Reports: None Gastrointestinal History: Reports: Cholelithiasis, Cirrhosis, GERD, GI Bleed Other Gastrointestinal History: liver cirrhosis, gallbladder polyps Genitourinary History: Reports: None FLIGHT STEWARD History: Reports: Other FLIGHT STEWARD History: 05/09/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 martínez fx. Neurological History: Reports: None Psychiatric History: Reports: Addiction Endocrine/Metabolic History: Reports: None Hematologic History: Reports: Anemia, Iron Deficiency Immunologic History: Reports: None Oncologic (Cancer) History: Reports: None Dermatologic History: Reports: None - Infectious Disease History Infectious Disease History: Reports: None - Past Surgical History GI Surgical History: Reports: None Social & Family History - Family History Family Medical History: Noncontributory Cardiac: Reports: [place] Endocrine/Metabolic: Reports: Diabetes, type II - Tobacco Use Smoking Status *Q: Never Smoker Second Hand Smoke Exposure: No - Caffeine Use Caffeine Use: Reports: Coffee - Recreational Drug Use Recreational Drug Use: No - Living Situation & Occupation Living situation: Reports: with Family Occupation: Unemployed ED ROS GENERAL - Review of Systems Review Of Systems: Comprehensive ROS is negative, except as noted in HPI. ED EXAM, GI/ABD - Physical Exam Exam: See Below Exam Limited By: No Limitations General Appearance: Alert, WD/WN, Moderate Distress Eyes: Bilateral: Normal Appearance, EOMI Ears: Normal External Exam, Normal Canal, Hearing Grossly Normal, Normal TMs Nose: Normal Inspection, Normal Mucosa, No Blood Throat/Mouth: Normal Inspection, Normal Lips, Normal Teeth, Normal Gums, Normal Oropharynx, Normal Voice, No Airway Compromise Head: Atraumatic, Normocephalic Neck: Normal Inspection, Supple, Non-Tender, Full Range of Motion Respiratory/Chest: No Respiratory Distress, Lungs Clear, Normal Breath Sounds, No Accessory Muscle Use, Chest Non-Tender Cardiovascular: Normal Peripheral Pulses GI/Abdominal Exam: Normal Bowel Sounds, Soft, No Organomegaly, No Distention, No Abnormal Bruit, No Mass, Pelvis Stable, Tender (diffuse tenderness) (Female) Exam: Deferred Rectal (Female) Exam: Deferred Back Exam: Normal Inspection, Full Range of Motion, NT Extremities: Normal Inspection, Normal Range of Motion, Non-Tender, Normal Capillary Refill, No Pedal Edema Neurological: Alert, Oriented, CN II-XII Intact, Normal Cognition, Normal Gait, Normal Reflexes, No Motor/Sensory Deficits Psychiatric: Normal Affect, Normal Mood Skin Exam: Warm, Dry, Intact, Normal Color, No Rash Lymphatic: No Adenopathy Course - Vital Signs Last Recorded V/S: Last Vital Signs Temp 36.8 C 06/07/19 22:57 Pulse 69 06/07/19 22:57 Resp 18 06/07/19 22:57 BP 103/57 L 06/07/19 22:57 Pulse Ox 100 06/07/19 22:57 - Orders/Labs/Meds Orders: Active Orders 24 hr Category Date Time Status CULTURE BLOOD [BC] Stat Lab 06/07/19 23:14 Ordered Labs: Laboratory Tests 06/07/19 06/07/19 06/07/19 Range/Units 23:26 23:26 23:26 WBC (5.0-10.0) 10^3/uL RBC (4.2-5.4) 10^6/uL Hgb (12.0-16.0) g/dL Hct (37.0-47.0) % MCV (80-100) fL MCH (27.0-34.0) pg MCHC (33.0-35.0) g/dL Plt Count (150-450) 10^3/uL Neut % (Auto) (42.2-75.2) % Lymph % (Auto) (20.5-50.1) % [place] % (Auto) (2-8) % Eos % (Auto) (1.0-3.0) % Baso % (Auto) (0.0-1.0) % Sodium (135-145) mmol/L Potassium (3.6-5.0) mmol/L Chloride (101-111) mmol/L Carbon Dioxide (21.0-31.0) mmol/L Anion Gap BUN (7-18) mg/dL Creatinine (0.6-1.3) mg/dL Est Cr Clr Drug Dosing mL/min Estimated GFR (MDRD) BUN/Creatinine Ratio Glucose (74-105) mg/dL Lactic Acid 1.1 (0.5-2.0) mmol/L Calcium (8.4-10.2) mg/dl Total Bilirubin (0.2-1.0) mg/dL AST (10-42) IU/L ALT (10-60) IU/L Alkaline Phosphatase (42-121) IU/L Ammonia 153 H (11-35) umol/L Total Protein (6.7-8.2) g/dl Albumin (3.2-5.5) g/dl Globulin Albumin/Globulin Ratio Amylase 71 (28-100) U/L Lipase 40 (22-51) U/L Urine Color (YELLOW) Urine Appearance (CLEAR) Urine pH (5.0-9.0) Ur Specific [place] (1.005-1.030) Urine Protein (NEGATIVE) Urine Glucose (UA) (NEGATIVE) Urine Ketones (NEGATIVE) Urine Occult Blood (NEGATIVE) Urine Nitrite (NEGATIVE) Urine Bilirubin (NEGATIVE) Urine Urobilinogen (0.2-1.0) mg/dL Ur Leukocyte Esterase (NEGATIVE) Urine Opiates Screen (NEGATIVE) Ur Oxycodone Screen (NEGATIVE) Urine Methadone Screen (NEGATIVE) Ur Barbiturates Screen (NEGATIVE) U Tricyclic Antidepress (NEGATIVE) Ur Phencyclidine Scrn (NEGATIVE) Ur Amphetamine Screen (NEGATIVE) U Methamphetamines Scrn (NEGATIVE) Urine MDMA Screen (NEGATIVE) U Benzodiazepines Scrn (NEGATIVE) Urine Cocaine Screen (NEGATIVE) U Marijuana (THC) Screen (NEGATIVE) Ethyl Alcohol < 5 mg/dL 06/07/19 06/07/19 06/07/19 Range/Units 23:26 23:26 23:29 WBC 4.8 L (5.0-10.0) 10^3/uL RBC 2.88 L (4.2-5.4) 10^6/uL Hgb 9.3 L (12.0-16.0) g/dL Hct 27.0 L (37.0-47.0) % MCV 93.8 (80-100) fL MCH 32.3 (27.0-34.0) pg MCHC 34.4 (33.0-35.0) g/dL Plt Count 116 L (150-450) 10^3/uL Neut % (Auto) 50.5 (42.2-75.2) % Lymph % (Auto) 23.3 (20.5-50.1) % [place] % (Auto) 10.7 H (2-8) % Eos % (Auto) 13.2 H (1.0-3.0) % Baso % (Auto) 2.3 H (0.0-1.0) % Sodium 137 (135-145) mmol/L Potassium 4.3 (3.6-5.0) mmol/L Chloride 109 (101-111) mmol/L Carbon Dioxide 21.0 (21.0-31.0) mmol/L Anion Gap 11.3 BUN 22 H (7-18) mg/dL Creatinine 0.9 (0.6-1.3) mg/dL Est Cr Clr Drug Dosing 72.53 mL/min Estimated GFR (MDRD) > 60 BUN/Creatinine Ratio 24.44 Glucose 93 (74-105) mg/dL Lactic Acid (0.5-2.0) mmol/L Calcium 8.4 (8.4-10.2) mg/dl Total Bilirubin 1.3 H (0.2-1.0) mg/dL AST 26 (10-42) IU/L ALT 23 (10-60) IU/L Alkaline Phosphatase 60 (42-121) IU/L Ammonia (11-35) umol/L Total Protein 7.2 (6.7-8.2) g/dl Albumin 3.3 (3.2-5.5) g/dl Globulin 3.9 Albumin/Globulin Ratio 0.85 Amylase (28-100) U/L Lipase (22-51) U/L Urine Color Yellow (YELLOW) Urine Appearance Slightly cloudy (CLEAR) Urine pH 6.0 (5.0-9.0) Ur Specific [place] >= 1.030 (1.005-1.030) Urine Protein Negative (NEGATIVE) Urine Glucose (UA) Negative (NEGATIVE) Urine Ketones Negative (NEGATIVE) Urine Occult Blood Negative (NEGATIVE) Urine Nitrite Negative (NEGATIVE) Urine Bilirubin Negative (NEGATIVE) Urine Urobilinogen >=8.0 H (0.2-1.0) mg/dL Ur Leukocyte Esterase Negative (NEGATIVE) Urine Opiates Screen (NEGATIVE) Ur Oxycodone Screen (NEGATIVE) Urine Methadone Screen (NEGATIVE) Ur Barbiturates Screen (NEGATIVE) U Tricyclic Antidepress (NEGATIVE) Ur Phencyclidine Scrn (NEGATIVE) Ur Amphetamine Screen (NEGATIVE) U Methamphetamines Scrn (NEGATIVE) Urine MDMA Screen (NEGATIVE) U Benzodiazepines Scrn (NEGATIVE) Urine Cocaine Screen (NEGATIVE) U Marijuana (THC) Screen (NEGATIVE) Ethyl Alcohol mg/dL 06/07/19 Range/Units 23:29 WBC (5.0-10.0) 10^3/uL RBC (4.2-5.4) 10^6/uL Hgb (12.0-16.0) g/dL Hct (37.0-47.0) % MCV (80-100) fL MCH (27.0-34.0) pg MCHC (33.0-35.0) g/dL Plt Count (150-450) 10^3/uL Neut % (Auto) (42.2-75.2) % Lymph % (Auto) (20.5-50.1) % [place] % (Auto) (2-8) % Eos % (Auto) (1.0-3.0) % Baso % (Auto) (0.0-1.0) % Sodium (135-145) mmol/L Potassium (3.6-5.0) mmol/L Chloride (101-111) mmol/L Carbon Dioxide (21.0-31.0) mmol/L Anion Gap BUN (7-18) mg/dL Creatinine (0.6-1.3) mg/dL Est Cr Clr Drug Dosing mL/min Estimated GFR (MDRD) BUN/Creatinine Ratio Glucose (74-105) mg/dL Lactic Acid (0.5-2.0) mmol/L Calcium (8.4-10.2) mg/dl Total Bilirubin (0.2-1.0) mg/dL AST (10-42) IU/L ALT (10-60) IU/L Alkaline Phosphatase (42-121) IU/L Ammonia (11-35) umol/L Total Protein (6.7-8.2) g/dl Albumin (3.2-5.5) g/dl Globulin Albumin/Globulin Ratio Amylase (28-100) U/L Lipase (22-51) U/L Urine Color (YELLOW) Urine Appearance (CLEAR) Urine pH (5.0-9.0) Ur Specific [place] (1.005-1.030) Urine Protein (NEGATIVE) Urine Glucose (UA) (NEGATIVE) Urine Ketones (NEGATIVE) Urine Occult Blood (NEGATIVE) Urine Nitrite (NEGATIVE) Urine Bilirubin (NEGATIVE) Urine Urobilinogen (0.2-1.0) mg/dL Ur Leukocyte Esterase (NEGATIVE) Urine Opiates Screen Negative (NEGATIVE) Ur Oxycodone Screen Negative (NEGATIVE) Urine Methadone Screen Negative (NEGATIVE) Ur Barbiturates Screen Negative (NEGATIVE) U Tricyclic Antidepress Negative (NEGATIVE) Ur Phencyclidine Scrn Negative (NEGATIVE) Ur Amphetamine Screen Negative (NEGATIVE) U Methamphetamines Scrn Negative (NEGATIVE) Urine MDMA Screen Negative (NEGATIVE) U Benzodiazepines Scrn Negative (NEGATIVE) Urine Cocaine Screen Negative (NEGATIVE) U Marijuana (THC) Screen Negative (NEGATIVE) Ethyl Alcohol mg/dL Meds: Medications Discontinued Medications Generic Name Dose Route Start Last Admin Trade Name Freq PRN Reason Stop Dose Admin Ketorolac Tromethamine 30 mg 06/08/19 00:10 06/08/19 00:16 Toradol IVPUSH 06/08/19 00:11 30 mg ONETIME ONE Administration - Re-Assessments/Exams Free Text/Narrative Re-Assessment/Exam: 06/08/19 00:46 The patient reports feeling better after the IV Toradol and requested that she be discharged. Departure - Departure Time of Disposition: 00:47 Disposition: Home, Self-Care 01 Condition: Fair Clinical Impression: Chronic abdominal pain - Discharge Information *PRESCRIPTION DRUG MONITORING PROGRAM REVIEWED*: Not Applicable *COPY OF PRESCRIPTION DRUG MONITORING REPORT IN PATIENT TIKI: Not Applicable Instructions: Abdominal Pain, Adult, [id number] Forms: ED Department Discharge Care Plan Goals: The patient was advised of the examination and lab results during the visit. The patient was encouraged to follow-up with her specialist for continued evaluation and management of her elevated ammonia level. If the patient has any additional symptoms or concerns, the patient should either return to the emergency department or visit her primary care facility. Sepsis Event Note - Evaluation Sepsis Screening Result: No Definite Risk - Focused Exam Vital Signs: Vital Signs Temp Pulse Resp BP Pulse Ox 06/07/19 22:57 36.8 C 69 18 103/57 L 100 Date Exam was Performed: 06/08/19 Time Exam was Performed: 00:46 - My Orders Last 24 Hours: My Active Orders 06/07/19 23:14 CULTURE BLOOD [BC] Stat - Assessment/Plan Last 24 Hours: My Active Orders 06/07/19 23:14 CULTURE BLOOD [BC] Stat
[2019-06-08] LABS: ANION GAP 11.3; CHLORIDE,CL 109 mmol/L (101-111); SODIUM,NA 137 mmol/L (135-145)
[2019-06-08] MEDS ORDERED: Ketorolac 30 MG/ML SDV IVPUSH ONE (00:10)
== END 2019-06-08 00:54 | disposition home or self-care (01) ==
LOC: DL.ED 22:49
DX: R10.84 Generalized abdominal pain (principal); K21.9 Gastro-esophageal reflux disease without esophagitis; D64.9 Anemia, unspecified; Z79.899 Other long term (current) drug therapy; Z88.8 Allergy status to other drugs, medicaments and biological substances
CPT/HCPCS: 36415; 80053; 80305; 80320; 81003; 82140; 82150; 83605; 83690; 85025; 87040; 96374; 99284; J1885; G0480

== ENCOUNTER 2019-08-22 23:22 | Inpatient (IN) | payer BC, OTHER ==
[2019-08-23] MEDS ORDERED: Ketorolac 30 MG/ML SDV IVPUSH ONE (00:16)
--- NOTE | 2019-08-23 00:19 | EDM.PDOC ---
ED HPI GENERAL MEDICAL PROBLEM - General Chief Complaint: Abdominal Pain Stated Complaint: STOMACH AND BACK PAIN Time Seen by Provider: 08/23/19 00:16 Source of Information: Reports: Patient History Limitations: Reports: No Limitations - History of Present Illness INITIAL COMMENTS - FREE TEXT/NARRATIVE: onset recurrent abd pain tonight, did eat some yoghurt earlier didn't help, denies N/V/D. still being eval by surgeon and has appt next week. 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 Upper Abdomen Pain Score (Numeric/FACES): 10 - Related Data Allergies Allergy/AdvReac Type Severity Reaction Status Date / Time acetaminophen Allergy Hives Verified 08/22/19 23:59 [From Comtrex Cold-Cough] dextromethorphan Allergy Hives Verified 08/22/19 23:59 [From Comtrex Cold-Cough] phenylephrine Allergy Hives Verified 08/22/19 23:59 [From Comtrex Cold-Cough] wool Allergy itchy Uncoded 08/22/19 23:59 Home Meds: Home Meds Ferrous Sulfate [Iron] 325 mg PO BID 05/09/18 [History] Pantoprazole Sodium 40 mg PO DAILY 05/09/18 [History] Folic Acid 1 mg PO DAILY 10/12/18 [History] Furosemide 20 mg PO DAILY 01/04/19 [History] Lactulose [Cephulac] 20 gm PO TID 30 Days #90 cup 01/06/19 [Rx] Spironolactone 25 mg PO DAILY 30 Days #30 tablet 01/06/19 [Rx] Ondansetron [Zofran ODT] 4 mg PO Q6H PRN 03/27/19 [History] Rifaximin [Xifaxan] 550 mg PO BID 03/27/19 [History] ursodioL [Ursodiol] 300 mg PO BID 03/27/19 [History] Past Medical History - Past Health History Medical/Surgical History: Denies Medical/Surgical History HEENT History: Reports: Epistaxis, Impaired Vision Cardiovascular History: Reports: None Respiratory History: Reports: None Gastrointestinal History: Reports: Cholelithiasis, Cirrhosis, GERD, GI Bleed Other Gastrointestinal History: liver cirrhosis, gallbladder polyps Genitourinary History: Reports: None 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 martínez fx. Neurological History: Reports: None Psychiatric History: Reports: Addiction Endocrine/Metabolic History: Reports: None Hematologic History: Reports: Anemia, Iron Deficiency Immunologic History: Reports: None Oncologic (Cancer) History: Reports: None Dermatologic History: Reports: None - Infectious Disease History Infectious Disease History: Reports: None - Past Surgical History GI Surgical History: Reports: None Social & Family History - Family History Family Medical History: Noncontributory Cardiac: Reports: MS Endocrine/Metabolic: Reports: Diabetes, type II - Tobacco Use Smoking Status *Q: Never Smoker Second Hand Smoke Exposure: No - Caffeine Use Caffeine Use: Reports: Coffee - Recreational Drug Use Recreational Drug Use: No - Living Situation & Occupation Living situation: Reports: with Family Occupation: Unemployed ED ROS GENERAL - Review of Systems Review Of Systems: Comprehensive ROS is negative, except as noted in HPI. ED EXAM, GI/ABD - Physical Exam Exam: See Below Exam Limited By: No Limitations General Appearance: Alert, WD/WN, Mild Distress, Other (pain). No: Active Emesis Ears: Hearing Grossly Normal Throat/Mouth: Normal Voice, No Airway Compromise Head: Atraumatic Neck: Non-Tender, Full Range of Motion Respiratory/Chest: No Respiratory Distress Cardiovascular: Regular Rate, Rhythm GI/Abdominal Exam: Abnormal Bowel Sounds, Other (hyper BS, general tenderness ) . No: Distended, Guarding, Rigid, Rebound, Tender Neurological: Alert, Oriented, Normal Cognition, No Motor/Sensory Deficits Psychiatric: Normal Affect, Normal Mood Skin Exam: Warm, Dry, Normal Color Lymphatic: No Adenopathy Course - Vital Signs Last Recorded V/S: Last Vital Signs Temp 37.0 C 08/23/19 00:00 Pulse 66 08/23/19 00:00 Resp 24 H 08/23/19 00:00 BP 105/56 L 08/23/19 00:00 Pulse Ox 100 08/23/19 00:00 - Orders/Labs/Meds Orders: Active Orders 24 hr Category Date Time Status Abdomen Pelvis w Cont [CT] Urgent Exams 08/23/19 00:55 Taken CULTURE URINE [RM] Stat Lab 08/23/19 00:37 Received HYDROmorphone [Dilaudid] Med 08/23/19 02:03 Once 0.5 mg IVPUSH ONETIME ONE Labs: Laboratory Tests 08/23/19 08/23/19 08/23/19 Range/Units 00:15 00:15 00:15 WBC 7.6 (5.0-10.0) 10^3/uL RBC 3.06 L (4.2-5.4) 10^6/uL Hgb 9.8 L (12.0-16.0) g/dL Hct 28.4 L (37.0-47.0) % MCV 92.8 (80-100) fL MCH 32.0 (27.0-34.0) pg MCHC 34.5 (33.0-35.0) g/dL Plt Count 95 L (150-450) 10^3/uL Neut % (Auto) 69.8 (42.2-75.2) % Lymph % (Auto) 14.6 L (20.5-50.1) % Tripp % (Auto) 7.9 (2-8) % Eos % (Auto) 6.6 H (1.0-3.0) % Baso % (Auto) 1.1 H (0.0-1.0) % Sodium 140 (136-145) mmol/L Potassium 4.0 (3.5-5.1) mmol/L Chloride 107 (98-107) mmol/L Carbon Dioxide 24 (21-32) mmol/L Anion Gap 13.0 (7-13) mEq/L BUN 16 (7-18) mg/dL Creatinine 0.79 (0.55-1.02) mg/dL Est Cr Clr Drug Dosing 82.62 mL/min Estimated GFR (MDRD) > 60 BUN/Creatinine Ratio 20.3 (No establ ref range) Glucose 88 (74-99) mg/dL Lactic Acid (0.4-2.0) mmol/L Calcium 7.8 L (8.5-10.1) mg/dL Total Bilirubin 0.8 (0.2-1.0) mg/dL AST 22 (15-37) U/L ALT 27 (14-59) U/L Alkaline Phosphatase 78 (46-116) U/L Ammonia 37 H (11-32) umol/L Total Protein 6.8 (6.4-8.2) g/dL Albumin 3.0 L (3.4-5.0) g/dL Globulin 3.8 Albumin/Globulin Ratio 0.79 Amylase 1212 H (25-115) U/L Lipase 16728 H (73-393) U/L Urine Color (YELLOW) Urine Appearance (CLEAR) Urine pH (5.0-9.0) Ur Specific [place] (1.005-1.030) Urine Protein (NEGATIVE) Urine Glucose (UA) (NEGATIVE) Urine Ketones (NEGATIVE) Urine Occult Blood (NEGATIVE) Urine Nitrite (NEGATIVE) Urine Bilirubin (NEGATIVE) Urine Urobilinogen (0.2-1.0) mg/dL Ur Leukocyte Esterase (NEGATIVE) Urine RBC /HPF Urine WBC (0-5/HPF) /HPF Ur Epithelial Cells (NOT SEEN) /HPF Urine Bacteria (0-FEW/HPF) /HPF Urine HCG, Qual Urine Opiates Screen (NEGATIVE) Ur Oxycodone Screen (NEGATIVE) Urine Methadone Screen (NEGATIVE) Ur Barbiturates Screen (NEGATIVE) U Tricyclic Antidepress (NEGATIVE) Ur Phencyclidine Scrn (NEGATIVE) Ur Amphetamine Screen (NEGATIVE) U Methamphetamines Scrn (NEGATIVE) Urine MDMA Screen (NEGATIVE) U Benzodiazepines Scrn (NEGATIVE) Urine Cocaine Screen (NEGATIVE) U Marijuana (THC) Screen (NEGATIVE) 08/23/19 08/23/19 08/23/19 Range/Units 00:15 00:37 00:37 WBC (5.0-10.0) 10^3/uL RBC (4.2-5.4) 10^6/uL Hgb (12.0-16.0) g/dL Hct (37.0-47.0) % MCV (80-100) fL MCH (27.0-34.0) pg MCHC (33.0-35.0) g/dL Plt Count (150-450) 10^3/uL Neut % (Auto) (42.2-75.2) % Lymph % (Auto) (20.5-50.1) % Tripp % (Auto) (2-8) % Eos % (Auto) (1.0-3.0) % Baso % (Auto) (0.0-1.0) % Sodium (136-145) mmol/L Potassium (3.5-5.1) mmol/L Chloride (98-107) mmol/L Carbon Dioxide (21-32) mmol/L Anion Gap (7-13) mEq/L BUN (7-18) mg/dL Creatinine (0.55-1.02) mg/dL Est Cr Clr Drug Dosing mL/min Estimated GFR (MDRD) BUN/Creatinine Ratio (No establ ref range) Glucose (74-99) mg/dL Lactic Acid 0.7 (0.4-2.0) mmol/L Calcium (8.5-10.1) mg/dL Total Bilirubin (0.2-1.0) mg/dL AST (15-37) U/L ALT (14-59) U/L Alkaline Phosphatase (46-116) U/L Ammonia (11-32) umol/L Total Protein (6.4-8.2) g/dL Albumin (3.4-5.0) g/dL Globulin Albumin/Globulin Ratio Amylase (25-115) U/L Lipase (73-393) U/L Urine Color Yellow (YELLOW) Urine Appearance Slightly cloudy (CLEAR) Urine pH 6.5 (5.0-9.0) Ur Specific [place] >= 1.030 (1.005-1.030) Urine Protein Negative (NEGATIVE) Urine Glucose (UA) Negative (NEGATIVE) Urine Ketones Negative (NEGATIVE) Urine Occult Blood Negative (NEGATIVE) Urine Nitrite Negative (NEGATIVE) Urine Bilirubin Negative (NEGATIVE) Urine Urobilinogen 2.0 H (0.2-1.0) mg/dL Ur Leukocyte Esterase Trace H (NEGATIVE) Urine RBC 0-5 /HPF Urine WBC 0-5 (0-5/HPF) /HPF Ur Epithelial Cells Moderate H (NOT SEEN) /HPF Urine Bacteria Moderate H (0-FEW/HPF) /HPF Urine HCG, Qual Negative Urine Opiates Screen (NEGATIVE) Ur Oxycodone Screen (NEGATIVE) Urine Methadone Screen (NEGATIVE) Ur Barbiturates Screen (NEGATIVE) U Tricyclic Antidepress (NEGATIVE) Ur Phencyclidine Scrn (NEGATIVE) Ur Amphetamine Screen (NEGATIVE) U Methamphetamines Scrn (NEGATIVE) Urine MDMA Screen (NEGATIVE) U Benzodiazepines Scrn (NEGATIVE) Urine Cocaine Screen (NEGATIVE) U Marijuana (THC) Screen (NEGATIVE) 08/23/19 Range/Units 00:37 WBC (5.0-10.0) 10^3/uL RBC (4.2-5.4) 10^6/uL Hgb (12.0-16.0) g/dL Hct (37.0-47.0) % MCV (80-100) fL MCH (27.0-34.0) pg MCHC (33.0-35.0) g/dL Plt Count (150-450) 10^3/uL Neut % (Auto) (42.2-75.2) % Lymph % (Auto) (20.5-50.1) % Tripp % (Auto) (2-8) % Eos % (Auto) (1.0-3.0) % Baso % (Auto) (0.0-1.0) % Sodium (136-145) mmol/L Potassium (3.5-5.1) mmol/L Chloride (98-107) mmol/L Carbon Dioxide (21-32) mmol/L Anion Gap (7-13) mEq/L BUN (7-18) mg/dL Creatinine (0.55-1.02) mg/dL Est Cr Clr Drug Dosing mL/min Estimated GFR (MDRD) BUN/Creatinine Ratio (No establ ref range) Glucose (74-99) mg/dL Lactic Acid (0.4-2.0) mmol/L Calcium (8.5-10.1) mg/dL Total Bilirubin (0.2-1.0) mg/dL AST (15-37) U/L ALT (14-59) U/L Alkaline Phosphatase (46-116) U/L Ammonia (11-32) umol/L Total Protein (6.4-8.2) g/dL Albumin (3.4-5.0) g/dL Globulin Albumin/Globulin Ratio Amylase (25-115) U/L Lipase (73-393) U/L Urine Color (YELLOW) Urine Appearance (CLEAR) Urine pH (5.0-9.0) Ur Specific [place] (1.005-1.030) Urine Protein (NEGATIVE) Urine Glucose (UA) (NEGATIVE) Urine Ketones (NEGATIVE) Urine Occult Blood (NEGATIVE) Urine Nitrite (NEGATIVE) Urine Bilirubin (NEGATIVE) Urine Urobilinogen (0.2-1.0) mg/dL Ur Leukocyte Esterase (NEGATIVE) Urine RBC /HPF Urine WBC (0-5/HPF) /HPF Ur Epithelial Cells (NOT SEEN) /HPF Urine Bacteria (0-FEW/HPF) /HPF Urine HCG, Qual Urine Opiates Screen Negative (NEGATIVE) Ur Oxycodone Screen Negative (NEGATIVE) Urine Methadone Screen Negative (NEGATIVE) Ur Barbiturates Screen Negative (NEGATIVE) U Tricyclic Antidepress Negative (NEGATIVE) Ur Phencyclidine Scrn Negative (NEGATIVE) Ur Amphetamine Screen Negative (NEGATIVE) U Methamphetamines Scrn Negative (NEGATIVE) Urine MDMA Screen Negative (NEGATIVE) U Benzodiazepines Scrn Negative (NEGATIVE) Urine Cocaine Screen Negative (NEGATIVE) U Marijuana (THC) Screen Negative (NEGATIVE) Meds: Medications Discontinued Medications Generic Name Dose Route Start Last Admin Trade Name Meme PRN Reason Stop Dose Admin Iopamidol 100 ml 08/23/19 00:55 08/23/19 01:04 Isovue-300 (61%) IVPUSH 08/23/19 00:56 100 ml ONETIME ONE Administration Ketorolac Tromethamine 30 mg 08/23/19 00:16 08/23/19 00:19 Toradol IVPUSH 08/23/19 00:17 30 mg ONETIME ONE Administration - Re-Assessments/Exams Free Text/Narrative Re-Assessment/Exam: 08/23/19 02:[address] Flower who kindly admitted pt. Departure - Departure Time of Disposition: 02:04 Disposition: Admitted As Inpatient 67 Condition: Fair Clinical Impression: Alcoholic cirrhosis of liver with ascites Pancreatitis Qualifiers: Chronicity: acute Pancreatitis type: unspecified pancreatitis type Acute pancreatitis complication: unspecified Qualified Code(s): K85.90 - Acute pancreatitis without necrosis or infection, unspecified - Discharge Information Forms: ED Department Discharge Sepsis Event Note - Evaluation Sepsis Screening Result: No Definite Risk - Focused Exam Vital Signs: Vital Signs Temp Pulse Resp BP Pulse Ox 08/23/19 00:00 37.0 C 66 24 H 105/56 L 100 Date Exam was Performed: 08/23/19 Time Exam was Performed: 02:04 - My Orders Last 24 Hours: My Active Orders 08/23/19 00:37 CULTURE URINE [RM] Stat 08/23/19 00:55 Abdomen Pelvis w Cont [CT] Urgent 08/23/19 02:03 HYDROmorphone [Dilaudid] 0.5 mg IVPUSH ONETIME ONE - Assessment/Plan Last 24 Hours: My Active Orders 08/23/19 00:37 CULTURE URINE [RM] Stat 08/23/19 00:55 Abdomen Pelvis w Cont [CT] Urgent 08/23/19 02:03 HYDROmorphone [Dilaudid] 0.5 mg IVPUSH ONETIME ONE
[2019-08-23 00:48] LABS: CHLORIDE,CL 107 mmol/L (98-107); SODIUM,NA 140 mmol/L (136-145)
[2019-08-23] MEDS ORDERED: Iopamidol 612 MG/ML 100 ML Bottle IVPUSH ONE (00:55)
[2019-08-23] MEDS ORDERED: HYDROmorphone 0.5 MG/0.5 ML Syringe IVPUSH ONE (02:03)
--- NOTE | 2019-08-23 02:46 | PCM.HP ---
H&P History of Present Illness - General Date of Service: 08/23/19 Admit Problem/Dx: Admission Diagnosis/Problem Admission Diagnosis/Problem Pancreatitis Source of Information: Patient, Old Records History Limitations: Reports: No Limitations - History of Present Illness Initial Comments - Free Text/Narative: 44-year-old female with decompensated alcoholic liver cirrhosis, ascites, and esophageal varices, history of SBP many hospitalization with SBP, gets followed with GI at [facility] who presents to ED at [place] with Abdominal pain and nausea. Pt [place] [address] and Amylase of 1212. Pt also had CT abd/Pelvis and that showed: Pancreatic head edema, Fluid in the lesser sac. suspect acute pancreatitis. she is admitted for acute pancreatitis. CT also showed: Cholelithiasis without specific evidence of acute cholecystitis. she is denying use of alcohol and any over the counter medication. she graded the pain as 10/10 with no nausea or vomiting or Diarrhea. she eat today yogurt and mash potato. Onset of Symptoms: Reports: Today, Sudden Duration of Symptoms: Reports: Hour(s): Quality: Reports: Sharp Severity: Severe Associated Symptoms: Reports: No Other Symptoms Upper Abdomen Pain Score (Numeric/FACES): 10 - Related Data Allergies/Adverse Reactions: Allergies Allergy/AdvReac Type Severity Reaction Status Date / Time acetaminophen Allergy Hives Verified 08/22/19 23:59 [From Comtrex Cold-Cough] dextromethorphan Allergy Hives Verified 08/22/19 23:59 [From Comtrex Cold-Cough] phenylephrine Allergy Hives Verified 08/22/19 23:59 [From Comtrex Cold-Cough] wool Allergy itchy Uncoded 08/22/19 23:59 Home Medications: Home Meds Ferrous Sulfate [Iron] 325 mg PO BID 05/09/18 [History] Pantoprazole Sodium 40 mg PO DAILY 05/09/18 [History] Folic Acid 1 mg PO DAILY 10/12/18 [History] Furosemide 20 mg PO DAILY 01/04/19 [History] Lactulose [Cephulac] 20 gm PO TID 30 Days #90 cup 01/06/19 [Rx] Spironolactone 25 mg PO DAILY 30 Days #30 tablet 01/06/19 [Rx] Ondansetron [Zofran ODT] 4 mg PO Q6H PRN 03/27/19 [History] Rifaximin [Xifaxan] 550 mg PO BID 03/27/19 [History] ursodioL [Ursodiol] 300 mg PO BID 03/27/19 [History] Past Medical History - Past Health History Medical/Surgical History: Denies Medical/Surgical History HEENT History: Reports: Epistaxis, Impaired Vision Cardiovascular History: Reports: None Respiratory History: Reports: None Gastrointestinal History: Reports: Cholelithiasis, Cirrhosis, GERD, GI Bleed Other Gastrointestinal History: liver cirrhosis, gallbladder polyps Genitourinary History: Reports: None 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 Neurological History: Reports: None Psychiatric History: Reports: Addiction Endocrine/Metabolic History: Reports: None Hematologic History: Reports: Anemia, Iron Deficiency Immunologic History: Reports: None Oncologic (Cancer) History: Reports: None Dermatologic History: Reports: None - Infectious Disease History Infectious Disease History: Reports: None - Past Surgical History GI Surgical History: Reports: None Social & Family History - Family History Family Medical History: Noncontributory Cardiac: Reports: MO Endocrine/Metabolic: Reports: Diabetes, type II - Tobacco Use Smoking Status *Q: Never Smoker Second Hand Smoke Exposure: No - Caffeine Use Caffeine Use: Reports: Coffee - Recreational Drug Use Recreational Drug Use: No - Living Situation & Occupation Living situation: Reports: with Family Occupation: Unemployed H&P Review of Systems - Review of Systems: Review Of Systems: See Below General: Denies: Fever, Chills, Weakness, Weight Loss, Weight Gain HEENT: Denies: Dysphasia, Post Nasal Drip, Sinus Congestion, Sore Throat, Visual Changes Pulmonary: Denies: Shortness of Breath, Wheezing, Cough, Sputum Cardiovascular: Denies: Chest Pain, Edema, Lightheadedness Gastrointestinal: Reports: Abdominal Pain. Denies: Diarrhea, Nausea, Vomiting Genitourinary: Denies: Dysuria, Burning, Urgency, Flank Pain Musculoskeletal: Denies: Neck Pain, Leg Pain, Joint Pain, Muscle Pain Skin: Denies: Cyanosis, Jaundice, Bruising, Pruritis, Rash Psychiatric: Denies: Confusion, Anxiety Neurological: Denies: Confusion, Numbness, Tremors Hematologic/Lymphatic: Reports: Anemia Immunologic: Reports: No Symptoms Exam - Exam Exam: See Below - Vital Signs Vital Signs: Last Vital Signs Temp 37.0 C 08/23/19 00:00 Pulse 66 08/23/19 00:00 Resp 24 H 08/23/19 00:00 BP 105/56 L 08/23/19 00:00 Pulse Ox 100 08/23/19 00:00 Weight: 69.944 kg - Exam Quality Assessment: DVT Prophylaxis. No: Supplemental Oxygen, Urinary Catheter General: Alert, Oriented, Cooperative HEENT: Conjunctiva Clear, EOMI, Mucosa Moist & [place] Neck: Supple. No: Lymphadenopathy, JVD, Thyromegaly Lungs: Clear to Auscultation, Normal Respiratory Effort. No: Crackles, Wheezing Cardiovascular: Regular Rate, Regular Rhythm GI/Abdominal Exam: Normal Bowel Sounds, Soft, Tender (right upper quqdrant). No : Guarding, Rigid, Rebound (Female) Exam: Deferred Rectal (Female) Exam: Deferred Extremities: Normal Inspection, No Pedal Edema Skin: Warm, Dry, Intact Neurological: Cranial Nerves Intact, Reflexes Equal Bilateral Neuro Extensive - Mental Status: Alert, Oriented x3, Normal Mood/Affect, Normal Cognition, Memory Intact Neuro Extensive - Motor, Sensory, Reflexes: CN II-XII Intact, Normal Gait, Normal Reflexes Psychiatric: Alert, Normal Affect, Normal Mood - Patient Data Lab Results Last 24 hrs: Laboratory Results - last 24 hr 08/23/19 08/23/19 08/23/19 Range/Units 00:15 00:15 00:15 WBC 7.6 (5.0-10.0) 10^3/uL RBC 3.06 L (4.2-5.4) 10^6/uL Hgb 9.8 L (12.0-16.0) g/dL Hct 28.4 L (37.0-47.0) % MCV 92.8 (80-100) fL MCH 32.0 (27.0-34.0) pg MCHC 34.5 (33.0-35.0) g/dL Plt Count 95 L (150-450) 10^3/uL Neut % (Auto) 69.8 (42.2-75.2) % Lymph % (Auto) 14.6 L (20.5-50.1) % [place] % (Auto) 7.9 (2-8) % Eos % (Auto) 6.6 H (1.0-3.0) % Baso % (Auto) 1.1 H (0.0-1.0) % Sodium 140 (136-145) mmol/L Potassium 4.0 (3.5-5.1) mmol/L Chloride 107 (98-107) mmol/L Carbon Dioxide 24 (21-32) mmol/L Anion Gap 13.0 (7-13) mEq/L BUN 16 (7-18) mg/dL Creatinine 0.79 (0.55-1.02) mg/dL Est Cr Clr Drug Dosing 82.62 mL/min Estimated GFR (MDRD) > 60 BUN/Creatinine Ratio 20.3 (No establ ref range) Glucose 88 (74-99) mg/dL Lactic Acid (0.4-2.0) mmol/L Calcium 7.8 L (8.5-10.1) mg/dL Total Bilirubin 0.8 (0.2-1.0) mg/dL AST 22 (15-37) U/L ALT 27 (14-59) U/L Alkaline Phosphatase 78 (46-116) U/L Ammonia 37 H (11-32) umol/L Total Protein 6.8 (6.4-8.2) g/dL Albumin 3.0 L (3.4-5.0) g/dL Globulin 3.8 Albumin/Globulin Ratio 0.79 Triglycerides (0-149) mg/dL Amylase 1212 H (25-115) U/L Lipase 67502 H (73-393) U/L Urine Color (YELLOW) Urine Appearance (CLEAR) Urine pH (5.0-9.0) Ur Specific [place] (1.005-1.030) Urine Protein (NEGATIVE) Urine Glucose (UA) (NEGATIVE) Urine Ketones (NEGATIVE) Urine Occult Blood (NEGATIVE) Urine Nitrite (NEGATIVE) Urine Bilirubin (NEGATIVE) Urine Urobilinogen (0.2-1.0) mg/dL Ur Leukocyte Esterase (NEGATIVE) Urine RBC /HPF Urine WBC (0-5/HPF) /HPF Ur Epithelial Cells (NOT SEEN) /HPF Urine Bacteria (0-FEW/HPF) /HPF Urine HCG, Qual Urine Opiates Screen (NEGATIVE) Ur Oxycodone Screen (NEGATIVE) Urine Methadone Screen (NEGATIVE) Ur Barbiturates Screen (NEGATIVE) U Tricyclic Antidepress (NEGATIVE) Ur Phencyclidine Scrn (NEGATIVE) Ur Amphetamine Screen (NEGATIVE) U Methamphetamines Scrn (NEGATIVE) Urine MDMA Screen (NEGATIVE) U Benzodiazepines Scrn (NEGATIVE) Urine Cocaine Screen (NEGATIVE) U Marijuana (THC) Screen (NEGATIVE) Ethyl Alcohol (0) mg/dL 08/23/19 08/23/19 08/23/19 Range/Units 00:15 00:15 00:37 WBC (5.0-10.0) 10^3/uL RBC (4.2-5.4) 10^6/uL Hgb (12.0-16.0) g/dL Hct (37.0-47.0) % MCV (80-100) fL MCH (27.0-34.0) pg MCHC (33.0-35.0) g/dL Plt Count (150-450) 10^3/uL Neut % (Auto) (42.2-75.2) % Lymph % (Auto) (20.5-50.1) % [place] % (Auto) (2-8) % Eos % (Auto) (1.0-3.0) % Baso % (Auto) (0.0-1.0) % Sodium (136-145) mmol/L Potassium (3.5-5.1) mmol/L Chloride (98-107) mmol/L Carbon Dioxide (21-32) mmol/L Anion Gap (7-13) mEq/L BUN (7-18) mg/dL Creatinine (0.55-1.02) mg/dL Est Cr Clr Drug Dosing mL/min Estimated GFR (MDRD) BUN/Creatinine Ratio (No establ ref range) Glucose (74-99) mg/dL Lactic Acid 0.7 (0.4-2.0) mmol/L Calcium (8.5-10.1) mg/dL Total Bilirubin (0.2-1.0) mg/dL AST (15-37) U/L ALT (14-59) U/L Alkaline Phosphatase (46-116) U/L Ammonia (11-32) umol/L Total Protein (6.4-8.2) g/dL Albumin (3.4-5.0) g/dL Globulin Albumin/Globulin Ratio Triglycerides 44 (0-149) mg/dL Amylase (25-115) U/L Lipase (73-393) U/L Urine Color Yellow (YELLOW) Urine Appearance Slightly cloudy (CLEAR) Urine pH 6.5 (5.0-9.0) Ur Specific [place] >= 1.030 (1.005-1.030) Urine Protein Negative (NEGATIVE) Urine Glucose (UA) Negative (NEGATIVE) Urine Ketones Negative (NEGATIVE) Urine Occult Blood Negative (NEGATIVE) Urine Nitrite Negative (NEGATIVE) Urine Bilirubin Negative (NEGATIVE) Urine Urobilinogen 2.0 H (0.2-1.0) mg/dL Ur Leukocyte Esterase Trace H (NEGATIVE) Urine RBC 0-5 /HPF Urine WBC 0-5 (0-5/HPF) /HPF Ur Epithelial Cells Moderate H (NOT SEEN) /HPF Urine Bacteria Moderate H (0-FEW/HPF) /HPF Urine HCG, Qual Urine Opiates Screen (NEGATIVE) Ur Oxycodone Screen (NEGATIVE) Urine Methadone Screen (NEGATIVE) Ur Barbiturates Screen (NEGATIVE) U Tricyclic Antidepress (NEGATIVE) Ur Phencyclidine Scrn (NEGATIVE) Ur Amphetamine Screen (NEGATIVE) U Methamphetamines Scrn (NEGATIVE) Urine MDMA Screen (NEGATIVE) U Benzodiazepines Scrn (NEGATIVE) Urine Cocaine Screen (NEGATIVE) U Marijuana (THC) Screen (NEGATIVE) Ethyl Alcohol < 3 (0) mg/dL 08/23/19 08/23/19 Range/Units 00:37 00:37 WBC (5.0-10.0) 10^3/uL RBC (4.2-5.4) 10^6/uL Hgb (12.0-16.0) g/dL Hct (37.0-47.0) % MCV (80-100) fL MCH (27.0-34.0) pg MCHC (33.0-35.0) g/dL Plt Count (150-450) 10^3/uL Neut % (Auto) (42.2-75.2) % Lymph % (Auto) (20.5-50.1) % [place] % (Auto) (2-8) % Eos % (Auto) (1.0-3.0) % Baso % (Auto) (0.0-1.0) % Sodium (136-145) mmol/L Potassium (3.5-5.1) mmol/L Chloride (98-107) mmol/L Carbon Dioxide (21-32) mmol/L Anion Gap (7-13) mEq/L BUN (7-18) mg/dL Creatinine (0.55-1.02) mg/dL Est Cr Clr Drug Dosing mL/min Estimated GFR (MDRD) BUN/Creatinine Ratio (No establ ref range) Glucose (74-99) mg/dL Lactic Acid (0.4-2.0) mmol/L Calcium (8.5-10.1) mg/dL Total Bilirubin (0.2-1.0) mg/dL AST (15-37) U/L ALT (14-59) U/L Alkaline Phosphatase (46-116) U/L Ammonia (11-32) umol/L Total Protein (6.4-8.2) g/dL Albumin (3.4-5.0) g/dL Globulin Albumin/Globulin Ratio Triglycerides (0-149) mg/dL Amylase (25-115) U/L Lipase (73-393) U/L Urine Color (YELLOW) Urine Appearance (CLEAR) Urine pH (5.0-9.0) Ur Specific [place] (1.005-1.030) Urine Protein (NEGATIVE) Urine Glucose (UA) (NEGATIVE) Urine Ketones (NEGATIVE) Urine Occult Blood (NEGATIVE) Urine Nitrite (NEGATIVE) Urine Bilirubin (NEGATIVE) Urine Urobilinogen (0.2-1.0) mg/dL Ur Leukocyte Esterase (NEGATIVE) Urine RBC /HPF Urine WBC (0-5/HPF) /HPF Ur Epithelial Cells (NOT SEEN) /HPF Urine Bacteria (0-FEW/HPF) /HPF Urine HCG, Qual Negative Urine Opiates Screen Negative (NEGATIVE) Ur Oxycodone Screen Negative (NEGATIVE) Urine Methadone Screen Negative (NEGATIVE) Ur Barbiturates Screen Negative (NEGATIVE) U Tricyclic Antidepress Negative (NEGATIVE) Ur Phencyclidine Scrn Negative (NEGATIVE) Ur Amphetamine Screen Negative (NEGATIVE) U Methamphetamines Scrn Negative (NEGATIVE) Urine MDMA Screen Negative (NEGATIVE) U Benzodiazepines Scrn Negative (NEGATIVE) Urine Cocaine Screen Negative (NEGATIVE) U Marijuana (THC) Screen Negative (NEGATIVE) Ethyl Alcohol (0) mg/dL Result Diagrams: 08/23/19 00:15 08/23/19 00:15 - Problem List (1) Abdominal pain SNOMED Code(s): 15565420 ICD Code: R10.9 - UNSPECIFIED ABDOMINAL PAIN Status: Acute Current Visit : No Qualifiers: Abdominal location: epigastric Qualified Code(s): R10.13 - Epigastric pain (2) Alcoholic cirrhosis of liver with ascites SNOMED Code(s): 506614873, 664034953 ICD Code: K70.31 - ALCOHOLIC CIRRHOSIS OF LIVER WITH ASCITES Status: Acute Current Visit: No (3) Pancreatitis SNOMED Code(s): 36717253 ICD Code: K85.90 - ACUTE PANCREATITIS WITHOUT NECROSIS OR INFECTION, UNSP Status: Acute Current Visit: No Qualifiers: Chronicity: acute Pancreatitis type: unspecified pancreatitis type Acute pancreatitis complication: unspecified Qualified Code(s): K85.90 - Acute pancreatitis without necrosis or infection, unspecified Problem List Initiated/Reviewed/Updated: Yes Orders Last 24hrs: Active Orders 24 hr Category Date Time Status Admission Diagnosis [ADT] Routine ADT 08/23/19 02:05 Ordered Admission Diagnosis [ADT] Stat ADT 08/23/19 02:06 Ordered Admission Status [Patient Status] [ADT] Routine ADT 08/23/19 02:05 Active Admission Status [Patient Status] [ADT] Routine ADT 08/23/19 02:06 Active Abdomen Pelvis w Cont [CT] Urgent Exams 08/23/19 00:55 Taken CULTURE URINE [RM] Stat Lab 08/23/19 00:37 Received Assessment/Plan Comment:: This is a 44-year-old female with decompensated alcoholic liver cirrhosis, ascites, and esophageal varices, history of SBP many hospitalization with SBP, gets followed with GI at [facility] who presents to ED at [place] with Abdominal pain and nausea. [place] [address] and Amylase of 1212. Pt also had CT abd/Pelvis and that showed: Pancreatic head edema, Fluid in the lesser sac. suspect acute pancreatitis. she is admitted for acute pancreatitis. CT also showed: Cholelithiasis without specific evidence of acute cholecystitis. she is denying use of alcohol and any over the counter medication. she graded the pain as 10/10 with no nausea or vomiting or Diarrhea. she eat today yogurt and mash potato Impression and Plan: 1. Acute Pancreatitis: The etiology not clear, she had no recent alcohol use, there is cholelithiasis without cholecystitis thogh CT did not mention any thing about CBD sludge -Will manage conservatively -Will start LR at 125 ml/hr -Will control pain with Dilaudid -Will start with clear liquid and advance diet as tolerated -Check BMP and Lipase again in AM -Will not start her on abx now, no marcy or leukocytosis, Follow culture 2. History of decompensated liver cirrhosis: will continue lactulose and Rifaximin 3. Abdominal Pain: This is secondary to acute pancreatitis -Will continue IVF and pain control with Dilaudid DVT propphylaxis: Continue Subq heparin Code Status: Discussed with Pt and she is Full Code
[2019-08-23] MEDS ORDERED: Acetaminophen 325 MG Tab PO PRN (03:12)
[2019-08-23] MEDS ORDERED: Docusate Sodium 100 MG Cap PO PRN (03:12)
[2019-08-23] MEDS ORDERED: Heparin Sodium 5,000 Units/ML Vial SUBCUT SCH (03:15)
[2019-08-23] MEDS: Lactated Ringers 1,000 ML IV SCH ×3 (03:43→20:02)
[2019-08-23] MEDS: Pantoprazole 40 MG Tab.CR PO SCH (05:14)
[2019-08-23] MEDS: HYDROmorphone 1 MG/ML Syringe IVPUSH PRN ×3 (05:15→17:44)
[2019-08-23] MEDS: Ondansetron 4 MG/2 ML SDV IVPUSH PRN ×4 (06:21→21:45)
[2019-08-23] MEDS: Rifaximin 550 MG Tab PO SCH ×2 (08:40→21:50)
[2019-08-23] MEDS: Folic Acid 1 MG Tab PO SCH (08:40)
[2019-08-23] MEDS: Lactulose Soln 10 GM/15 ML 30 ML UD Cup PO SCH ×3 (08:40→21:50)
[2019-08-23] MEDS: Furosemide 20 MG Tab PO SCH (10:58)
[2019-08-23] MEDS: Spironolactone 25 MG Tab PO SCH (10:58)
--- NOTE | 2019-08-23 11:23 | PCM.PN ---
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 The patient says she has not been drinking lately. She was complaining of moderate to severe mid abdominal pain. No radiation. No associated fever or chills. Started on the day of admission. She was found to have elevated lipase, CT evidence of pancreatitis. She was admitted and on clear liquid diet, IV fluids. She reports the pain has improved. There is associated nausea and episodic vomiting. Functional Status: Reports: Pain Controlled. Denies: Tolerating Diet - Review of Systems General: Denies: Fever, Weakness Pulmonary: Denies: Shortness of Breath Cardiovascular: Denies: Chest Pain, Edema Genitourinary: Denies: Dysuria - Patient Data Vitals - Most Recent: Last Vital Signs Temp 98.7 F 08/23/19 07:31 Pulse 63 08/23/19 07:31 Resp 16 08/23/19 07:31 BP 93/42 L 08/23/19 07:31 Pulse Ox 98 08/23/19 07:31 Weight - Most Recent: 154 lb 3.2 oz I&O - Last 24 Hours: Intake & Output 08/22/19 08/23/19 08/23/19 22:59 06:59 14:59 Intake Total 30 Output Total 200 Balance -200 30 Lab Results Last 24 Hours: Laboratory Results - last 24 hr 08/23/19 08/23/19 08/23/19 Range/Units 00:15 00:15 00:15 WBC 7.6 (5.0-10.0) 10^3/uL RBC 3.06 L (4.2-5.4) 10^6/uL Hgb 9.8 L (12.0-16.0) g/dL Hct 28.4 L (37.0-47.0) % MCV 92.8 (80-100) fL MCH 32.0 (27.0-34.0) pg MCHC 34.5 (33.0-35.0) g/dL Plt Count 95 L (150-450) 10^3/uL Neut % (Auto) 69.8 (42.2-75.2) % Lymph % (Auto) 14.6 L (20.5-50.1) % [place] % (Auto) 7.9 (2-8) % Eos % (Auto) 6.6 H (1.0-3.0) % Baso % (Auto) 1.1 H (0.0-1.0) % Sodium 140 (136-145) mmol/L Potassium 4.0 (3.5-5.1) mmol/L Chloride 107 (98-107) mmol/L Carbon Dioxide 24 (21-32) mmol/L Anion Gap 13.0 (7-13) mEq/L BUN 16 (7-18) mg/dL Creatinine 0.79 (0.55-1.02) mg/dL Est Cr Clr Drug Dosing 82.62 mL/min Estimated GFR (MDRD) > 60 BUN/Creatinine Ratio 20.3 (No establ ref range) Glucose 88 (74-99) mg/dL Lactic Acid (0.4-2.0) mmol/L Calcium 7.8 L (8.5-10.1) mg/dL Total Bilirubin 0.8 (0.2-1.0) mg/dL AST 22 (15-37) U/L ALT 27 (14-59) U/L Alkaline Phosphatase 78 (46-116) U/L Ammonia 37 H (11-32) umol/L Total Protein 6.8 (6.4-8.2) g/dL Albumin 3.0 L (3.4-5.0) g/dL Globulin 3.8 Albumin/Globulin Ratio 0.79 Triglycerides (0-149) mg/dL Amylase 1212 H (25-115) U/L Lipase 69518 H (73-393) U/L Urine Color (YELLOW) Urine Appearance (CLEAR) Urine pH (5.0-9.0) Ur Specific Seth (1.005-1.030) Urine Protein (NEGATIVE) Urine Glucose (UA) (NEGATIVE) Urine Ketones (NEGATIVE) Urine Occult Blood (NEGATIVE) Urine Nitrite (NEGATIVE) Urine Bilirubin (NEGATIVE) Urine Urobilinogen (0.2-1.0) mg/dL Ur Leukocyte Esterase (NEGATIVE) Urine RBC /HPF Urine WBC (0-5/HPF) /HPF Ur Epithelial Cells (NOT SEEN) /HPF Urine Bacteria (0-FEW/HPF) /HPF Urine HCG, Qual Urine Opiates Screen (NEGATIVE) Ur Oxycodone Screen (NEGATIVE) Urine Methadone Screen (NEGATIVE) Ur Barbiturates Screen (NEGATIVE) U Tricyclic Antidepress (NEGATIVE) Ur Phencyclidine Scrn (NEGATIVE) Ur Amphetamine Screen (NEGATIVE) U Methamphetamines Scrn (NEGATIVE) Urine MDMA Screen (NEGATIVE) U Benzodiazepines Scrn (NEGATIVE) Urine Cocaine Screen (NEGATIVE) U Marijuana (THC) Screen (NEGATIVE) Ethyl Alcohol (0) mg/dL 08/23/19 08/23/19 08/23/19 Range/Units 00:15 00:15 00:37 WBC (5.0-10.0) 10^3/uL RBC (4.2-5.4) 10^6/uL Hgb (12.0-16.0) g/dL Hct (37.0-47.0) % MCV (80-100) fL MCH (27.0-34.0) pg MCHC (33.0-35.0) g/dL Plt Count (150-450) 10^3/uL Neut % (Auto) (42.2-75.2) % Lymph % (Auto) (20.5-50.1) % [place] % (Auto) (2-8) % Eos % (Auto) (1.0-3.0) % Baso % (Auto) (0.0-1.0) % Sodium (136-145) mmol/L Potassium (3.5-5.1) mmol/L Chloride (98-107) mmol/L Carbon Dioxide (21-32) mmol/L Anion Gap (7-13) mEq/L BUN (7-18) mg/dL Creatinine (0.55-1.02) mg/dL Est Cr Clr Drug Dosing mL/min Estimated GFR (MDRD) BUN/Creatinine Ratio (No establ ref range) Glucose (74-99) mg/dL Lactic Acid 0.7 (0.4-2.0) mmol/L Calcium (8.5-10.1) mg/dL Total Bilirubin (0.2-1.0) mg/dL AST (15-37) U/L ALT (14-59) U/L Alkaline Phosphatase (46-116) U/L Ammonia (11-32) umol/L Total Protein (6.4-8.2) g/dL Albumin (3.4-5.0) g/dL Globulin Albumin/Globulin Ratio Triglycerides 44 (0-149) mg/dL Amylase (25-115) U/L Lipase (73-393) U/L Urine Color Yellow (YELLOW) Urine Appearance Slightly cloudy (CLEAR) Urine pH 6.5 (5.0-9.0) Ur Specific Seth >= 1.030 (1.005-1.030) Urine Protein Negative (NEGATIVE) Urine Glucose (UA) Negative (NEGATIVE) Urine Ketones Negative (NEGATIVE) Urine Occult Blood Negative (NEGATIVE) Urine Nitrite Negative (NEGATIVE) Urine Bilirubin Negative (NEGATIVE) Urine Urobilinogen 2.0 H (0.2-1.0) mg/dL Ur Leukocyte Esterase Trace H (NEGATIVE) Urine RBC 0-5 /HPF Urine WBC 0-5 (0-5/HPF) /HPF Ur Epithelial Cells Moderate H (NOT SEEN) /HPF Urine Bacteria Moderate H (0-FEW/HPF) /HPF Urine HCG, Qual Urine Opiates Screen (NEGATIVE) Ur Oxycodone Screen (NEGATIVE) Urine Methadone Screen (NEGATIVE) Ur Barbiturates Screen (NEGATIVE) U Tricyclic Antidepress (NEGATIVE) Ur Phencyclidine Scrn (NEGATIVE) Ur Amphetamine Screen (NEGATIVE) U Methamphetamines Scrn (NEGATIVE) Urine MDMA Screen (NEGATIVE) U Benzodiazepines Scrn (NEGATIVE) Urine Cocaine Screen (NEGATIVE) U Marijuana (THC) Screen (NEGATIVE) Ethyl Alcohol < 3 (0) mg/dL 08/23/19 08/23/19 Range/Units 00:37 00:37 WBC (5.0-10.0) 10^3/uL RBC (4.2-5.4) 10^6/uL Hgb (12.0-16.0) g/dL Hct (37.0-47.0) % MCV (80-100) fL MCH (27.0-34.0) pg MCHC (33.0-35.0) g/dL Plt Count (150-450) 10^3/uL Neut % (Auto) (42.2-75.2) % Lymph % (Auto) (20.5-50.1) % [place] % (Auto) (2-8) % Eos % (Auto) (1.0-3.0) % Baso % (Auto) (0.0-1.0) % Sodium (136-145) mmol/L Potassium (3.5-5.1) mmol/L Chloride (98-107) mmol/L Carbon Dioxide (21-32) mmol/L Anion Gap (7-13) mEq/L BUN (7-18) mg/dL Creatinine (0.55-1.02) mg/dL Est Cr Clr Drug Dosing mL/min Estimated GFR (MDRD) BUN/Creatinine Ratio (No establ ref range) Glucose (74-99) mg/dL Lactic Acid (0.4-2.0) mmol/L Calcium (8.5-10.1) mg/dL Total Bilirubin (0.2-1.0) mg/dL AST (15-37) U/L ALT (14-59) U/L Alkaline Phosphatase (46-116) U/L Ammonia (11-32) umol/L Total Protein (6.4-8.2) g/dL Albumin (3.4-5.0) g/dL Globulin Albumin/Globulin Ratio Triglycerides (0-149) mg/dL Amylase (25-115) U/L Lipase (73-393) U/L Urine Color (YELLOW) Urine Appearance (CLEAR) Urine pH (5.0-9.0) Ur Specific Seth (1.005-1.030) Urine Protein (NEGATIVE) Urine Glucose (UA) (NEGATIVE) Urine Ketones (NEGATIVE) Urine Occult Blood (NEGATIVE) Urine Nitrite (NEGATIVE) Urine Bilirubin (NEGATIVE) Urine Urobilinogen (0.2-1.0) mg/dL Ur Leukocyte Esterase (NEGATIVE) Urine RBC /HPF Urine WBC (0-5/HPF) /HPF Ur Epithelial Cells (NOT SEEN) /HPF Urine Bacteria (0-FEW/HPF) /HPF Urine HCG, Qual Negative Urine Opiates Screen Negative (NEGATIVE) Ur Oxycodone Screen Negative (NEGATIVE) Urine Methadone Screen Negative (NEGATIVE) Ur Barbiturates Screen Negative (NEGATIVE) U Tricyclic Antidepress Negative (NEGATIVE) Ur Phencyclidine Scrn Negative (NEGATIVE) Ur Amphetamine Screen Negative (NEGATIVE) U Methamphetamines Scrn Negative (NEGATIVE) Urine MDMA Screen Negative (NEGATIVE) U Benzodiazepines Scrn Negative (NEGATIVE) Urine Cocaine Screen Negative (NEGATIVE) U Marijuana (THC) Screen Negative (NEGATIVE) Ethyl Alcohol (0) mg/dL Med Orders - Current: Current Medications Docusate Sodium (Colace) 100 mg PO DAILY PRN PRN Reason: Constipation Folic Acid (Folic Acid) 1 mg PO DAILY [facility] Last Admin: 08/23/19 08:40 Dose: 1 mg Furosemide (Lasix) 20 mg PO DAILY [facility] Last Admin: 08/23/19 10:58 Dose: 20 mg Hydromorphone HCl (Dilaudid) 1 mg IVPUSH Q4H PRN PRN Reason: Abdominal Pain Last Admin: 08/23/19 09:58 Dose: 1 mg Lactated Ringer's (Ringers, Lactated) 1,000 mls @ 125 mls/hr IV ASDIRECTED [facility] Last Admin: 08/23/19 03:43 Dose: 125 mls/hr Lactulose (Cephulac) 20 gm PO TID [facility] Last Admin: 08/23/19 08:40 Dose: 20 gm Non-Formulary Medication (Ursodiol) 300 mg PO BID [facility] Ondansetron HCl (Zofran) 4 mg IVPUSH Q4H PRN PRN Reason: Nausea/Vomiting Last Admin: 08/23/19 10:58 Dose: 4 mg Pantoprazole Sodium (Protonix) 40 mg PO ACBREAKFAST [facility] Last Admin: 08/23/19 05:14 Dose: 40 mg Rifaximin (Xifaxan) 550 mg PO BID [facility] Last Admin: 08/23/19 08:40 Dose: 550 mg Spironolactone (Aldactone) 25 mg PO DAILY [facility] Last Admin: 08/23/19 10:58 Dose: 25 mg Discontinued Medications Acetaminophen (Tylenol) 650 mg PO Q4H PRN PRN Reason: Pain (mild 1-3 )/fever Heparin Sodium (Porcine) (Heparin Sodium) 5,000 units SUBCUT Q8H [facility] Last Admin: 08/23/19 07:47 Dose: Not Given Hydromorphone HCl (Dilaudid) 0.5 mg IVPUSH ONETIME ONE Stop: 08/23/19 02:04 Last Admin: 08/23/19 02:15 Dose: 0.5 mg Iopamidol (Isovue-300 (61%)) 100 ml IVPUSH ONETIME ONE Stop: 08/23/19 00:56 Last Admin: 08/23/19 01:04 Dose: 100 ml Ketorolac Tromethamine (Toradol) 30 mg IVPUSH ONETIME ONE Stop: 08/23/19 00:17 Last Admin: 08/23/19 00:19 Dose: 30 mg - Exam General: Alert, Oriented Neck: Supple Lungs: Clear to Auscultation, Normal Respiratory Effort Cardiovascular: Regular Rate, Regular Rhythm GI/Abdominal Exam: Normal Bowel Sounds, Soft, No Distention. No: Non-Tender ( Nontender on palpation) Extremities: No Pedal Edema Skin: Warm, Dry Psy/Mental Status: Alert, Normal Affect, Normal Mood Sepsis Event Note - Evaluation Sepsis Screening Result: No Definite Risk - Focused Exam Vital Signs: Vital Signs Temp Pulse Resp BP BP Pulse Ox Pulse Ox 08/23/19 07:31 98.7 F 63 16 93/42 L 98 08/23/19 05:14 99.3 F 08/23/19 03:13 100 100 08/23/19 02:26 100.1 F 70 18 106/53 L 104/55 L 100 08/23/19 00:00 98.6 F 66 24 H 105/56 L 100 Date Exam was Performed: 08/23/19 Time Exam was Performed: 11:17 - Problem List & Annotations (1) Pancreatitis SNOMED Code(s): 34672350 Code(s): K85.90 - ACUTE PANCREATITIS WITHOUT NECROSIS OR INFECTION, UNSP Status: Acute Current Visit: No Qualifiers: Chronicity: acute Pancreatitis type: unspecified pancreatitis type Acute pancreatitis complication: unspecified Qualified Code(s): K85.90 - Acute pancreatitis without necrosis or infection, unspecified - Problem List Review Problem List Initiated/Reviewed/Updated: Yes - Plan Plan:: This is a 44-year-old female with decompensated alcoholic liver cirrhosis, ascites, and esophageal varices, history of SBP many hospitalization with SBP, gets followed with GI at [facility] who presents to ED at [place] with Abdominal pain and nausea. [place] [address] and Amylase of 1212. Pt also had CT abd/Pelvis and that showed: Pancreatic head edema, Fluid in the lesser sac. suspect acute pancreatitis, no acute cholecystitis, no apparent ductal dilatation., No common bile duct stone. she is admitted for acute pancreatitis. she is denying use of alcohol and any over the counter medication. she graded the pain as 10/10 with no nausea or vomiting or Diarrhea. Impression and Plan: 1. Acute Pancreatitis: The etiology not clear, she had no recent alcohol use, there is cholelithiasis without cholecystitis, has normal liver enzymes -Will manage conservatively -Will continue LR at 125 ml/hr -Will control pain with Dilaudid - clear liquid -Check BMP, liver enzymes and Lipase again in AM -Will not start her on abx now, no fever or leukocytosis, Follow culture If liver enzymes are increasing or lipase is not coming down consider further imaging with MRCP or ERCP 2. History of decompensated liver cirrhosis: will continue lactulose and Rifaximin 3. Abdominal Pain: This is secondary to acute pancreatitis -Will continue IVF and pain control with Dilaudid DVT propphylaxis: Continue Subq heparin
[2019-08-23] MEDS: URSODIOL 300 MG PO SCH (21:50)
[2019-08-24] MEDS: HYDROmorphone 1 MG/ML Syringe IVPUSH PRN ×3 (01:42→11:23)
[2019-08-24] MEDS: Lactated Ringers 1,000 ML IV SCH ×3 (03:17→21:20)
[2019-08-24] MEDS: Pantoprazole 40 MG Tab.CR PO SCH (05:20)
[2019-08-24 06:52] LABS: ANION GAP 11.8 mEq/L (7-13); CHLORIDE,CL 104 mmol/L (98-107); SODIUM,NA 137 mmol/L (136-145)
[2019-08-24] MEDS: Rifaximin 550 MG Tab PO SCH ×2 (08:38→21:21)
[2019-08-24] MEDS: Lactulose Soln 10 GM/15 ML 30 ML UD Cup PO SCH ×3 (08:38→21:22)
[2019-08-24] MEDS: Furosemide 20 MG Tab PO SCH (08:38)
[2019-08-24] MEDS: Spironolactone 25 MG Tab PO SCH (08:38)
[2019-08-24] MEDS: Folic Acid 1 MG Tab PO SCH (08:38)
[2019-08-24] MEDS: URSODIOL 300 MG PO SCH ×2 (08:39→21:21)
[2019-08-24] MEDS: Ondansetron 4 MG/2 ML SDV IVPUSH PRN (08:53)
--- NOTE | 2019-08-24 10:26 | PCM.PN ---
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 The patient says she has not been drinking lately. She was complaining of moderate to severe mid abdominal pain. No radiation. No associated fever or chills. Started on the day of admission. This has significantly improved. The pain almost resolved. Has been tolerating clear liquid diet. Nausea and vomiting significantly improved Functional Status: Reports: Pain Controlled, Tolerating Diet - Review of Systems General: Denies: Fever, Weakness Pulmonary: Denies: Shortness of Breath Cardiovascular: Denies: Chest Pain, Edema Genitourinary: Denies: Dysuria - Patient Data Vitals - Most Recent: Last Vital Signs Temp 98.7 F 08/24/19 07:53 Pulse 64 08/24/19 07:53 Resp 16 08/24/19 07:53 BP 91/43 L 08/24/19 07:53 Pulse Ox 98 08/24/19 07:53 Weight - Most Recent: 154 lb 3.2 oz I&O - Last 24 Hours: Intake & Output 08/23/19 08/24/19 08/24/19 22:59 06:59 14:59 Intake Total 360 3369 Output Total 900 1350 Balance -540 2018 Lab Results Last 24 Hours: Laboratory Results - last 24 hr 08/24/19 08/24/19 Range/Units 06:15 06:15 WBC 5.7 (5.0-10.0) 10^3/uL RBC 2.72 L (4.2-5.4) 10^6/uL Hgb 8.8 L (12.0-16.0) g/dL Hct 25.2 L (37.0-47.0) % MCV 92.6 (80-100) fL MCH 32.4 (27.0-34.0) pg MCHC 34.9 (33.0-35.0) g/dL Plt Count 76 L (150-450) 10^3/uL Neut % (Auto) 76.9 H (42.2-75.2) % Lymph % (Auto) 9.0 L (20.5-50.1) % [place] % (Auto) 9.0 H (2-8) % Eos % (Auto) 4.2 H (1.0-3.0) % Baso % (Auto) 0.9 (0.0-1.0) % Sodium 137 (136-145) mmol/L Potassium 3.8 (3.5-5.1) mmol/L Chloride 104 (98-107) mmol/L Carbon Dioxide 25 (21-32) mmol/L Anion Gap 11.8 (7-13) mEq/L BUN 16 (7-18) mg/dL Creatinine 0.79 (0.55-1.02) mg/dL Est Cr Clr Drug Dosing 82.62 mL/min Estimated GFR (MDRD) > 60 Glucose 80 (74-99) mg/dL Calcium 7.3 L (8.5-10.1) mg/dL Lipase 350 (73-393) U/L Claude Results Last 24 Hours: Microbiology 08/23/19 00:37 Urine Culture - Preliminary Urine, Clean Catch NO GROWTH AFTER 1 DAY Med Orders - Current: Current Medications Docusate Sodium (Colace) 100 mg PO DAILY PRN PRN Reason: Constipation Folic Acid (Folic Acid) 1 mg PO DAILY [facility] Last Admin: 08/24/19 08:38 Dose: 1 mg Furosemide (Lasix) 20 mg PO DAILY [facility] Last Admin: 08/24/19 08:38 Dose: 20 mg Hydromorphone HCl (Dilaudid) 1 mg IVPUSH Q4H PRN PRN Reason: Abdominal Pain Last Admin: 08/24/19 05:19 Dose: 1 mg Lactated Ringer's (Ringers, Lactated) 1,000 mls @ 125 mls/hr IV ASDIRECTED [facility] Last Admin: 08/24/19 03:17 Dose: 125 mls/hr Lactulose (Cephulac) 20 gm PO TID [facility] Last Admin: 08/24/19 08:38 Dose: 20 gm Ursodiol 300 MgOwn (Med) 300 mg PO BID [facility] Last Admin: 08/24/19 08:39 Dose: 300 mg Ondansetron HCl (Zofran) 4 mg IVPUSH Q4H PRN PRN Reason: Nausea/Vomiting Last Admin: 08/24/19 08:53 Dose: 4 mg Pantoprazole Sodium (Protonix) 40 mg PO ACBREAKFAST [facility] Last Admin: 08/24/19 05:20 Dose: 40 mg Rifaximin (Xifaxan) 550 mg PO BID [facility] Last Admin: 08/24/19 08:38 Dose: 550 mg Spironolactone (Aldactone) 25 mg PO DAILY [facility] Last Admin: 08/24/19 08:38 Dose: 25 mg Discontinued Medications Acetaminophen (Tylenol) 650 mg PO Q4H PRN PRN Reason: Pain (mild 1-3 )/fever Heparin Sodium (Porcine) (Heparin Sodium) 5,000 units SUBCUT Q8H [facility] Last Admin: 08/23/19 07:47 Dose: Not Given Hydromorphone HCl (Dilaudid) 0.5 mg IVPUSH ONETIME ONE Stop: 08/23/19 02:04 Last Admin: 08/23/19 02:15 Dose: 0.5 mg Iopamidol (Isovue-300 (61%)) 100 ml IVPUSH ONETIME ONE Stop: 08/23/19 00:56 Last Admin: 08/23/19 01:04 Dose: 100 ml Ketorolac Tromethamine (Toradol) 30 mg IVPUSH ONETIME ONE Stop: 08/23/19 00:17 Last Admin: 08/23/19 00:19 Dose: 30 mg - Exam General: Alert, Oriented Neck: Supple Lungs: Clear to Auscultation, Normal Respiratory Effort Cardiovascular: Regular Rate, Regular Rhythm GI/Abdominal Exam: Normal Bowel Sounds, Soft, Non-Tender, No Distention Extremities: No Pedal Edema Sepsis Event Note - Evaluation Sepsis Screening Result: No Definite Risk - Focused Exam Vital Signs: Vital Signs Temp Pulse Resp BP Pulse Ox 08/24/19 07:53 98.7 F 64 16 91/43 L 98 08/24/19 04:00 99 F 64 18 105/55 L 98 08/24/19 00:00 99.5 F 62 20 100/50 L 99 Date Exam was Performed: 08/24/19 Time Exam was Performed: 10:24 - Problem List & Annotations (1) Pancreatitis SNOMED Code(s): 57762988 Code(s): K85.90 - ACUTE PANCREATITIS WITHOUT NECROSIS OR INFECTION, UNSP Status: Acute Current Visit: No Qualifiers: Chronicity: acute Pancreatitis type: unspecified pancreatitis type Acute pancreatitis complication: unspecified Qualified Code(s): K85.90 - Acute pancreatitis without necrosis or infection, unspecified - Problem List Review Problem List Initiated/Reviewed/Updated: Yes - Plan Plan:: This is a 44-year-old female with decompensated alcoholic liver cirrhosis, ascites, and esophageal varices, history of SBP many hospitalization with SBP, gets followed with GI at [facility] who presents to ED at [place] with Abdominal pain and nausea. Pt had labs [place] [address] and Amylase of 1212. Pt also had CT abd/Pelvis and that showed: Pancreatic head edema, Fluid in the lesser sac. suspect acute pancreatitis, no acute cholecystitis, no apparent ductal dilatation., No common bile duct stone. she is admitted for acute pancreatitis. she is denying use of alcohol and any over the counter medication. she graded the pain as 10/10 with no nausea or vomiting or Diarrhea. Impression and Plan: 1. Acute Pancreatitis: The etiology not clear, she had no recent alcohol use, there is cholelithiasis without cholecystitis, has normal liver enzymes -Will manage conservatively, she appears much improved both clinically and according to laboratory results -Will continue LR at 125 ml/hr -Will control pain with Dilaudid - clear liquid diet -Check BMP, liver enzymes and Lipase again in AM -Will not start her on abx now, no fever or leukocytosis, Follow culture Given the significant improvement I do not think urgent MRCP or ERCP is necessary. Consider follow-up with GI as outpatient 2. History of decompensated liver cirrhosis: will continue lactulose and Rifaximin 3. Abdominal Pain: This is secondary to acute pancreatitis -Will continue IVF and pain control with Dilaudid DVT propphylaxis: Continue Subq heparin
[2019-08-24] MEDS ORDERED: Sodium Chloride 0.9% 10 ML Syringe FLUSH PRN (12:15)
[2019-08-25] MEDS: HYDROmorphone 1 MG/ML Syringe IVPUSH PRN (01:21)
[2019-08-25] MEDS: Lactated Ringers 1,000 ML IV SCH (05:37)
[2019-08-25] MEDS: Pantoprazole 40 MG Tab.CR PO SCH (05:46)
[2019-08-25 08:12] VITALS: BP 104/45; PULSE 70
[2019-08-25 08:34] LABS: ANION GAP 9.6 mEq/L (7-13); CHLORIDE,CL 106 mmol/L (98-107); SODIUM,NA 136 mmol/L (136-145)
[2019-08-25] MEDS: Furosemide 20 MG Tab PO SCH (08:53)
[2019-08-25] MEDS: Lactulose Soln 10 GM/15 ML 30 ML UD Cup PO SCH (08:53)
[2019-08-25] MEDS: Folic Acid 1 MG Tab PO SCH (08:53)
[2019-08-25] MEDS: Rifaximin 550 MG Tab PO SCH (08:53)
[2019-08-25] MEDS: Spironolactone 25 MG Tab PO SCH (08:53)
[2019-08-25] MEDS: URSODIOL 300 MG PO SCH (09:02)
--- NOTE | 2019-08-25 11:58 | PCM.DCSUM1 ---
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 She was found to have acute pancreatitis. She was monitored and IV ideation and analgesics. She responded to treatment. Lipase trended down. She is tolerating regular diet. She will discharged home in stable condition with plan to follow up with PCP. Diagnosis: Stroke: No - Discharge Data Discharge Date: 08/25/19 Discharge Disposition: Home, Self-Care 01 Condition: Good - Referral to Home Health Primary Care Physician: Stacey Ledbetter MD - Patient Instructions Diet: Regular Diet as Tolerated Notify Provider of: Fever, Increased Pain, Nausea and/or Vomiting - Discharge Plan *PRESCRIPTION DRUG MONITORING PROGRAM REVIEWED*: Not Applicable *COPY OF PRESCRIPTION DRUG MONITORING REPORT IN PATIENT TIKI: Not Applicable Home Medications: Home Meds Ferrous Sulfate [Iron] 325 mg PO BID 05/09/18 [History] Pantoprazole Sodium 40 mg PO DAILY 05/09/18 [History] Folic Acid 1 mg PO DAILY 10/12/18 [History] Furosemide 20 mg PO DAILY 01/04/19 [History] Lactulose [Cephulac] 20 gm PO TID 30 Days #90 cup 01/06/19 [Rx] Spironolactone 25 mg PO DAILY 30 Days #30 tablet 01/06/19 [Rx] Ondansetron [Zofran ODT] 4 mg PO Q6H PRN 03/27/19 [History] Rifaximin [Xifaxan] 550 mg PO BID 03/27/19 [History] ursodioL [Ursodiol] 300 mg PO BID 03/27/19 [History] Oxygen Therapy Mode: Room Air Forms: ED Department Discharge Referrals: PCP,Unobtain [Ordering Only Provider] - - Discharge Summary/Plan Comment DC Time >30 min.: Yes - General Info Date of Service: 08/25/19 Admission Dx/Problem (Free Text: Admission Diagnosis/Problem Admission Diagnosis/Problem Pancreatitis Functional Status: Reports: Pain Controlled - Review of Systems General: Reports: No Symptoms HEENT: Reports: No Symptoms Pulmonary: Reports: No Symptoms Cardiovascular: Reports: No Symptoms Gastrointestinal: Reports: No Symptoms Genitourinary: Reports: No Symptoms Musculoskeletal: Reports: No Symptoms Skin: Reports: No Symptoms Neurological: Reports: No Symptoms Psychiatric: Reports: No Symptoms - Patient Data Vitals - Most Recent: Last Vital Signs Temp 100.0 F 08/25/19 08:00 Pulse 70 08/25/19 08:00 Resp 18 08/25/19 08:00 BP 104/45 L 08/25/19 08:00 Pulse Ox 98 08/25/19 08:00 Weight - Most Recent: 154 lb 3.2 oz I&O - Last 24 hours: Intake & Output 08/24/19 08/25/19 08/25/19 22:59 06:59 14:59 Intake Total 2636 1027 375 Output Total 450 1550 Balance 2186 -523 375 Lab Results - Last 24 hrs: Laboratory Results - last 24 hr 08/25/19 08/25/19 Range/Units 06:26 06:26 WBC 5.6 (5.0-10.0) 10^3/uL RBC 2.64 L (4.2-5.4) 10^6/uL Hgb 8.5 L (12.0-16.0) g/dL Hct 24.4 L (37.0-47.0) % MCV 92.4 (80-100) fL MCH 32.2 (27.0-34.0) pg MCHC 34.8 (33.0-35.0) g/dL Plt Count 70 L (150-450) 10^3/uL Neut % (Auto) 66.1 (42.2-75.2) % Lymph % (Auto) 14.9 L (20.5-50.1) % [place] % (Auto) 9.8 H (2-8) % Eos % (Auto) 8.7 H (1.0-3.0) % Baso % (Auto) 0.5 (0.0-1.0) % Sodium 136 (136-145) mmol/L Potassium 3.6 (3.5-5.1) mmol/L Chloride 106 (98-107) mmol/L Carbon Dioxide 24 (21-32) mmol/L Anion Gap 9.6 (7-13) mEq/L BUN 9 (7-18) mg/dL Creatinine 0.74 (0.55-1.02) mg/dL Est Cr Clr Drug Dosing 88.21 mL/min Estimated GFR (MDRD) > 60 Glucose 79 (74-99) mg/dL Calcium 7.1 L (8.5-10.1) mg/dL Total Bilirubin 1.4 H (0.2-1.0) mg/dL Direct Bilirubin 0.4 H (0.0-0.2) mg/dL Indirect Bilirubin 1.0 AST 21 (15-37) U/L ALT 22 (14-59) U/L Alkaline Phosphatase 58 (46-116) U/L Total Protein 5.5 L (6.4-8.2) g/dL Albumin 2.4 L (3.4-5.0) g/dL Globulin 3.1 Albumin/Globulin Ratio 0.77 Lipase 159 (73-393) U/L SUKI Results - Last 24 hrs: Microbiology 08/23/19 00:37 Urine Culture - Final Urine, Clean Catch Med Orders - Current: Current Medications Docusate Sodium (Colace) 100 mg PO DAILY PRN PRN Reason: Constipation Folic Acid (Folic Acid) 1 mg PO DAILY [facility] Last Admin: 08/25/19 08:53 Dose: 1 mg Furosemide (Lasix) 20 mg PO DAILY [facility] Last Admin: 08/25/19 08:53 Dose: 20 mg Hydromorphone HCl (Dilaudid) 1 mg IVPUSH Q4H PRN PRN Reason: Abdominal Pain Last Admin: 08/25/19 01:21 Dose: 1 mg Lactated Ringer's (Ringers, Lactated) 1,000 mls @ 125 mls/hr IV ASDIRECTED [facility] Last Admin: 08/25/19 05:37 Dose: 125 mls/hr Lactulose (Cephulac) 20 gm PO TID [facility] Last Admin: 08/25/19 08:53 Dose: 20 gm Ursodiol 300 MgOwn (Med) 300 mg PO BID [facility] Last Admin: 08/25/19 09:02 Dose: 300 mg Ondansetron HCl (Zofran) 4 mg IVPUSH Q4H PRN PRN Reason: Nausea/Vomiting Last Admin: 08/24/19 08:53 Dose: 4 mg Pantoprazole Sodium (Protonix) 40 mg PO ACBREAKFAST [facility] Last Admin: 08/25/19 05:46 Dose: 40 mg Rifaximin (Xifaxan) 550 mg PO BID [facility] Last Admin: 08/25/19 08:53 Dose: 550 mg Sodium Chloride (Saline Flush) 10 ml FLUSH ASDIRECTED PRN PRN Reason: Keep Vein Open Spironolactone (Aldactone) 25 mg PO DAILY [facility] Last Admin: 08/25/19 08:53 Dose: 25 mg Discontinued Medications Acetaminophen (Tylenol) 650 mg PO Q4H PRN PRN Reason: Pain (mild 1-3 )/fever Heparin Sodium (Porcine) (Heparin Sodium) 5,000 units SUBCUT Q8H [facility] Last Admin: 08/23/19 07:47 Dose: Not Given Hydromorphone HCl (Dilaudid) 0.5 mg IVPUSH ONETIME ONE Stop: 08/23/19 02:04 Last Admin: 08/23/19 02:15 Dose: 0.5 mg Iopamidol (Isovue-300 (61%)) 100 ml IVPUSH ONETIME ONE Stop: 08/23/19 00:56 Last Admin: 08/23/19 01:04 Dose: 100 ml Ketorolac Tromethamine (Toradol) 30 mg IVPUSH ONETIME ONE Stop: 08/23/19 00:17 Last Admin: 08/23/19 00:19 Dose: 30 mg - Exam General: Reports: Alert, Oriented HEENT: Reports: Pupils Equal, Pupils Reactive, EOMI, Mucous Membr. Moist/[place] Neck: Reports: Supple Lungs: Reports: Clear to Auscultation, Normal Respiratory Effort Cardiovascular: Reports: Regular Rate, Regular Rhythm GI/Abdominal Exam: Normal Bowel Sounds, Soft, Non-Tender, No Organomegaly, No Distention, No Abnormal Bruit, No Mass, Pelvis Stable (Female) Exam: Normal External Exam, Normal Speculum Exam, Normal Bimanual Exam Rectal (Female) Exam: Normal Exam, Normal Rectal Tone Back Exam: Reports: Normal Inspection, Full Range of Motion Extremities: Normal Inspection, Normal Range of Motion, Non-Tender, No Pedal Edema, Normal Capillary Refill Skin: Reports: Warm, Dry, Intact Wound/Incisions: Reports: Healing Well Neurological: Reports: No New Focal Deficit Psy/Mental Status: Reports: Alert, Normal Affect, Normal Mood
== END 2019-08-25 13:30 | disposition home or self-care (01) | DRG 282 ==
LOC: DL.ED 23:22 → DL.MS 08-23 02:06 → UNDOADMIN 08-23 02:06 → DL.MS 08-23 03:12
PROVIDERS: ADMIT Internal Medicine Nephrology; ATTEND Student in an Organized Health Care Education/Training Program
DX: K85.90 Acute pancreatitis without necrosis or infection, unspecified (principal); K70.31 Alcoholic cirrhosis of liver with ascites; F10.288 Alcohol dependence with other alcohol-induced disorder; K80.20 Calculus of gallbladder without cholecystitis without obstruction; K21.9 Gastro-esophageal reflux disease without esophagitis; D50.9 Iron deficiency anemia, unspecified; Z88.8 Allergy status to other drugs, medicaments and biological substances; Z79.899 Other long term (current) drug therapy
CPT/HCPCS: 36415; 74177; 80048; 80053; 80076; 80305-QW; 80307; 81001; 81025; 82140; 82150; 83605; 83690; 84478; 85025; 87086; 96374; 99285-25; A9270-GY; J1170; J1885; J2405; J7120; Q9967

== ENCOUNTER 2019-10-14 16:35 | Emergency (ER) | payer BC ==
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
[2019-10-14 14:57] LABS: ANION GAP 15.7 mEq/L (7-13); CHLORIDE,CL 108 mmol/L (98-107); SODIUM,NA 145 mmol/L (136-145)
[2019-10-14 15:48] VITALS: BP 86/41; PULSE 86
[~2019-10-14 16:35] MED LIST: Ketorolac 30 MG/ML SDV IVPUSH ONE
== END 2019-10-14 17:13 | disposition home or self-care (01) ==
LOC: DL.ED 16:35
DX: M54.5 Low back pain (principal); K21.9 Gastro-esophageal reflux disease without esophagitis; Z88.6 Allergy status to analgesic agent; Z91.048 Other nonmedicinal substance allergy status; Z88.8 Allergy status to other drugs, medicaments and biological substances; Z79.899 Other long term (current) drug therapy
CPT/HCPCS: 36415; 71046; 72080; 80053; 80305; 81001; 85025; 87086; 96372; 96374; 99284; J1885; J2360

== ENCOUNTER 2019-12-27 17:15 | Emergency (ER) | payer BC, MEDICAID | END 2019-12-27 23:04 | disposition left against medical advice (07) | LOC: DL.ED 17:15 | DX: Z53.21 Procedure and treatment not carried out due to patient leaving prior to being seen by health care provider (principal) | CPT/HCPCS: U0002 ==

== ENCOUNTER 2019-12-28 22:33 | Emergency (ER) | payer MEDICAID ==
--- NOTE | 2019-12-28 22:29 | EDM.PDOC ---
ED HPI GENERAL MEDICAL PROBLEM - General Chief Complaint: Abdominal Pain Stated Complaint: AMBULANCE Time Seen by Provider: 12/28/19 23:00 Source of Information: Reports: Patient History Limitations: Reports: No Limitations - History of Present Illness INITIAL COMMENTS - FREE TEXT/NARRATIVE: ED with c/o abdominal pain and distension. Hx cirrhosis. Admits not taking meds for past 2-3 weeks. Reports cannot afford meds now that is not working. Denies vomiting blood or blood in stool. Last ETOH on Friday. Presented last night to ED but left without being seen. Fever tonight. Unsure if COVID exposure, last night reported she had been exposed tonight doesn't think so. No cough. Bilateral Upper Abdominal Pain Score (Numeric/FACES): 8 - Related Data Allergies Allergy/AdvReac Type Severity Reaction Status Date / Time acetaminophen Allergy Hives Verified 12/28/19 22:34 [From Comtrex Cold-Cough] dextromethorphan Allergy Hives Verified 12/28/19 22:34 [From Comtrex Cold-Cough] phenylephrine Allergy Hives Verified 12/28/19 22:34 [From Comtrex Cold-Cough] wool Allergy itchy Uncoded 12/28/19 22:34 Home Meds: Home Meds Ferrous Sulfate [Iron] 325 mg PO BID 05/09/18 [History] Pantoprazole Sodium 40 mg PO DAILY 05/09/18 [History] Folic Acid 1 mg PO DAILY 10/12/18 [History] Furosemide 20 mg PO DAILY 01/04/19 [History] Lactulose [Cephulac] 20 gm PO TID 30 Days #90 cup 01/06/19 [Rx] Spironolactone 25 mg PO DAILY 30 Days #30 tablet 01/06/19 [Rx] Ondansetron [Zofran ODT] 4 mg PO Q6H PRN 03/27/19 [History] Rifaximin [Xifaxan] 550 mg PO BID 03/27/19 [History] ursodioL [Ursodiol] 300 mg PO BID 03/27/19 [History] Past Medical History - Past Health History Medical/Surgical History: Denies Medical/Surgical History HEENT History: Reports: Epistaxis, Impaired Vision Other HEENT History: wears glasses Cardiovascular History: Reports: None Respiratory History: Reports: None Gastrointestinal History: Reports: Cholelithiasis, Cirrhosis, GERD, GI Bleed Other Gastrointestinal History: liver cirrhosis, gallbladder polyps Genitourinary History: Reports: None COOPERATIVE EDUCATION COORDINATOR History: Reports: Other COOPERATIVE EDUCATION COORDINATOR History: 05/09/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 martínez fx. Neurological History: Reports: None Psychiatric History: Reports: Addiction Other Psychiatric History: Etoh addiction Endocrine/Metabolic History: Reports: None Hematologic History: Reports: Anemia, Iron Deficiency Immunologic History: Reports: None Oncologic (Cancer) History: Reports: None Dermatologic History: Reports: None - Infectious Disease History Infectious Disease History: Reports: None - Past Surgical History GI Surgical History: Reports: None Social & Family History - Family History Family Medical History: Noncontributory Cardiac: Reports: [place] Endocrine/Metabolic: Reports: Diabetes, type II - Caffeine Use Caffeine Use: Reports: Coffee Caffeine Use Comment: occasional use - Living Situation & Occupation Living situation: Reports: with Family Occupation: Unemployed ED ROS GENERAL - Review of Systems Review Of Systems: Comprehensive ROS is negative, except as noted in HPI. ED EXAM, GI/ABD - Physical Exam Exam: See Below Exam Limited By: No Limitations General Appearance: Alert, Mild Distress Eyes: Bilateral: EOMI Ears: Normal External Exam, Normal TMs Throat/Mouth: Normal Inspection, Normal Lips Head: Atraumatic, Normocephalic Neck: Normal Inspection, Full Range of Motion Respiratory/Chest: No Respiratory Distress, Lungs Clear, Normal Breath Sounds Cardiovascular: Normal Peripheral Pulses, Regular Rate, Rhythm. No: No Edema (3+) GI/Abdominal Exam: Normal Bowel Sounds, Distended Back Exam: Full Range of Motion Extremities: Pedal Edema Neurological: Alert, Oriented Psychiatric: Flat Affect Skin Exam: Warm, Dry Course - Vital Signs Last Recorded V/S: Last Vital Signs Temp 99.5 F 12/28/19 22:53 Pulse 71 12/28/19 22:53 Resp 18 12/28/19 22:53 BP 103/56 L 12/28/19 22:53 Pulse Ox 100 12/28/19 22:53 - Orders/Labs/Meds Orders: Active Orders 24 hr Category Date Time Status CULTURE BLOOD [BC] Stat Lab 12/28/19 22:45 Received CULTURE BLOOD [BC] Stat Lab 12/28/19 23:19 Received Blood Culture x2 Reflex Set [OM.PC] Stat Oth 12/28/19 22:25 Ordered Labs: Laboratory Tests 12/28/19 12/28/19 12/28/19 Range/Units 22:34 22:45 22:45 WBC 5.9 (5.0-10.0) 10^3/uL RBC 2.70 L (4.2-5.4) 10^6/uL Hgb 7.2 L D (12.0-16.0) g/dL Hct 24.2 L (37.0-47.0) % MCV 89.6 (80-100) fL MCH 26.7 L (27.0-34.0) pg MCHC 29.8 L (33.0-35.0) g/dL Plt Count 108 L (150-450) 10^3/uL Neut % (Auto) 67.6 (42.2-75.2) % Lymph % (Auto) 10.3 L (20.5-50.1) % Clare % (Auto) 13.8 H (2-8) % Eos % (Auto) 4.9 H (1.0-3.0) % Baso % (Auto) 3.4 H (0.0-1.0) % PT 13.3 H (9.0-12.0) SEC INR 1.4 H (0.9-1.2) Sodium (136-145) mmol/L Potassium (3.5-5.1) mmol/L Chloride (98-107) mmol/L Carbon Dioxide (21-32) mmol/L Anion Gap (7-13) mEq/L BUN (7-18) mg/dL Creatinine (0.55-1.02) mg/dL Est Cr Clr Drug Dosing Estimated GFR (MDRD) BUN/Creatinine Ratio (No establ ref range) Glucose (74-99) mg/dL Lactic Acid (0.4-2.0) mmol/L Calcium (8.5-10.1) mg/dL Magnesium (1.8-2.4) mg/dL Total Bilirubin (0.2-1.0) mg/dL AST (15-37) U/L ALT (14-59) U/L Alkaline Phosphatase (46-116) U/L Ammonia (11-32) umol/L C-Reactive Protein (0.0-0.9) mg/dL B-Natriuretic Peptide (0-100) pg/ml Total Protein (6.4-8.2) g/dL Albumin (3.4-5.0) g/dL Globulin Albumin/Globulin Ratio Amylase (25-115) U/L Lipase (73-393) U/L COVID-19 (GAURI) Negative (NEGATIVE) 12/28/19 12/28/19 12/28/19 Range/Units 22:45 22:45 23:19 WBC (5.0-10.0) 10^3/uL RBC (4.2-5.4) 10^6/uL Hgb (12.0-16.0) g/dL Hct (37.0-47.0) % MCV (80-100) fL MCH (27.0-34.0) pg MCHC (33.0-35.0) g/dL Plt Count (150-450) 10^3/uL Neut % (Auto) (42.2-75.2) % Lymph % (Auto) (20.5-50.1) % Clare % (Auto) (2-8) % Eos % (Auto) (1.0-3.0) % Baso % (Auto) (0.0-1.0) % PT (9.0-12.0) SEC INR (0.9-1.2) Sodium 135 L D (136-145) mmol/L Potassium 4.0 (3.5-5.1) mmol/L Chloride 103 (98-107) mmol/L Carbon Dioxide 23 (21-32) mmol/L Anion Gap 13.0 (7-13) mEq/L BUN 11 (7-18) mg/dL Creatinine 0.75 (0.55-1.02) mg/dL Est Cr Clr Drug Dosing TNP Estimated GFR (MDRD) > 60 BUN/Creatinine Ratio 14.7 (No establ ref range) Glucose 86 (74-99) mg/dL Lactic Acid 1.9 (0.4-2.0) mmol/L Calcium 7.3 L (8.5-10.1) mg/dL Magnesium 1.8 (1.8-2.4) mg/dL Total Bilirubin 2.9 H (0.2-1.0) mg/dL AST 80 H (15-37) U/L ALT 43 (14-59) U/L Alkaline Phosphatase 119 H (46-116) U/L Ammonia 48 H (11-32) umol/L C-Reactive Protein 1.1 H (0.0-0.9) mg/dL B-Natriuretic Peptide 35 (0-100) pg/ml Total Protein 7.0 (6.4-8.2) g/dL Albumin 2.3 L (3.4-5.0) g/dL Globulin 4.7 Albumin/Globulin Ratio 0.49 Amylase 63 (25-115) U/L Lipase 137 (73-393) U/L COVID-19 (GAURI) (NEGATIVE) Meds: Medications Discontinued Medications Generic Name Dose Route Start Last Admin Trade Name Williamsq PRN Reason Stop Dose Admin Fentanyl 50 mcg 12/29/19 00:49 12/29/19 01:12 Sublimaze IVPUSH 12/29/19 00:50 50 mcg ONETIME ONE Administration Iopamidol 100 ml 12/28/19 23:24 12/28/19 23:58 Isovue-300 (61%) IVPUSH 12/28/19 23:25 75 ml ONETIME ONE Administration Ondansetron HCl 4 mg 12/29/19 00:49 12/29/19 01:11 Zofran IVPUSH 12/29/19 00:50 4 mg ONETIME ONE Administration Departure - Departure Time of Disposition: 01:25 Disposition: DC/Tfer to Acute Hospital 02 Condition: Undetermined Clinical Impression: Noncompliance w/medication treatment due to intermit use of medication Cirrhosis Qualifiers: Hepatic cirrhosis type: alcoholic cirrhosis Ascites presence: with ascites Qualified Code(s): K70.31 - Alcoholic cirrhosis of liver with ascites Ascites Qualifiers: Ascites type: due to alcoholic cirrhosis Qualified Code(s): K70.31 - Alcoholic cirrhosis of liver with ascites - Discharge Information *PRESCRIPTION DRUG MONITORING PROGRAM REVIEWED*: No *COPY OF PRESCRIPTION DRUG MONITORING REPORT IN PATIENT TIKI: No Forms: ED Department Discharge Sepsis Event Note (ED) - Focused Exam Vital Signs: Vital Signs Temp Pulse Resp BP Pulse Ox 12/28/19 22:53 99.5 F 71 18 103/56 L 100 - My Orders Last 24 Hours: My Active Orders 12/28/19 22:25 Blood Culture x2 Reflex Set [OM.PC] Stat 12/28/19 22:45 CULTURE BLOOD [BC] Stat 12/28/19 23:19 CULTURE BLOOD [BC] Stat - Assessment/Plan Last 24 Hours: My Active Orders 12/28/19 22:25 Blood Culture x2 Reflex Set [OM.PC] Stat 12/28/19 22:45 CULTURE BLOOD [BC] Stat 12/28/19 23:19 CULTURE BLOOD [BC] Stat
[2019-12-28 23:04] VITALS: BP 103/56; PULSE 71
[2019-12-28 23:13] LABS: CHLORIDE,CL 103 mmol/L (98-107); SODIUM,NA 135 mmol/L (136-145)
[2019-12-28] MEDS ORDERED: Iopamidol 612 MG/ML 100 ML Bottle IVPUSH ONE (23:24)
--- NOTE | 2019-12-29 00:17 | CT ---
PROCEDURE INFORMATION: Exam: CT Abdomen And Pelvis With Contrast Exam date and time: 12/28/2019 11:38 PM Age: 44 years old Clinical indication: Other: Abdominal distention; Additional info: Abdominal pain distension TECHNIQUE: Imaging protocol: Computed tomography of the abdomen and pelvis with intravenous contrast. Radiation optimization: All CT scans at this facility use at least one of these dose optimization techniques: automated exposure control; mA and/or kV adjustment per patient size (includes targeted exams where dose is matched to clinical indication); or iterative reconstruction. Contrast material: ISOVUE; Contrast volume: 75 ml; Contrast route: INTRAVENOUS (IV); COMPARISON: MR Abdomen wo Cont 09/02/2019 9:01 AM FINDINGS: Mediastinal space: Small hiatal hernia. Liver: Liver cirrhosis. Gallbladder and bile ducts: Cholelithiasis. Pancreas: Normal. No ductal dilation. Spleen: Normal. No splenomegaly. Adrenals: Normal. No mass. Kidneys and ureters: Normal. No hydronephrosis. Stomach and bowel: Mild diffuse small bowel wall thickening. Diffuse colonic wall thickening. Appendix: No evidence of appendicitis. Intraperitoneal space: Moderate intra-abdominal and pelvic ascites. Diffuse mesenteric edema and stranding. Vasculature: Unremarkable. No abdominal aortic aneurysm. Lymph nodes: Unremarkable. No enlarged lymph nodes. Bladder: Unremarkable as visualized. Reproductive: Unremarkable as visualized. Bones/joints: Unremarkable. No acute fracture. Soft tissues: Unremarkable. IMPRESSION: 1. Liver cirrhosis. 2. Cholelithiasis. 3. Mild diffuse small bowel wall thickening. Finding can be associated with enteritis versus hypoproteinemia secondary to liver disease. 4. Diffuse colonic wall thickening. Findings could be secondary to diffuse colitis versus portal colopathy. 5. Moderate intra-abdominal and pelvic ascites. Diffuse mesenteric edema and stranding.
[2019-12-29] MEDS ORDERED: Ondansetron 4 MG/2 ML SDV IVPUSH ONE (00:49)
[2019-12-29] MEDS ORDERED: fentaNYL 100 MCG/2 ML SDV IVPUSH ONE (00:49)
== END 2019-12-29 01:25 ==
LOC: DL.ED 22:33
DX: K70.31 Alcoholic cirrhosis of liver with ascites (principal); D50.9 Iron deficiency anemia, unspecified; K21.9 Gastro-esophageal reflux disease without esophagitis; Z91.14 Patient's other noncompliance with medication regimen; Z88.6 Allergy status to analgesic agent; Z88.8 Allergy status to other drugs, medicaments and biological substances; Z91.048 Other nonmedicinal substance allergy status; Z20.828 Contact with and (suspected) exposure to other viral communicable diseases
CPT/HCPCS: 36415; 74177; 80053; 82140; 82150; 82272; 83605; 83690; 83735; 83880; 85025; 85610; 86140; 87040; 87635; 96374; 96375; 99284; 99285; J2405; J3010; Q9967; U0002

== ENCOUNTER 2020-01-28 09:15 | Emergency (ER) | payer MEDICAID, OTHER ==
[2020-01-28 09:40] VITALS: BP 124/66; PULSE 94
--- NOTE | 2020-01-28 10:49 | EDM.PDOC ---
ED HPI GENERAL MEDICAL PROBLEM - General Chief Complaint: General Stated Complaint: [id number] COUGHING HEADACHE BODY ACHES STOMACH PAIN Time Seen by Provider: 01/28/20 10:30 - History of Present Illness INITIAL COMMENTS - FREE TEXT/NARRATIVE: 45 year old female who presents to the ER with complaints of bodyaches, fever and a runny nose two days. She reports abdominal pain that has resolved. States her nephew was home one day who tested positive for COVID-19 but she did have any direct contact with him. She states she thinks she has COVID-19. She is non specific about her symptoms. She has not tried anything. She denies any he adaches, dizziness, cough, SOB, CP. palpitations, or leg swelling. Generalized Pain Score (Numeric/FACES): 10 - Related Data Allergies Allergy/AdvReac Type Severity Reaction Status Date / Time acetaminophen Allergy Hives Verified 01/28/20 09:36 [From Comtrex Cold-Cough] dextromethorphan Allergy Hives Verified 01/28/20 09:36 [From Comtrex Cold-Cough] phenylephrine Allergy Hives Verified 01/28/20 09:36 [From Comtrex Cold-Cough] wool Allergy itchy Uncoded 01/28/20 09:36 Home Meds: Home Meds Ferrous Sulfate [Iron] 325 mg PO BID 05/09/18 [History] Pantoprazole Sodium 40 mg PO DAILY 05/09/18 [History] Folic Acid 1 mg PO DAILY 10/12/18 [History] Furosemide 20 mg PO DAILY 01/04/19 [History] Lactulose [Cephulac] 20 gm PO TID 30 Days #90 cup 01/06/19 [Rx] Spironolactone 25 mg PO DAILY 30 Days #30 tablet 01/06/19 [Rx] Ondansetron [Zofran ODT] 4 mg PO Q6H PRN 03/27/19 [History] Rifaximin [Xifaxan] 550 mg PO BID 03/27/19 [History] ursodioL [Ursodiol] 300 mg PO BID 03/27/19 [History] Past Medical History - Past Health History Medical/Surgical History: Denies Medical/Surgical History HEENT History: Reports: Epistaxis, Impaired Vision Other HEENT History: wears glasses Cardiovascular History: Reports: None Respiratory History: Reports: None Gastrointestinal History: Reports: Cholelithiasis, Cirrhosis, GERD, GI Bleed Other Gastrointestinal History: liver cirrhosis, gallbladder polyps Genitourinary History: Reports: None ASSOCIATE MANAGER History: Reports: Other ASSOCIATE MANAGER History: 05/09/2018 states she is on her monthly and flow has been heavy Musculoskeletal History: Reports: None Other Musculoskeletal History: Rt. martínez fx. Neurological History: Reports: None Psychiatric History: Reports: Addiction Other Psychiatric History: Etoh addiction Endocrine/Metabolic History: Reports: None Hematologic History: Reports: Anemia, Iron Deficiency Immunologic History: Reports: None Oncologic (Cancer) History: Reports: None Dermatologic History: Reports: None - Infectious Disease History Infectious Disease History: Reports: None - Past Surgical History GI Surgical History: Reports: None Social & Family History - Family History Family Medical History: Noncontributory Cardiac: Reports: [place] Endocrine/Metabolic: Reports: Diabetes, type II - Tobacco Use Smoking Status *Q: Never Smoker Second Hand Smoke Exposure: Yes - Caffeine Use Caffeine Use: Reports: Coffee Caffeine Use Comment: occasional use - Recreational Drug Use Recreational Drug Use: No - Living Situation & Occupation Living situation: Reports: with Family Occupation: Unemployed ED ROS GENERAL - Review of Systems Review Of Systems: Comprehensive ROS is negative, except as noted in HPI. ED EXAM, GENERAL - Physical Exam Exam: See Below Exam Limited By: No Limitations General Appearance: Alert, No Apparent Distress Eye Exam: Bilateral Eye: PERRL Ears: Normal External Exam, Normal Canal, Hearing Grossly Normal, Normal TMs Nose: Other (left nostril irritated and patient reports it from constant "blowing" of her nose as it is runny.) Throat/Mouth: Normal Inspection, Normal Lips, Normal Teeth, Normal Gums, Normal Oropharynx, Normal Voice, No Airway Compromise Head: Atraumatic, Normocephalic Neck: Normal Inspection, Supple, Non-Tender, Full Range of Motion Respiratory/Chest: No Respiratory Distress, Lungs Clear, Normal Breath Sounds, No Accessory Muscle Use, Chest Non-Tender Cardiovascular: Normal Peripheral Pulses, Regular Rate, Rhythm, No Edema, No Gallop, No JVD, No Murmur, No Rub Peripheral Pulses: 3+: Posterior Tibial (L), Posterior Tibial (R), Dorsalis Pedis (L), Dorsalis Pedis (R) GI/Abdominal: Normal Bowel Sounds, Soft, Non-Tender, No Mass (Female) Exam: Deferred Rectal (Female) Exam: Deferred Extremities: Normal Capillary Refill Neurological: Alert, Oriented, Normal Gait Psychiatric: Normal Affect, Normal Mood Skin Exam: Warm, Intact Lymphatic: No Adenopathy Course - Vital Signs Last Recorded V/S: Last Vital Signs Temp 100.7 F H 01/28/20 09:36 Pulse 94 01/28/20 09:36 Resp 18 01/28/20 09:36 BP 124/66 01/28/20 09:36 Pulse Ox 100 01/28/20 09:36 - Orders/Labs/Meds Orders: Active Orders 24 hr Category Date Time Status CORONAVIRUS COVID-19 PCR PHL Stat Lab 01/28/20 09:40 Received CULTURE STREP A CONFIRMATION [RM] Stat Lab 01/28/20 09:14 Results STREP SCRN A RAPID W CULT CONF [RM] Stat Lab 01/28/20 09:14 Results - Re-Assessments/Exams Free Text/Narrative Re-Assessment/Exam: Reviewed exam findings with patient. encouraged her to push fluids and rest. Eat in little quantities at a time as she states she does not have much of an appetite. Ibuprofen 200 mg with meals for fever control and patient declined stating she has liver disease. She was COVID tested and send to the [facility]. Departure - Departure Time of Disposition: 10:43 Disposition: Home, Self-Care 01 Condition: Good Clinical Impression: URI (upper respiratory infection) Qualifiers: URI type: unspecified URI Qualified Code(s): J06.9 - Acute upper respiratory infection, unspecified - Discharge Information Instructions: Upper Respiratory Infection, Adult, [id number] Forms: ED Department Discharge Additional Instructions: Push fluids and rest. Follow up with PCP on Friday Apply vaseline to left nostril. Self-quarantine until COVID results are back. Sepsis Event Note (ED) - Evaluation Sepsis Screening Result: No Definite Risk - Focused Exam Vital Signs: Vital Signs Temp Pulse Resp BP Pulse Ox 01/28/20 09:36 100.7 F H 94 18 124/66 100 - My Orders Last 24 Hours: My Active Orders 01/28/20 09:14 CULTURE STREP A CONFIRMATION [RM] Stat STREP SCRN A RAPID W CULT CONF [RM] Stat 01/28/20 09:40 CORONAVIRUS COVID-19 PCR PHL Stat - Assessment/Plan Last 24 Hours: My Active Orders 01/28/20 09:14 CULTURE STREP A CONFIRMATION [RM] Stat STREP SCRN A RAPID W CULT CONF [] Stat 01/28/20 09:40 CORONAVIRUS COVID-19 PCR PHL Stat
== END 2020-01-28 10:50 | disposition home or self-care (01) ==
LOC: DL.ED 09:15
DX: U07.1 COVID-19 (principal); J06.9 Acute upper respiratory infection, unspecified; K21.9 Gastro-esophageal reflux disease without esophagitis; D64.9 Anemia, unspecified; Z77.22 Contact with and (suspected) exposure to environmental tobacco smoke (acute) (chronic); Z88.6 Allergy status to analgesic agent; Z88.8 Allergy status to other drugs, medicaments and biological substances; Z91.09 Other allergy status, other than to drugs and biological substances; Z79.899 Other long term (current) drug therapy
CPT/HCPCS: 87081; 87430; 99283; U0002

== ENCOUNTER 2020-06-10 15:08 | Emergency (ER) | payer MEDICAID ==
[2020-06-10] MEDS ORDERED: fentaNYL 100 MCG/2 ML SDV IVPUSH ONE (15:27)
[2020-06-10] MEDS ORDERED: Ondansetron 4 MG/2 ML SDV IV ONE (15:27)
[2020-06-10] MEDS ORDERED: MVI, Adult with Vitamin K 10 ML, Thiamine 100 MG, Folic Acid 1 MG in Lactated Ringers 1... IV ONE ×4 (15:28)
[2020-06-10] MEDS ORDERED: Pantoprazole 40 MG Vial IVPUSH ONE (15:53)
[2020-06-10] MEDS ORDERED: Sodium Chloride 0.9% 10 ML Syringe FLUSH PRN (15:54)
[2020-06-10] MEDS ORDERED: Octreotide 100 MCG/ML SDV IVPUSH ONE (15:54)
[2020-06-10] MEDS ORDERED: Furosemide 40 MG/4 ML VIAL IVPUSH ONE (15:55)
[2020-06-10] MEDS ORDERED: diphenhydrAMINE 50 MG/ML SDV IV ONE (15:55)
[2020-06-10] MEDS ORDERED: Pantoprazole 40 MG in Sodium Chloride 0.9% 100 ML IV SCH (16:00)
[2020-06-10 16:08] LABS: ANION GAP 14.6 mEq/L (7-13); CHLORIDE,CL 106 mmol/L (98-107); SODIUM,NA 140 mmol/L (136-145)
[2020-06-10 16:14] LABS: PTT,PARTIAL THROMBOPLSTIN TIME 32.5 SEC (22.0-34.0)
--- NOTE | 2020-06-10 16:36 | CR ---
PROCEDURE INFORMATION: Exam: XR Left Hip with Pelvis when Performed Exam date and time: 06/10/2020 3:57 PM Age: 45 years old Clinical indication: Other: Pain; Additional info: Fall, multiple left sided injuries, intoxicated TECHNIQUE: Imaging protocol: XR Left hip with pelvis when performed. Views: 2 or 3 views. COMPARISON: No relevant prior studies available. FINDINGS: Bones/joints: There is no evidence of acute fracture. There is no evidence of joint malalignment or dislocation. Soft tissues: There are no soft tissue masses or fluid collections. IMPRESSION: 1. No evidence of acute fracture. 2. No evidence of acute dislocation.
--- NOTE | 2020-06-10 16:37 | CR ---
PROCEDURE INFORMATION: Exam: XR Left Knee Exam date and time: 06/10/2020 4:00 PM Age: 45 years old Clinical indication: Other: Pain; Additional info: Fall, multiple left sided injuries, intoxicated TECHNIQUE: Imaging protocol: XR Left knee. Views: 3 views. COMPARISON: CR Knee 3V Lt 03/11/2017 6:55 PM FINDINGS: Bones/joints: There is no evidence of acute fracture. There is no evidence of joint malalignment or dislocation. Small joint effusion. Soft tissues: There are no soft tissue masses or fluid collections. IMPRESSION: 1. No evidence of acute fracture. 2. No evidence of acute dislocation. 3. Small joint effusion.
--- NOTE | 2020-06-10 16:37 | CR ---
PROCEDURE INFORMATION: Exam: XR Left Ankle Exam date and time: 06/10/2020 4:02 PM Age: 45 years old Clinical indication: Other: Pain; Additional info: Fall, multiple left sided injuries, intoxicated TECHNIQUE: Imaging protocol: XR Left ankle. Views: 3 or more views. COMPARISON: No relevant prior studies available. FINDINGS: Bones/joints: There is no evidence of acute fracture. There is no evidence of joint malalignment or dislocation. Calcaneal spur. Soft tissues: There are no soft tissue masses or fluid collections. Mild soft tissue swelling. IMPRESSION: 1. No evidence of acute fracture. 2. No evidence of acute dislocation. 3. Mild soft tissue swelling.
--- NOTE | 2020-06-10 16:39 | CR ---
PROCEDURE INFORMATION: Exam: XR Lumbosacral Spine, 2 or 3 Views Exam date and time: 06/10/2020 3:56 PM Age: 45 years old Clinical indication: Other: Pain; Additional info: Fall, multiple left sided injuries, intoxicated TECHNIQUE: Imaging protocol: XR of the lumbosacral spine, 2 or 3 views. COMPARISON: No relevant prior studies available. FINDINGS: Bones/joints: Normal. No acute fracture. Normal alignment. Soft tissues: A large amount of stool is noted throughout the colon. IMPRESSION: 1. No acute findings. 2. A large amount of stool is noted throughout the colon.
--- NOTE | 2020-06-10 16:39 | CR ---
PROCEDURE INFORMATION: Exam: XR Left Shoulder Exam date and time: 06/10/2020 3:47 PM Age: 45 years old Clinical indication: Other: Pain; Additional info: Fall, multiple left sided injuries, intoxicated TECHNIQUE: Imaging protocol: XR Left shoulder. Views: 2 or more views. COMPARISON: No relevant prior studies available. FINDINGS: Bones/joints: There is no evidence of acute fracture. Soft tissues: There are no soft tissue masses or fluid collections. IMPRESSION: No evidence of acute fracture.
--- NOTE | 2020-06-10 16:40 | CR ---
PROCEDURE INFORMATION: Exam: XR Left Ribs with PA Chest, 3 Views Exam date and time: 06/10/2020 3:51 PM Age: 45 years old Clinical indication: Other: Pain; Additional info: Fall, multiple left sided injuries, intoxicated TECHNIQUE: Imaging protocol: XR Left ribs 3 views with PA chest. COMPARISON: CR Chest 2V 10/14/2019 4:04 PM FINDINGS: Lungs: Unremarkable. No consolidation. Pleural space: Unremarkable. No pleural effusion. No pneumothorax. Heart/Mediastinum: Unremarkable. No cardiomegaly. Bones/joints: Unremarkable. IMPRESSION: No acute findings.
--- NOTE | 2020-06-10 16:40 | CT ---
PROCEDURE INFORMATION: Exam: CT Cervical Spine Without Contrast Exam date and time: 06/10/2020 3:44 PM Age: 45 years old Clinical indication: Other: Pain; Additional info: Fall 2 days ago, head neck injury, intoxicated TECHNIQUE: Imaging protocol: Computed tomography images of the cervical spine without contrast. Radiation optimization: All CT scans at this facility use at least one of these dose optimization techniques: automated exposure control; mA and/or kV adjustment per patient size (includes targeted exams where dose is matched to clinical indication); or iterative reconstruction. COMPARISON: CT Cervical Spine wo Cont 05/09/2018 3:56 PM FINDINGS: Bones/joints: No acute fracture. Normal alignment. Discs/Spinal canal/Neural foramina: No significant disc protrusion. No severe spinal canal stenosis. No significant neural foraminal narrowing. Lungs: Lung apices are normal. Soft tissues: Unremarkable. IMPRESSION: No acute findings.
--- NOTE | 2020-06-10 16:43 | CT ---
PROCEDURE INFORMATION: Exam: CT Head Without Contrast Exam date and time: 06/10/2020 3:44 PM Age: 45 years old Clinical indication: Other: Pain; Additional info: Fall 2 days ago, head neck injury, intoxicated TECHNIQUE: Imaging protocol: Computed tomography of the head without contrast. Radiation optimization: All CT scans at this facility use at least one of these dose optimization techniques: automated exposure control; mA and/or kV adjustment per patient size (includes targeted exams where dose is matched to clinical indication); or iterative reconstruction. COMPARISON: CT Head wo Cont 05/09/2018 3:56 PM FINDINGS: Brain: Normal. No hemorrhage. Unremarkable white matter. No mass effect. Cerebral ventricles: No ventriculomegaly. Bones/joints: Unremarkable. No acute fracture. Paranasal sinuses: Visualized sinuses are unremarkable. No fluid levels. Mastoid air cells: Visualized mastoid air cells are well aerated. Soft tissues: Unremarkable. IMPRESSION: No acute intracranial abnormality.
--- NOTE | 2020-06-10 17:04 | EDM.PDOC ---
Scribed by Tata Esparza 06/10/20 1543 for Pratibha Ramos MD ED HPI GENERAL MEDICAL PROBLEM - General Chief Complaint: Back Pain or Injury Stated Complaint: [facility] Time Seen by Provider: 06/10/20 15:15 Source of Information: Reports: Patient, EMS, EMS Notes Reviewed, RN, RN Notes Reviewed History Limitations: Reports: Intoxication - History of Present Illness INITIAL COMMENTS - FREE TEXT/NARRATIVE: Pt arrives to ER from home by [facility] with c/o pain to the "entire left side" of the body sustained when she fell down 4-5 stairs on Friday, 2020. Pt states that she does not remember much about the fall because she was drunk, and is unsure if she hit her head, or had any LOC. She states that pain is in neck and then everything on the left side of her body down to her toes. Pt denies taking medication [employer], stating that she cannot take anything over the counter because of liver cirrhosis. She does admit that she drinks "a lot" of beer and vodka on a daily basis. She denies visual changes, chest pain, N/V, or motor weakness. Pt was COVID positive at this facility on 01/28/20. Onset: Sudden Onset Date: 06/07/20 Duration: Constant Location: Reports: Head, Neck, Chest, Back, Pelvis, Upper Extremity, Left, Lower Extremity, Left Quality: Reports: Ache Severity: Severe Improves with: Reports: None Worsens with: Reports: Movement Associated Symptoms: Reports: No Other Symptoms Left Back Pain Score (Numeric/FACES): 9 - Related Data Allergies Allergy/AdvReac Type Severity Reaction Status Date / Time acetaminophen Allergy Hives Verified 06/10/20 15:13 [From Comtrex Cold-Cough] dextromethorphan Allergy Hives Verified 06/10/20 15:13 [From Comtrex Cold-Cough] phenylephrine Allergy Hives Verified 06/10/20 15:13 [From Comtrex Cold-Cough] wool Allergy itchy Uncoded 06/10/20 15:13 Home Meds: Home Meds Ferrous Sulfate [Iron] 325 mg PO BID 05/09/18 [History] Pantoprazole Sodium 40 mg PO DAILY 05/09/18 [History] Folic Acid 1 mg PO DAILY 10/12/18 [History] Furosemide 20 mg PO DAILY 01/04/19 [History] Lactulose [Cephulac] 20 gm PO TID 30 Days #90 cup 01/06/19 [Rx] Spironolactone 25 mg PO DAILY 30 Days #30 tablet 01/06/19 [Rx] Ondansetron [Zofran ODT] 4 mg PO Q6H PRN 03/27/19 [History] Rifaximin [Xifaxan] 550 mg PO BID 03/27/19 [History] ursodioL [Ursodiol] 300 mg PO BID 03/27/19 [History] Past Medical History - Past Health History Medical/Surgical History: Denies Medical/Surgical History HEENT History: Reports: Epistaxis, Impaired Vision Other HEENT History: wears glasses Cardiovascular History: Reports: None Respiratory History: Reports: None Gastrointestinal History: Reports: Cholelithiasis, Cirrhosis, GERD, GI Bleed Other Gastrointestinal History: liver cirrhosis, gallbladder polyps Genitourinary History: Reports: None [employer] History: Reports: Other [employer] History: 05/09/2018 states she is on her monthly and flow has been heavy Musculoskeletal History: Reports: None Other Musculoskeletal History: Rt. martínez fx. Neurological History: Reports: None Psychiatric History: Reports: Addiction Other Psychiatric History: Etoh addiction Endocrine/Metabolic History: Reports: None Hematologic History: Reports: Anemia, Iron Deficiency Immunologic History: Reports: None Oncologic (Cancer) History: Reports: None Dermatologic History: Reports: None - Infectious Disease History Infectious Disease History: Reports: None - Past Surgical History GI Surgical History: Reports: None Social & Family History - Family History Family Medical History: No Pertinent Family History Cardiac: Reports: DC Endocrine/Metabolic: Reports: Diabetes, type II - Caffeine Use Caffeine Use: Reports: Coffee Caffeine Use Comment: occasional use - Alcohol Use Alcohol Use History: Yes Alcohol Use Frequency: Daily - Living Situation & Occupation Living situation: Reports: with Family Occupation: Unemployed ED ROS GENERAL - Review of Systems Review Of Systems: Comprehensive ROS is negative, except as noted in HPI. ED EXAM, GENERAL - Physical Exam Exam: See Below Exam Limited By: Intoxication General Appearance: Alert, No Apparent Distress, Other (Chronically ill a ppearing) Eye Exam: Bilateral Eye: EOMI (mild scleral icterus), PERRL Nose: Normal Inspection, Normal Mucosa, No Blood Throat/Mouth: Normal Lips, Normal Voice, No Airway Compromise Head: Atraumatic, Normocephalic Neck: Other (C-collar not removed for initial exam. C-spine cleared by CT scan due to EtOH intoxication. C-colloar removed at 1644HRS by Diandra Vieira RN.) Respiratory/Chest: No Respiratory Distress, No Accessory Muscle Use, Decreased Breath Sounds, Splinting, Other (Left generalized chest wall tenderness, no visible bruising, redness, swelling, or deformity.). No: Rales, Rhonchi, Wheezing, Stridor Cardiovascular: Regular Rate, Rhythm, No Edema GI/Abdominal: Normal Bowel Sounds, Soft, Non-Tender, No Distention, Hepatomegaly. No: Guarding, Rigid, Rebound (Female) Exam: Deferred Rectal (Female) Exam: Deferred Back Exam: Decreased Range of Motion, Muscle Spasm, Paraspinal Tenderness (Left). No: CVA Tenderness (L), CVA Tenderness (R), Vertebral Tenderness Extremities: No Pedal Edema, Normal Capillary Refill, Arm Pain (Left), Leg Pain (Left), Limited Range of Motion (Left upper and lower extremity due to subjective pain). No: Joint Swelling, Deion's Sign, Increased Warmth, Mottled, Pallor, Redness Neurological: Alert, Oriented, No Motor/Sensory Deficits Psychiatric: Depressed Mood, Flat Affect Skin Exam: Warm, Dry, Rash (Dry skin with exoriated patches to ankles, and dorsal forearms.) #1 Interpretation EKG Date: 06/10/20 Time: 16:23 Rhythm: Other (sinus rhythm) Rate (Beats/Min): 72 [place]: Normal P-Wave: Present QRS: Wide (nonspecific intraventricular conduction delay. Borderline low voltage in frontal leads.) ST-T: Normal QT: Normal Course - Vital Signs Last Recorded V/S: Last Vital Signs Temp 97.6 F 06/10/20 15:08 Pulse 98 06/10/20 15:08 Resp 20 06/10/20 15:08 BP 109/73 06/10/20 15:08 Pulse Ox 99 06/10/20 15:08 - Orders/Labs/Meds Orders: Active Orders 24 hr Category Date Time Status EKG 12 Lead [EKG Documentation Completion] [RC] STAT Care 06/10/20 15:58 Active Avila Catheter Insertion [Insert Urinary Catheter] [OM. Care 06/10/20 16:00 Ordered PC] Q24H Notify Provider [RC] PRN Care 06/10/20 15:57 Active Peripheral IV Care [RC] . DIRECTED Care 06/10/20 15:54 Active Urinary Catheter Assessment [RC] ASDIRECTED Care 06/10/20 15:58 Active Verify Patient Consent Obtain [RC] ASDIRECTED Care 06/10/20 15:56 Active CORONAVIRUS COVID-19 GAURI [MOLEC] Stat Lab 06/10/20 16:45 Received Pantoprazole [ProTONIX IV] 40 mg Med 06/10/20 16:00 Active Sodium Chloride 0.9% [Normal Saline] 100 ml IV .CONTINUOS Sodium Chloride 0.9% [Saline Flush] Med 06/10/20 15:54 Active 10 ml FLUSH ASDIRECTED PRN Blood Transfusion Reflex Orders [OM.PC] Routine Oth 06/10/20 15:55 Ordered Peripheral IV Insertion Adult [OM.PC] Stat Oth 06/10/20 15:54 Ordered Transfuse Red Blood Cells [COMM] Stat Oth 06/10/20 15:55 Ordered Medication Orders Pantoprazole Sodium 40 mg/ (Sodium Chloride) 100 mls @ 20 mls/hr IV .CONTINUOS JEANNETTE Last Admin: 06/10/20 16:53 Dose: 20 mls/hr Documented by: HADLEY Sodium Chloride (Saline Flush) 10 ml FLUSH ASDIRECTED PRN PRN Reason: Keep Vein Open Last Admin: 06/10/20 16:27 Dose: 10 ml Documented by: HADLEY Labs: Laboratory Tests 06/10/20 06/10/20 06/10/20 Range/Units 15:34 15:34 15:34 WBC 4.1 L (5.0-10.0) 10^3/uL RBC 2.56 L (4.2-5.4) 10^6/uL Hgb 5.8 L* (12.0-16.0) g/dL Hct 20.1 L* (37.0-47.0) % MCV 78.5 L D (80-100) fL MCH 22.7 L (27.0-34.0) pg MCHC 28.9 L (33.0-35.0) g/dL Plt Count 34 L* (150-450) 10^3/uL Neut % (Auto) 70.1 (42.2-75.2) % Lymph % (Auto) 15.4 L (20.5-50.1) % [place] % (Auto) 5.4 (2-8) % Eos % (Auto) 4.4 H (1.0-3.0) % Baso % (Auto) 4.7 H (0.0-1.0) % PT 15.9 H (9.0-12.0) SEC INR 1.7 H (0.9-1.2) APTT 32.5 (22.0-34.0) SEC Sodium 140 (136-145) mmol/L Potassium 3.6 (3.5-5.1) mmol/L Chloride 106 (98-107) mmol/L Carbon Dioxide 23 (21-32) mmol/L Anion Gap 14.6 H (7-13) mEq/L BUN 8 (7-18) mg/dL Creatinine 0.75 (0.55-1.02) mg/dL Est Cr Clr Drug Dosing 86.13 mL/min Estimated GFR (MDRD) > 60 BUN/Creatinine Ratio 10.7 (No establ ref range) Glucose 103 H (74-99) mg/dL Calcium 7.4 L (8.5-10.1) mg/dL Total Bilirubin 6.4 H (0.2-1.0) mg/dL AST 130 H (15-37) U/L ALT 51 (14-59) U/L Alkaline Phosphatase 148 H (46-116) U/L Creatine Kinase (16-191) U/L Troponin I (0.000-0.056) ng/mL Total Protein 7.5 (6.4-8.2) g/dL Albumin 2.3 L (3.4-5.0) g/dL Globulin 5.2 Albumin/Globulin Ratio 0.44 Amylase 48 (25-115) U/L Lipase 161 (73-393) U/L Urine Color (YELLOW) Urine Appearance (CLEAR) Urine pH (5.0-9.0) Ur Specific Critz (1.005-1.030) Urine Protein (NEGATIVE) Urine Glucose (UA) (NEGATIVE) Urine Ketones (NEGATIVE) Urine Occult Blood (NEGATIVE) Urine Nitrite (NEGATIVE) Urine Bilirubin (NEGATIVE) Urine Urobilinogen (0.2-1.0) mg/dL Ur Leukocyte Esterase (NEGATIVE) Urine HCG, Qual Urine Opiates Screen (NEGATIVE) Ur Oxycodone Screen (NEGATIVE) Urine Methadone Screen (NEGATIVE) Ur Barbiturates Screen (NEGATIVE) U Tricyclic Antidepress (NEGATIVE) Ur Phencyclidine Scrn (NEGATIVE) Ur Amphetamine Screen (NEGATIVE) U Methamphetamines Scrn (NEGATIVE) Urine MDMA Screen (NEGATIVE) U Benzodiazepines Scrn (NEGATIVE) Urine Cocaine Screen (NEGATIVE) U Marijuana (THC) Screen (NEGATIVE) Ethyl Alcohol 453 (0) mg/dL Blood Type Gel Antibody Screen 06/10/20 06/10/20 06/10/20 Range/Units 15:34 15:34 15:34 WBC (5.0-10.0) 10^3/uL RBC (4.2-5.4) 10^6/uL Hgb (12.0-16.0) g/dL Hct (37.0-47.0) % MCV (80-100) fL MCH (27.0-34.0) pg MCHC (33.0-35.0) g/dL Plt Count (150-450) 10^3/uL Neut % (Auto) (42.2-75.2) % Lymph % (Auto) (20.5-50.1) % [place] % (Auto) (2-8) % Eos % (Auto) (1.0-3.0) % Baso % (Auto) (0.0-1.0) % PT (9.0-12.0) SEC INR (0.9-1.2) APTT (22.0-34.0) SEC Sodium (136-145) mmol/L Potassium (3.5-5.1) mmol/L Chloride (98-107) mmol/L Carbon Dioxide (21-32) mmol/L Anion Gap (7-13) mEq/L BUN (7-18) mg/dL Creatinine (0.55-1.02) mg/dL Est Cr Clr Drug Dosing mL/min Estimated GFR (MDRD) BUN/Creatinine Ratio (No establ ref range) Glucose (74-99) mg/dL Calcium (8.5-10.1) mg/dL Total Bilirubin (0.2-1.0) mg/dL AST (15-37) U/L ALT (14-59) U/L Alkaline Phosphatase (46-116) U/L Creatine Kinase 98 (16-191) U/L Troponin I 0.109 H* (0.000-0.056) ng/mL Total Protein (6.4-8.2) g/dL Albumin (3.4-5.0) g/dL Globulin Albumin/Globulin Ratio Amylase (25-115) U/L Lipase (73-393) U/L Urine Color (YELLOW) Urine Appearance (CLEAR) Urine pH (5.0-9.0) Ur Specific Critz (1.005-1.030) Urine Protein (NEGATIVE) Urine Glucose (UA) (NEGATIVE) Urine Ketones (NEGATIVE) Urine Occult Blood (NEGATIVE) Urine Nitrite (NEGATIVE) Urine Bilirubin (NEGATIVE) Urine Urobilinogen (0.2-1.0) mg/dL Ur Leukocyte Esterase (NEGATIVE) Urine HCG, Qual Urine Opiates Screen (NEGATIVE) Ur Oxycodone Screen (NEGATIVE) Urine Methadone Screen (NEGATIVE) Ur Barbiturates Screen (NEGATIVE) U Tricyclic Antidepress (NEGATIVE) Ur Phencyclidine Scrn (NEGATIVE) Ur Amphetamine Screen (NEGATIVE) U Methamphetamines Scrn (NEGATIVE) Urine MDMA Screen (NEGATIVE) U Benzodiazepines Scrn (NEGATIVE) Urine Cocaine Screen (NEGATIVE) U Marijuana (THC) Screen (NEGATIVE) Ethyl Alcohol (0) mg/dL Blood Type A POSITIVE Gel Antibody Screen Negative 06/10/20 06/10/20 06/10/20 Range/Units 16:41 16:41 16:41 WBC (5.0-10.0) 10^3/uL RBC (4.2-5.4) 10^6/uL Hgb (12.0-16.0) g/dL Hct (37.0-47.0) % MCV (80-100) fL MCH (27.0-34.0) pg MCHC (33.0-35.0) g/dL Plt Count (150-450) 10^3/uL Neut % (Auto) (42.2-75.2) % Lymph % (Auto) (20.5-50.1) % [place] % (Auto) (2-8) % Eos % (Auto) (1.0-3.0) % Baso % (Auto) (0.0-1.0) % PT (9.0-12.0) SEC INR (0.9-1.2) APTT (22.0-34.0) SEC Sodium (136-145) mmol/L Potassium (3.5-5.1) mmol/L Chloride (98-107) mmol/L Carbon Dioxide (21-32) mmol/L Anion Gap (7-13) mEq/L BUN (7-18) mg/dL Creatinine (0.55-1.02) mg/dL Est Cr Clr Drug Dosing mL/min Estimated GFR (MDRD) BUN/Creatinine Ratio (No establ ref range) Glucose (74-99) mg/dL Calcium (8.5-10.1) mg/dL Total Bilirubin (0.2-1.0) mg/dL AST (15-37) U/L ALT (14-59) U/L Alkaline Phosphatase (46-116) U/L Creatine Kinase (16-191) U/L Troponin I (0.000-0.056) ng/mL Total Protein (6.4-8.2) g/dL Albumin (3.4-5.0) g/dL Globulin Albumin/Globulin Ratio Amylase (25-115) U/L Lipase (73-393) U/L Urine Color Rosa (YELLOW) Urine Appearance Slightly cloudy (CLEAR) Urine pH 6.0 (5.0-9.0) Ur Specific Critz 1.020 (1.005-1.030) Urine Protein Negative (NEGATIVE) Urine Glucose (UA) Negative (NEGATIVE) Urine Ketones Negative (NEGATIVE) Urine Occult Blood Negative (NEGATIVE) Urine Nitrite Negative (NEGATIVE) Urine Bilirubin Large H (NEGATIVE) Urine Urobilinogen 4.0 H (0.2-1.0) mg/dL Ur Leukocyte Esterase Negative (NEGATIVE) Urine HCG, Qual Negative Urine Opiates Screen Negative (NEGATIVE) Ur Oxycodone Screen Negative (NEGATIVE) Urine Methadone Screen Negative (NEGATIVE) Ur Barbiturates Screen Negative (NEGATIVE) U Tricyclic Antidepress Negative (NEGATIVE) Ur Phencyclidine Scrn Negative (NEGATIVE) Ur Amphetamine Screen Negative (NEGATIVE) U Methamphetamines Scrn Negative (NEGATIVE) Urine MDMA Screen Negative (NEGATIVE) U Benzodiazepines Scrn Negative (NEGATIVE) Urine Cocaine Screen Negative (NEGATIVE) U Marijuana (THC) Screen Negative (NEGATIVE) Ethyl Alcohol (0) mg/dL Blood Type Gel Antibody Screen Hemoccult Stool: POSITIVE Meds: Medications Generic Name Dose Route Start Last Admin Trade Name Freq PRN Reason Stop Dose Admin Pantoprazole Sodium 40 mg/ 100 mls @ 20 mls/hr 06/10/20 16:00 06/10/20 16:53 Sodium Chloride IV 20 mls/hr .CONTINUOS JEANNETTE Administration Sodium Chloride 10 ml 06/10/20 15:54 06/10/20 16:27 Saline Flush FLUSH 10 ml ASDIRECTED PRN Administration Keep Vein Open Discontinued Medications Generic Name Dose Route Start Last Admin Trade Name Freq PRN Reason Stop Dose Admin Diphenhydramine HCl 25 mg 06/10/20 15:55 Benadryl IV 06/10/20 15:56 ONETIME ONE Fentanyl 25 mcg 06/10/20 15:27 06/10/20 16:18 Sublimaze IVPUSH 06/10/20 15:28 25 mcg ONETIME ONE Administration Furosemide 40 mg 06/10/20 15:55 Lasix IVPUSH 06/10/20 15:56 NOW ONE Multivitamins/Minerals 10 ml/ 1,011.2 mls @ 999 mls/hr 06/10/20 15:28 06/10/20 16:18 Thiamine HCl 100 mg/ Folic IV 06/10/20 16:28 999 mls/hr Acid 1 mg/ Lactated Ringer's .BOLUS ONE Administration Octreotide Acetate 50 mcg 06/10/20 15:54 06/10/20 16:48 Sandostatin IVPUSH 06/10/20 15:55 50 mcg ONETIME ONE Administration Ondansetron HCl 4 mg 06/10/20 15:27 06/10/20 16:18 Zofran IV 06/10/20 15:28 4 mg ONETIME ONE Administration Pantoprazole Sodium 80 mg 06/10/20 15:53 06/10/20 16:48 Protonix Iv IVPUSH 06/10/20 15:54 80 mg .BOLUS ONE Administration - Radiology Interpretation Free Text/Narrative:: [facility] Final Radiology Report Call: [phone] assistance Online chat: [email or web address] Tracking Name: WILY COULTER Age: 45Years F Date: 06/10/2020 SSN: -- : [id number] Study: CR ANKLE MIN 3V LT Requesting Physician: PRATIBHA RAMOS Images: 3 Addl Studies: Provided Clinical History: Fall, multiple left sided injuries, intoxicated Contrast: Contrast Medium: Contrast Amount: Contrast Method: CONFIDENTIALITY STATEMENT This report is intended only for use by the referring physician, and only in accordance with law. If you received this in error, call [phone]. Page 1 of 1 PROCEDURE INFORMATION: Exam: XR Left Ankle Exam date and time: 06/10/2020 4:02 PM Age: 45 years old Clinical indication: Other: Pain; Additional info: Fall, multiple left sided injuries, intoxicated TECHNIQUE: Imaging protocol: XR Left ankle. Views: 3 or more views. COMPARISON: No relevant prior studies available. FINDINGS: Bones/joints: There is no evidence of acute fracture. There is no evidence of joint malalignment or dislocation. Calcaneal spur. Soft tissues: There are no soft tissue masses or fluid collections. Mild soft tissue swelling. IMPRESSION: 1. No evidence of acute fracture. 2. No evidence of acute dislocation. 3. Mild soft tissue swelling. Thank you for allowing us to participate in the care of your patient. Dictated and Authenticated by: Mikey Sheikh DO 06/10/2020 4:37 PM Central Time ([place] & [place]) TECHNIQUE: Imaging protocol: XR Left knee. Views: 3 views. COMPARISON: CR Knee 3V Lt 03/11/2017 6:55 PM FINDINGS: Bones/joints: There is no evidence of acute fracture. There is no evidence of joint malalignment or dislocation. Small joint effusion. Soft tissues: There are no soft tissue masses or fluid collections. IMPRESSION: 1. No evidence of acute fracture. 2. No evidence of acute dislocation. 3. Small joint effusion. Imaging protocol: XR Left hip with pelvis when performed. Views: 2 or 3 views. COMPARISON: No relevant prior studies available. FINDINGS: Bones/joints: There is no evidence of acute fracture. There is no evidence of joint malalignment or dislocation. Soft tissues: There are no soft tissue masses or fluid collections. IMPRESSION: 1. No evidence of acute fracture. 2. No evidence of acute dislocation. PROCEDURE INFORMATION: Exam: XR Lumbosacral Spine, 2 or 3 Views Exam date and time: 06/10/2020 3:56 PM Age: 45 years old Clinical indication: Other: Pain; Additional info: Fall, multiple left sided injuries, intoxicated TECHNIQUE: Imaging protocol: XR of the lumbosacral spine, 2 or 3 views. COMPARISON: No relevant prior studies available. FINDINGS: Bones/joints: Normal. No acute fracture. Normal alignment. Soft tissues: A large amount of stool is noted throughout the colon. IMPRESSION: 1. No acute findings. 2. A large amount of stool is noted throughout the colon. Imaging protocol: XR Left ribs 3 views with PA chest. COMPARISON: CR Chest 2V 10/14/2019 4:04 PM FINDINGS: Lungs: Unremarkable. No consolidation. Pleural space: Unremarkable. No pleural effusion. No pneumothorax. Heart/Mediastinum: Unremarkable. No cardiomegaly. Bones/joints: Unremarkable. IMPRESSION: No acute findings. TECHNIQUE: Imaging protocol: XR Left shoulder. Views: 2 or more views. COMPARISON: No relevant prior studies available. FINDINGS: Bones/joints: There is no evidence of acute fracture. Soft tissues: There are no soft tissue masses or fluid collections. IMPRESSION: No evidence of acute fracture. Radiation optimization: All CT scans at this facility use at least one of these dose optimization techniques: automated exposure control; mA and/or kV adjustment per patient size (includes targeted exams where dose is matched to clinical indication); or iterative reconstruction. COMPARISON: CT Head wo Cont 05/09/2018 3:56 PM FINDINGS: Brain: Normal. No hemorrhage. Unremarkable white matter. No mass effect. Cerebral ventricles: No ventriculomegaly. Bones/joints: Unremarkable. No acute fracture. Paranasal sinuses: Visualized sinuses are unremarkable. No fluid levels. Mastoid air cells: Visualized mastoid air cells are well aerated. Soft tissues: Unremarkable. IMPRESSION: No acute intracranial abnormality. Imaging protocol: Computed tomography images of the cervical spine without contrast. Radiation optimization: All CT scans at this facility use at least one of these dose optimization techniques: automated exposure control; mA and/or kV adjustment per patient size (includes targeted exams where dose is matched to clinical indication); or iterative reconstruction. COMPARISON: CT Cervical Spine wo Cont 05/09/2018 3:56 PM FINDINGS: Bones/joints: No acute fracture. Normal alignment. Discs/Spinal canal/Neural foramina: No significant disc protrusion. No severe spinal canal stenosis. No significant neural foraminal narrowing. Lungs: Lung apices are normal. Soft tissues: Unremarkable. IMPRESSION: No acute findings. Departure - Departure Time of Disposition: 17:05 Disposition: DC/Tfer to Acute Hospital 02 Condition: Serious Clinical Impression: Severe anemia, Alcohol abuse, Elevated troponin, Biliary cirrhosis, unspecified, Thrombocytopenia Acute alcohol intoxication Qualifiers: Complication of substance-induced condition: with unspecified complication Qualified Code(s): F10.929 - Alcohol use, unspecified with intoxication, unspecified - Discharge Information *PRESCRIPTION DRUG MONITORING PROGRAM REVIEWED*: Not Applicable *COPY OF PRESCRIPTION DRUG MONITORING REPORT IN PATIENT TIKI: Not Applicable Forms: ED Department Discharge, [facility] Event [facility] (ED) - Evaluation Sepsis Screening Result: No Definite Risk - Focused Exam Vital Signs: Vital Signs Temp Pulse Resp BP Pulse Ox 06/10/20 15:08 97.6 F 98 20 109/73 99 - My Orders Last 24 Hours: My Active Orders 06/10/20 15:54 Peripheral IV Care [RC] . DIRECTED Sodium Chloride 0.9% [Saline Flush] 10 ml FLUSH ASDIRECTED PRN Peripheral IV Insertion Adult [OM.PC] Stat 06/10/20 15:55 Blood Transfusion Reflex Orders [OM.PC] Routine Transfuse Red Blood Cells [COMM] Stat 06/10/20 15:56 Verify Patient Consent Obtain [RC] ASDIRECTED 06/10/20 15:57 Notify Provider [RC] PRN 06/10/20 15:58 EKG 12 Lead [EKG Documentation Completion] [RC] STAT Urinary Catheter Assessment [RC] ASDIRECTED 06/10/20 16:00 Avila Catheter Insertion [Insert Urinary Catheter] [OM.PC] Q24H Pantoprazole [ProTONIX IV] 40 mg Sodium Chloride 0.9% [Normal Saline] 100 ml IV .CONTINUOS 06/10/20 16:45 CORONAVIRUS COVID-19 GAURI [MOLEC] Stat - Assessment/Plan Last 24 Hours: My Active Orders 06/10/20 15:54 Peripheral IV Care [RC] . DIRECTED Sodium Chloride 0.9% [Saline Flush] 10 ml FLUSH ASDIRECTED PRN Peripheral IV Insertion Adult [OM.PC] Stat 06/10/20 15:55 Blood Transfusion Reflex Orders [OM.PC] Routine Transfuse Red Blood Cells [COMM] Stat 06/10/20 15:56 Verify Patient Consent Obtain [RC] ASDIRECTED 06/10/20 15:57 Notify Provider [RC] PRN 06/10/20 15:58 EKG 12 Lead [EKG Documentation Completion] [RC] STAT Urinary Catheter Assessment [RC] ASDIRECTED 06/10/20 16:00 Avila Catheter Insertion [Insert Urinary Catheter] [OM.PC] Q24H Pantoprazole [ProTONIX IV] 40 mg Sodium Chloride 0.9% [Normal Saline] 100 ml IV .CONTINUOS 06/10/20 16:45 CORONAVIRUS COVID-19 GAURI [MOLEC] Stat I have read and agree with the documentation that has been completed regarding this visit. By signing this record, I attest that the documentation was completed in my physical presence and is an accurate record of the encounter.
[2020-06-10 17:50] VITALS: BP 96/61; PULSE 72
== END 2020-06-10 18:00 ==
LOC: DL.ED 15:08
DX: D69.6 Thrombocytopenia, unspecified (principal); F10.129 Alcohol abuse with intoxication, unspecified; K74.5 Biliary cirrhosis, unspecified; K21.9 Gastro-esophageal reflux disease without esophagitis; Y90.8 Blood alcohol level of 240 mg/100 ml or more; R79.89 Other specified abnormal findings of blood chemistry; Z88.6 Allergy status to analgesic agent; Z88.8 Allergy status to other drugs, medicaments and biological substances; Z91.048 Other nonmedicinal substance allergy status; Z79.899 Other long term (current) drug therapy
CPT/HCPCS: 36415; 36430; 51702; 70450; 71101; 72100; 72125; 73030; 73502; 73562; 73610; 80053; 80305; 80307; 81003; 81025; 82150; 82272; 82550; 83690; 84484; 85025; 85610; 85730; 86850; 86900; 86901; 86920; 86922; 87635; 93005; 93010; 96365; 96367; 96375; 96376; 99285; C9113; J1200; J1940; J2354; J2405; J3010; J3411; J7120; P9016; J3490; U0002

== ENCOUNTER 2020-06-25 17:45 | Emergency (ER) | payer MEDICAID ==
[2020-06-25 18:54] VITALS: BP 102/49; PULSE 83
--- NOTE | 2020-06-25 19:12 | EDM.PDOC ---
ED HPI GENERAL MEDICAL PROBLEM - General Chief Complaint: Abdominal Pain Stated Complaint: MIDDLE OF STOMACH HURTING FOR 3 DAYS Time Seen by Provider: 06/25/20 19:08 Source of Information: Reports: Patient History Limitations: Reports: No Limitations - History of Present Illness INITIAL COMMENTS - FREE TEXT/NARRATIVE: was d/c from GF for draining fluid from abd Thurs, and still has pain RUQ region. been taking her routine meds. Bilateral Lower Abdomen Pain Score (Numeric/FACES): 6 - Related Data Allergies Allergy/AdvReac Type Severity Reaction Status Date / Time acetaminophen Allergy Hives Verified 06/25/20 18:54 [From Comtrex Cold-Cough] dextromethorphan Allergy Hives Verified 06/25/20 18:54 [From Comtrex Cold-Cough] phenylephrine Allergy Hives Verified 06/25/20 18:54 [From Comtrex Cold-Cough] wool Allergy itchy Uncoded 06/25/20 18:54 Home Meds: Home Meds Ferrous Sulfate [Iron] 325 mg PO BID 05/09/18 [History] Pantoprazole Sodium 40 mg PO DAILY 05/09/18 [History] Folic Acid 1 mg PO DAILY 10/12/18 [History] Furosemide 20 mg PO DAILY 01/04/19 [History] Lactulose [Cephulac] 20 gm PO TID 30 Days #90 cup 01/06/19 [Rx] Spironolactone 25 mg PO DAILY 30 Days #30 tablet 01/06/19 [Rx] Ondansetron [Zofran ODT] 4 mg PO Q6H PRN 03/27/19 [History] Rifaximin [Xifaxan] 550 mg PO BID 03/27/19 [History] ursodioL [Ursodiol] 300 mg PO BID 03/27/19 [History] Ciprofloxacin [Cipro XR 500 MG Tablet] 500 mg PO BID 06/25/20 [History] Sucralfate [Carafate] 1 gm PO QID 06/25/20 [History] metroNIDAZOLE [Metronidazole] 500 mg PO TID 06/25/20 [History] Past Medical History - Past Health History Medical/Surgical History: Denies Medical/Surgical History HEENT History: Reports: Epistaxis, Impaired Vision Other HEENT History: wears glasses Cardiovascular History: Reports: None Respiratory History: Reports: None Gastrointestinal History: Reports: Cholelithiasis, Cirrhosis, GERD, GI Bleed Other Gastrointestinal History: liver cirrhosis, gallbladder polyps Genitourinary History: Reports: None 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 martínez gonzales. Neurological History: Reports: None Psychiatric History: Reports: Addiction Other Psychiatric History: Etoh addiction Endocrine/Metabolic History: Reports: None Hematologic History: Reports: Anemia, Iron Deficiency Immunologic History: Reports: None Oncologic (Cancer) History: Reports: None Dermatologic History: Reports: None - Infectious Disease History Infectious Disease History: Reports: None - Past Surgical History Cardiovascular Surgical History: Reports: None Respiratory Surgical History: Reports: None GI Surgical History: Reports: None Female Surgical History: Reports: None Other Female Surgeries/Procedures: heavy menstrual flow at this time Musculoskeletal Surgical History: Reports: None Social & Family History - Family History Family Medical History: No Pertinent Family History Cardiac: Reports: [place] Endocrine/Metabolic: Reports: Diabetes, type II - Tobacco Use Tobacco Use Status *Q: Never Tobacco User Second Hand Smoke Exposure: No - Caffeine Use Caffeine Use: Reports: Coffee Caffeine Use Comment: occasional use - Recreational Drug Use Recreational Drug Use: No - Living Situation & Occupation Living situation: Reports: with Family Occupation: Unemployed ED ROS GENERAL - Review of Systems Review Of Systems: Comprehensive ROS is negative, except as noted in HPI. ED EXAM, GI/ABD - Physical Exam Exam: See Below Exam Limited By: No Limitations General Appearance: Alert, WD/WN, Mild Distress, Moderate Distress, Other (discomfort crying). No: Active Emesis Ears: Hearing Grossly Normal Throat/Mouth: Normal Voice, No Airway Compromise Head: Atraumatic Neck: Non-Tender, Full Range of Motion Respiratory/Chest: No Respiratory Distress Cardiovascular: Regular Rate, Rhythm GI/Abdominal Exam: Guarding, Tender, Other (drain site intact without s/s infection, mild erythema & ecchymosis lower region of drain site.). No: Distended, Rigid, Rebound (Female) Exam: Deferred Rectal (Female) Exam: Deferred Neurological: Alert, Oriented, Normal Cognition, No Motor/Sensory Deficits Psychiatric: Flat Affect, Tearful Skin Exam: Warm, Dry, Jaundice Lymphatic: No Adenopathy Course - Vital Signs Last Recorded V/S: Last Vital Signs Temp 36.4 C 06/25/20 18:47 Pulse 83 06/25/20 18:47 Resp 18 06/25/20 18:47 BP 102/49 L 06/25/20 18:47 Pulse Ox 98 06/25/20 18:47 - Orders/Labs/Meds Orders: Active Orders 24 hr Category Date Time Status CULTURE BLOOD [BC] Stat Lab 06/25/20 19:20 Received Labs: Laboratory Tests 06/25/20 06/25/20 06/25/20 Range/Units 19:20 19:20 19:20 WBC 11.4 H (5.0-10.0) 10^3/uL RBC 2.91 L (4.2-5.4) 10^6/uL Hgb 8.6 L D (12.0-16.0) g/dL Hct 25.9 L (37.0-47.0) % MCV 89.0 D (80-100) fL MCH 29.6 (27.0-34.0) pg MCHC 33.2 (33.0-35.0) g/dL Plt Count 157 D (150-450) 10^3/uL Neut % (Auto) 79.9 H (42.2-75.2) % Lymph % (Auto) 3.0 L (20.5-50.1) % [place] % (Auto) 11.9 H (2-8) % Eos % (Auto) 3.3 H (1.0-3.0) % Baso % (Auto) 1.9 H (0.0-1.0) % Sodium 135 L (136-145) mmol/L Potassium 3.3 L (3.5-5.1) mmol/L Chloride 104 (98-107) mmol/L Carbon Dioxide 20 L (21-32) mmol/L Anion Gap 14.3 H (7-13) mEq/L BUN 19 H (7-18) mg/dL Creatinine 2.21 H D (0.55-1.02) mg/dL Est Cr Clr Drug Dosing 23.33 mL/min Estimated GFR (MDRD) 24 BUN/Creatinine Ratio 8.6 (No establ ref range) Glucose 108 H (74-99) mg/dL Lactic Acid (0.4-2.0) mmol/L Calcium 8.0 L (8.5-10.1) mg/dL Total Bilirubin 30.7 H (0.2-1.0) mg/dL AST 133 H (15-37) U/L ALT 56 (14-59) U/L Alkaline Phosphatase 104 (46-116) U/L Ammonia 47 H (11-32) umol/L Total Protein 6.3 L (6.4-8.2) g/dL Albumin 2.1 L (3.4-5.0) g/dL Globulin 4.2 g/dL Albumin/Globulin Ratio 0.50 Amylase 12 L (25-115) U/L Lipase 90 (73-393) U/L Ethyl Alcohol < 3 (0) mg/dL 06/25/20 Range/Units 19:20 WBC (5.0-10.0) 10^3/uL RBC (4.2-5.4) 10^6/uL Hgb (12.0-16.0) g/dL Hct (37.0-47.0) % MCV (80-100) fL MCH (27.0-34.0) pg MCHC (33.0-35.0) g/dL Plt Count (150-450) 10^3/uL Neut % (Auto) (42.2-75.2) % Lymph % (Auto) (20.5-50.1) % [place] % (Auto) (2-8) % Eos % (Auto) (1.0-3.0) % Baso % (Auto) (0.0-1.0) % Sodium (136-145) mmol/L Potassium (3.5-5.1) mmol/L Chloride (98-107) mmol/L Carbon Dioxide (21-32) mmol/L Anion Gap (7-13) mEq/L BUN (7-18) mg/dL Creatinine (0.55-1.02) mg/dL Est Cr Clr Drug Dosing mL/min Estimated GFR (MDRD) BUN/Creatinine Ratio (No establ ref range) Glucose (74-99) mg/dL Lactic Acid 2.4 H* (0.4-2.0) mmol/L Calcium (8.5-10.1) mg/dL Total Bilirubin (0.2-1.0) mg/dL AST (15-37) U/L ALT (14-59) U/L Alkaline Phosphatase (46-116) U/L Ammonia (11-32) umol/L Total Protein (6.4-8.2) g/dL Albumin (3.4-5.0) g/dL Globulin g/dL Albumin/Globulin Ratio Amylase (25-115) U/L Lipase (73-393) U/L Ethyl Alcohol (0) mg/dL Meds: Medications Discontinued Medications Generic Name Dose Route Start Last Admin Trade Name Meme PRN Reason Stop Dose Admin Clindamycin Phosphate 900 mg/ 106 mls @ 200 mls/hr 06/25/20 20:09 06/25/20 20:16 Sodium Chloride IV 06/25/20 20:40 200 mls/hr ONETIME ONE Administration - Re-Assessments/Exams Free Text/Narrative Re-Assessment/Exam: 06/25/20 20:[address] Ca @ who kindly accepted pt. Departure - Departure Time of Disposition: 20:53 Disposition: DC/Tfer to Acute Hospital 02 Condition: Fair Clinical Impression: Cellulitis of right abdominal wall, Elevated bilirubin, Elevated lactic acid level ALC (alcoholic liver cirrhosis) Qualifiers: Ascites presence: with ascites Qualified Code(s): K70.31 - Alcoholic cirrhosis of liver with ascites Abdominal pain Qualifiers: Abdominal location: right upper quadrant Qualified Code(s): R10.11 - Right upper quadrant pain - Discharge Information Forms: Interfacility Transfer [facility] Sepsis Event Note (ED) - Evaluation Sepsis Screening Result: No Definite Risk - Focused Exam Vital Signs: Vital Signs Temp Pulse Resp BP Pulse Ox 06/25/20 18:47 36.4 C 83 18 102/49 L 98 - My Orders Last 24 Hours: My Active Orders 06/25/20 19:20 CULTURE BLOOD [BC] Stat - Assessment/Plan Last 24 Hours: My Active Orders 06/25/20 19:20 CULTURE BLOOD [BC] Stat
[2020-06-25 20:02] LABS: ANION GAP 14.3 mEq/L (7-13); CHLORIDE,CL 104 mmol/L (98-107); SODIUM,NA 135 mmol/L (136-145)
[2020-06-25] MEDS ORDERED: Clindamycin Phosphate 900 MG in Sodium Chloride 0.9% 100 ML IV ONE (20:09)
== END 2020-06-25 21:23 ==
LOC: DL.ED 17:45
DX: K70.31 Alcoholic cirrhosis of liver with ascites (principal); L03.311 Cellulitis of abdominal wall; K21.9 Gastro-esophageal reflux disease without esophagitis; E80.6 Other disorders of bilirubin metabolism; R74.02 Elevation of levels of lactic acid dehydrogenase [LDH]; Z88.6 Allergy status to analgesic agent; Z88.8 Allergy status to other drugs, medicaments and biological substances; Z91.048 Other nonmedicinal substance allergy status; Z79.899 Other long term (current) drug therapy
CPT/HCPCS: 36415; 80053; 80307; 82140; 82150; 83605; 83690; 85025; 87040; 96365; 99285; J3490; J7050; 99284

== ENCOUNTER 2020-07-25 22:05 | Observation (INO) | payer MEDICAID ==
--- NOTE | 2020-07-25 22:51 | EDM.PDOC ---
ED HPI GENERAL MEDICAL PROBLEM - General Stated Complaint: SPLK - AMBULANCE Time Seen by Provider: 07/25/20 22:30 Source of Information: Reports: Patient, Old Records, RN, RN Notes Reviewed History Limitations: Reports: No Limitations - History of Present Illness INITIAL COMMENTS - FREE TEXT/NARRATIVE: Patient presents to the ED via [facility] at the request of her daughter due to confusion. The patient is alert and oriented x4 upon arrival to the ED. The patient reports a history of cirrhosis with ascites; she states her last paracentesis was about 10 days ago, 07/15/20. She states she has been requiring more frequent paracenteses and reports feeling "full" tonight. She denies fever, shaking chills, chest pain/pressure, palpitations, shortness of breath, dyspepsia, nausea, vomiting, diarrhea, melena, or hematochezia. She states she has not been taking her lactulose as it makes her "unable to walk." She denies recent alcohol use and notes her last drink was over a month ago. Abdomen Pain Score (Numeric/FACES): 4 - Related Data Allergies Allergy/AdvReac Type Severity Reaction Status Date / Time acetaminophen Allergy Hives Verified 07/25/20 22:18 [From Comtrex Cold-Cough] dextromethorphan Allergy Hives Verified 07/25/20 22:18 [From Comtrex Cold-Cough] phenylephrine Allergy Hives Verified 07/25/20 22:18 [From Comtrex Cold-Cough] wool Allergy itchy Uncoded 07/25/20 22:18 Home Meds: Home Meds Ferrous Sulfate [Iron] 325 mg PO BID 05/09/18 [History] Pantoprazole Sodium 40 mg PO DAILY 05/09/18 [History] Folic Acid 1 mg PO DAILY 10/12/18 [History] Furosemide 20 mg PO DAILY 01/04/19 [History] Lactulose [Cephulac] 20 gm PO TID 30 Days #90 cup 01/06/19 [Rx] Spironolactone 25 mg PO DAILY 30 Days #30 tablet 01/06/19 [Rx] Ondansetron [Zofran ODT] 4 mg PO Q6H PRN 03/27/19 [History] Rifaximin [Xifaxan] 550 mg PO BID 03/27/19 [History] ursodioL [Ursodiol] 300 mg PO BID 03/27/19 [History] Ciprofloxacin [Cipro XR 500 MG Tablet] 500 mg PO BID 06/25/20 [History] Sucralfate [Carafate] 1 gm PO QID 06/25/20 [History] metroNIDAZOLE [Metronidazole] 500 mg PO TID 06/25/20 [History] Past Medical History - Past Health History Medical/Surgical History: Denies Medical/Surgical History HEENT History: Reports: Epistaxis, Impaired Vision Other HEENT History: wears glasses Cardiovascular History: Reports: None Respiratory History: Reports: None Gastrointestinal History: Reports: Cholelithiasis, Cirrhosis, GERD, GI Bleed Other Gastrointestinal History: liver cirrhosis, gallbladder polyps Genitourinary History: Reports: None 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 martínez fx. Neurological History: Reports: None Psychiatric History: Reports: Addiction Other Psychiatric History: Etoh addiction Endocrine/Metabolic History: Reports: None Hematologic History: Reports: Anemia, Iron Deficiency Immunologic History: Reports: None Oncologic (Cancer) History: Reports: None Dermatologic History: Reports: None - Infectious Disease History Infectious Disease History: Reports: None - Past Surgical History Cardiovascular Surgical History: Reports: None Respiratory Surgical History: Reports: None GI Surgical History: Reports: None Female Surgical History: Reports: None Other Female Surgeries/Procedures: heavy menstrual flow at this time Musculoskeletal Surgical History: Reports: None Social & Family History - Family History Family Medical History: No Pertinent Family History Cardiac: Reports: [place] Endocrine/Metabolic: Reports: Diabetes, type II - Tobacco Use Tobacco Use Status *Q: Never Tobacco User Second Hand Smoke Exposure: No - Caffeine Use Caffeine Use: Reports: Coffee Caffeine Use Comment: occasional use - Recreational Drug Use Recreational Drug Use: No - Living Situation & Occupation Living situation: Reports: with Family Occupation: Unemployed ED ROS GENERAL - Review of Systems Review Of Systems: Comprehensive ROS is negative, except as noted in HPI. ED EXAM, GENERAL - Physical Exam Exam: See Below Exam Limited By: No Limitations General Appearance: Alert, Other (Gross ascites) Eye Exam: Bilateral Eye: EOMI, PERRL (3mm), Other (Scleral icterus) Throat/Mouth: Normal Voice, No Airway Compromise, Other (Vesicular lesions scattered to bottom lip) Head: Atraumatic, Normocephalic Neck: Normal Inspection, Supple, Non-Tender, Full Range of Motion Respiratory/Chest: No Respiratory Distress, Lungs Clear, Normal Breath Sounds, No Accessory Muscle Use, Chest Non-Tender Cardiovascular: Normal Peripheral Pulses, Regular Rate, Rhythm, No Edema, No Gallop, No Rub, JVD, Systolic Murmur (5/6 holosystolic murmur greatest over the pulmonic area; No radiation into carotids) Peripheral Pulses: 2+: Radial (L), Radial (R), Dorsalis Pedis (L), Dorsalis Pedis (R) GI/Abdominal: Distended, Tender (Diffuse tenderness to palpation), Abnormal Bowel Sounds (Hypoactive bowel sounds), Other (Gross ascites) (Female) Exam: Deferred Rectal (Female) Exam: Deferred Back Exam: Normal Inspection. No: CVA Tenderness (L), CVA Tenderness (R) Extremities: Normal Inspection, Normal Range of Motion, Non-Tender, Normal Capillary Refill, No Pedal Edema Neurological: Alert, Oriented, CN II-XII Intact, Normal Cognition, Normal Gait, No Motor/Sensory Deficits Psychiatric: Normal Affect, Normal Mood Skin Exam: Warm, Dry, Intact, No Rash, Jaundice. No: Ecchymosis, Erythema, Mottled, Petechiae #1 Interpretation EKG Date: 07/25/20 Time: 22:21 Rhythm: NSR Rate (Beats/Min): 69 [place]: Normal P-Wave: Present QRS: Normal ST-T: Normal QT: Normal Comparison: No Change EKG Interpretation Comments: NSR; q-wave present in III; No evidence of acute myocardial ischemia Course - Vital Signs Last Recorded V/S: Last Vital Signs Temp 97.9 F 07/25/20 22:05 Pulse 71 07/25/20 22:05 Resp 16 07/25/20 22:05 BP 108/63 07/25/20 22:05 Pulse Ox 99 07/25/20 22:05 - Orders/Labs/Meds Orders: Active Orders 24 hr Category Date Time Status DRUG SCREEN URINE BIORAD [URCHEM] Urgent Lab 07/25/20 22:09 Ordered REFLEX LACTIC ACID YES OR NO [CHEM] Routine Lab 07/25/20 22:59 Received UA RFX SUKI AND CULT IF INDIC [URIN] Stat Lab 02/23/21 22:09 Ordered Labs: Laboratory Tests 07/25/20 07/25/20 07/25/20 Range/Units 22:20 22:20 22:20 WBC 12.7 H (5.0-10.0) 10^3/uL RBC 2.55 L (4.2-5.4) 10^6/uL Hgb 7.8 L (12.0-16.0) g/dL Hct 22.3 L (37.0-47.0) % MCV 87.5 (80-100) fL MCH 30.6 (27.0-34.0) pg MCHC 35.0 (33.0-35.0) g/dL Plt Count 81 L D (150-450) 10^3/uL Neut % (Auto) 82.5 H (42.2-75.2) % Lymph % (Auto) 4.0 L (20.5-50.1) % [place] % (Auto) 8.8 H (2-8) % Eos % (Auto) 3.9 H (1.0-3.0) % Baso % (Auto) 0.8 (0.0-1.0) % PT 25.9 H D (9.0-12.0) SEC INR 2.8 H (0.9-1.2) APTT 59.9 H (22.0-34.0) SEC Sodium 133 L (136-145) mmol/L Potassium 3.4 L (3.5-5.1) mmol/L Chloride 99 (98-107) mmol/L Carbon Dioxide 16 L (21-32) mmol/L Anion Gap 21.4 H (7-13) mEq/L BUN 35 H (7-18) mg/dL Creatinine 4.35 H D (0.55-1.02) mg/dL Est Cr Clr Drug Dosing 14.85 mL/min Estimated GFR (MDRD) 11 BUN/Creatinine Ratio 8.0 (No establ ref range) Glucose 110 H (74-99) mg/dL Lactic Acid (0.4-2.0) mmol/L Calcium 8.8 (8.5-10.1) mg/dL Magnesium 1.9 (1.8-2.4) mg/dL Total Bilirubin 43.3 H (0.2-1.0) mg/dL AST 71 H (15-37) U/L ALT 33 (14-59) U/L Alkaline Phosphatase 89 (46-116) U/L Ammonia (11-32) umol/L Troponin I < 0.017 (0.000-0.056) ng/mL C-Reactive Protein 4.7 H (0.0-0.9) mg/dL B-Natriuretic Peptide 47 (0-100) pg/ml Total Protein 6.3 L (6.4-8.2) g/dL Albumin 2.4 L (3.4-5.0) g/dL Globulin 3.9 Albumin/Globulin Ratio 0.62 Ethyl Alcohol < 3 (0) mg/dL 07/25/20 07/25/20 Range/Units 22:20 22:20 WBC (5.0-10.0) 10^3/uL RBC (4.2-5.4) 10^6/uL Hgb (12.0-16.0) g/dL Hct (37.0-47.0) % MCV (80-100) fL MCH (27.0-34.0) pg MCHC (33.0-35.0) g/dL Plt Count (150-450) 10^3/uL Neut % (Auto) (42.2-75.2) % Lymph % (Auto) (20.5-50.1) % [place] % (Auto) (2-8) % Eos % (Auto) (1.0-3.0) % Baso % (Auto) (0.0-1.0) % PT (9.0-12.0) SEC INR (0.9-1.2) APTT (22.0-34.0) SEC Sodium (136-145) mmol/L Potassium (3.5-5.1) mmol/L Chloride (98-107) mmol/L Carbon Dioxide (21-32) mmol/L Anion Gap (7-13) mEq/L BUN (7-18) mg/dL Creatinine (0.55-1.02) mg/dL Est Cr Clr Drug Dosing mL/min Estimated GFR (MDRD) BUN/Creatinine Ratio (No establ ref range) Glucose (74-99) mg/dL Lactic Acid 2.7 H* (0.4-2.0) mmol/L Calcium (8.5-10.1) mg/dL Magnesium (1.8-2.4) mg/dL Total Bilirubin (0.2-1.0) mg/dL AST (15-37) U/L ALT (14-59) U/L Alkaline Phosphatase (46-116) U/L Ammonia 142 H (11-32) umol/L Troponin I (0.000-0.056) ng/mL C-Reactive Protein (0.0-0.9) mg/dL B-Natriuretic Peptide (0-100) pg/ml Total Protein (6.4-8.2) g/dL Albumin (3.4-5.0) g/dL Globulin Albumin/Globulin Ratio Ethyl Alcohol (0) mg/dL - Re-Assessments/Exams Free Text/Narrative Re-Assessment/Exam: 07/26/20 Alcoholic cirrhosis with ascites: Gross ascites noted to abdomen. Total Bilirubin 43.3, AST elevated at 71, ALT and Alk Phos WNL. Ammonia 142, patient states she is not taking lactulose. Patient will likely require paracentesis soon, but unable to transfer at this time due to weather conditions. She remains vitally stable and is alert/oriented to all spheres. Acute kidney injury noted with creatinine 4.35, BUN 35, and GFR reduced to 11. Patient unable to void at this time; she denies dysuria/hematuria and notes she is still urinating. Anion Gap open at 21.4, CO2 16. Lactic acid elevated at 2.7 and CRP 4.7. Anemia noted with hemoglobin 7.8 and hematocrit of 22.3; patient noted to have chronic anemia with review of records. Patient continues to deny dark, tarry stools, hematemesis, or hematochezia. Coagulopathy also appreciated with platelet of 81, INR 2.8, aPTT 59.9, and PT 25.9. Unable to perform transfer to higher level of care due to weather conditions and inability of ambulance to transport. Will transfer patient [place] as road conditions allow. Case discussed with Dr. Orantes at this facility to kindly agreed to accept patient for referral to observation until patient is able to transport to higher level of care tomorrow. Departure - Departure Time of Disposition: 00:17 Disposition: Refer to Observation Condition: Fair Clinical Impression: Alcoholic cirrhosis of liver with ascites, Thrombocytopenia, Elevated bilirubin, Elevated lactic acid level, Jaundice, Serum ammonia increased, Acute renal injury Anemia Qualifiers: Iron deficiency anemia type: chronic blood loss Qualified Code(s): D50.0 - Iron deficiency anemia secondary to blood loss (chronic) - Discharge Information Sepsis Event Note (ED) - Evaluation Sepsis Screening Result: No Definite Risk - Focused Exam Vital Signs: Vital Signs Temp Pulse Resp BP Pulse Ox 07/25/20 22:05 97.9 F 71 16 108/63 99 - My Orders Last 24 Hours: My Active Orders 07/25/20 22:09 DRUG SCREEN URINE BIORAD [URCHEM] Urgent UA RFX SUKI AND CULT IF INDIC [URIN] Stat 07/25/20 22:59 REFLEX LACTIC ACID YES OR NO [CHEM] Routine - Assessment/Plan Last 24 Hours: My Active Orders 07/25/20 22:09 DRUG SCREEN URINE BIORAD [URCHEM] Urgent UA RFX SUKI AND CULT IF INDIC [URIN] Stat 07/25/20 22:59 REFLEX LACTIC ACID YES OR NO [CHEM] Routine
[2020-07-25 22:54] LABS: PTT,PARTIAL THROMBOPLSTIN TIME 59.9 SEC (22.0-34.0)
[2020-07-25 23:15] LABS: ANION GAP 21.4 mEq/L (7-13); CHLORIDE,CL 99 mmol/L (98-107); SODIUM,NA 133 mmol/L (136-145)
[2020-07-26] MEDS ORDERED: Albumin 25% 12.5 GM/50 ML BAG IV ONE (01:18)
--- NOTE | 2020-07-26 01:20 | PCM.HP ---
H&P History of Present Illness - General Date of Service: 07/26/20 Admit Problem/Dx: Admission Diagnosis/Problem Admission Diagnosis/Problem Alcoholic cirrhosis of liver with ascites Source of Information: Patient History Limitations: Reports: No Limitations - History of Present Illness Initial Comments - Free Text/Narative: Patient is a 45-year-old female with a medical history of alcoholic cirrhosis, ascites, hepatic encephalopathy, chronic anemia, CKD, thrombocytopenia, who presented with abdominal distention and concern for altered mental status. Patient reports that she feels her abdomen is now well distended and has become uncomfortable for her. She denies abdominal pain but reports generalized weakness and progressive difficulty breathing due to abdominal distention. She thinks that she needs to have a paracentesis done. Her last paracentesis was 11 days ago. Since this year, she thinks she has needed paracentesis 3 times. She denies fever. Her daughter is concerned that patient is confused. However, patient is able to answer my questions appropriately. Patient reports missing her medications due to nausea and emesis. Abdomen Pain Score (Numeric/FACES): 4 - Related Data Allergies/Adverse Reactions: Allergies Allergy/AdvReac Type Severity Reaction Status Date / Time acetaminophen Allergy Hives Verified 07/25/20 22:18 [From Comtrex Cold-Cough] dextromethorphan Allergy Hives Verified 07/25/20 22:18 [From Comtrex Cold-Cough] phenylephrine Allergy Hives Verified 07/25/20 22:18 [From Comtrex Cold-Cough] wool Allergy itchy Uncoded 07/25/20 22:18 Home Medications: Home Meds Ferrous Sulfate [Iron] 325 mg PO BID 05/09/18 [History] Pantoprazole Sodium 40 mg PO DAILY 05/09/18 [History] Folic Acid 1 mg PO DAILY 10/12/18 [History] Furosemide 20 mg PO DAILY 01/04/19 [History] Lactulose [Cephulac] 20 gm PO TID 30 Days #90 cup 01/06/19 [Rx] Spironolactone 25 mg PO DAILY 30 Days #30 tablet 01/06/19 [Rx] Ondansetron [Zofran ODT] 4 mg PO Q6H PRN 03/27/19 [History] Rifaximin [Xifaxan] 550 mg PO BID 03/27/19 [History] ursodioL [Ursodiol] 300 mg PO BID 03/27/19 [History] Ciprofloxacin [Cipro XR 500 MG Tablet] 500 mg PO BID 06/25/20 [History] Sucralfate [Carafate] 1 gm PO QID 06/25/20 [History] metroNIDAZOLE [Metronidazole] 500 mg PO TID 06/25/20 [History] Past Medical History - Past Health History Medical/Surgical History: Denies Medical/Surgical History HEENT History: Reports: Epistaxis, Impaired Vision Other HEENT History: wears glasses Cardiovascular History: Reports: None Respiratory History: Reports: None Gastrointestinal History: Reports: Cholelithiasis, Cirrhosis, GERD, GI Bleed Other Gastrointestinal History: liver cirrhosis, gallbladder polyps Genitourinary History: Reports: None [employer] History: Reports: Other OB/BYN History: 05/09/2018 states she is on her monthly and flow has been heavy Musculoskeletal History: Reports: None Other Musculoskeletal History: Rt. finger fx. Neurological History: Reports: None Psychiatric History: Reports: Addiction Other Psychiatric History: Etoh addiction Endocrine/Metabolic History: Reports: None Hematologic History: Reports: Anemia, Iron Deficiency Immunologic History: Reports: None Oncologic (Cancer) History: Reports: None Dermatologic History: Reports: None - Infectious Disease History Infectious Disease History: Reports: None, Chicken Pox, Novel Coronavirus - Past Surgical History Cardiovascular Surgical History: Reports: None Respiratory Surgical History: Reports: None GI Surgical History: Reports: None Female Surgical History: Reports: None Musculoskeletal Surgical History: Reports: None Social & Family History - Family History Family Medical History: No Pertinent Family History Cardiac: Reports: [place] Endocrine/Metabolic: Reports: Diabetes, type II - Tobacco Use Tobacco Use Status *Q: Former Tobacco User Years of Tobacco use: 10 Packs/Tins Daily: 0.3 Used Tobacco, but Quit: Yes Month/Year Tobacco Last Used: jul 2020 Second Hand Smoke Exposure: No - Caffeine Use Caffeine Use: Reports: Coffee, Soda Caffeine Use Comment: occasional use - Alcohol Use Days Per Week of Alcohol Use: 3 Number of Drinks Per Day: 6 Total Drinks Per Week: 18 Date of Last Drink: 07/16/20 - Recreational Drug Use Recreational Drug Use: No - Living Situation & Occupation Living situation: Reports: with Family Occupation: Unemployed H&P Review of Systems - Review of Systems: Review Of Systems: See Below General: Reports: Malaise HEENT: Reports: No Symptoms Pulmonary: Reports: Shortness of Breath Cardiovascular: Reports: No Symptoms Gastrointestinal: Reports: Distension, Nausea, Vomiting Genitourinary: Reports: No Symptoms Musculoskeletal: Reports: No Symptoms Skin: Reports: No Symptoms Psychiatric: Reports: No Symptoms Neurological: Reports: No Symptoms Hematologic/Lymphatic: Reports: No Symptoms Immunologic: Reports: No Symptoms Exam - Exam Exam: See Below - Vital Signs Vital Signs: Last Vital Signs Temp 98.7 F 07/26/20 00:18 Pulse 70 07/26/20 00:18 Resp 18 07/26/20 00:18 BP 91/50 L 07/26/20 00:18 Pulse Ox 99 07/26/20 01:13 Weight: 140 lb - Exam General: Alert, Oriented, 4 HEENT: Conjunctiva Clear, EACs Clear, EOMI, Hearing Intact, Mucosa Moist & Tornado, Nares Patent, Normal Nasal Septum, Posterior Pharynx Clear, TMs Clear, Scleral Icterus, PERRLA Neck: Supple, Trachea Midline, 2 Lungs: Clear to Auscultation, Normal Respiratory Effort Cardiovascular: Regular Rate, Regular Rhythm GI/Abdominal Exam: Normal Bowel Sounds, Soft, Non-Tender, No Organomegaly, No Abnormal Bruit, No Mass, Pelvis Stable, Distended, Hepatomegaly Back Exam: Normal Inspection, Full Range of Motion, NT Extremities: Normal Inspection, Normal Range of Motion, Non-Tender, No Pedal Edema, Normal Capillary Refill Skin: Warm, Dry, Intact Neurological: Cranial Nerves Intact, Reflexes Equal Bilateral Neuro Extensive - Mental Status: Alert, Oriented x3, Normal Mood/Affect, Normal Cognition Neuro Extensive - Motor, Sensory, Reflexes: CN II-XII Intact, Normal Gait, Normal Reflexes Psychiatric: Alert, Normal Affect, Normal Mood - Patient Data Lab Results Last 24 hrs: Laboratory Results - last 24 hr 07/25/20 07/25/20 07/25/20 Range/Units 22:20 22:20 22:20 WBC 12.7 H (5.0-10.0) 10^3/uL RBC 2.55 L (4.2-5.4) 10^6/uL Hgb 7.8 L (12.0-16.0) g/dL Hct 22.3 L (37.0-47.0) % MCV 87.5 (80-100) fL MCH 30.6 (27.0-34.0) pg MCHC 35.0 (33.0-35.0) g/dL Plt Count 81 L D (150-450) 10^3/uL Neut % (Auto) 82.5 H (42.2-75.2) % Lymph % (Auto) 4.0 L (20.5-50.1) % [place] % (Auto) 8.8 H (2-8) % Eos % (Auto) 3.9 H (1.0-3.0) % Baso % (Auto) 0.8 (0.0-1.0) % PT 25.9 H D (9.0-12.0) SEC INR 2.8 H (0.9-1.2) APTT 59.9 H (22.0-34.0) SEC Sodium 133 L (136-145) mmol/L Potassium 3.4 L (3.5-5.1) mmol/L Chloride 99 (98-107) mmol/L Carbon Dioxide 16 L (21-32) mmol/L Anion Gap 21.4 H (7-13) mEq/L BUN 35 H (7-18) mg/dL Creatinine 4.35 H D (0.55-1.02) mg/dL Est Cr Clr Drug Dosing 14.85 mL/min Estimated GFR (MDRD) 11 BUN/Creatinine Ratio 8.0 (No establ ref range) Glucose 110 H (74-99) mg/dL Lactic Acid (0.4-2.0) mmol/L Calcium 8.8 (8.5-10.1) mg/dL Magnesium 1.9 (1.8-2.4) mg/dL Total Bilirubin 43.3 H (0.2-1.0) mg/dL AST 71 H (15-37) U/L ALT 33 (14-59) U/L Alkaline Phosphatase 89 (46-116) U/L Ammonia (11-32) umol/L Troponin I < 0.017 (0.000-0.056) ng/mL C-Reactive Protein 4.7 H (0.0-0.9) mg/dL B-Natriuretic Peptide 47 (0-100) pg/ml Total Protein 6.3 L (6.4-8.2) g/dL Albumin 2.4 L (3.4-5.0) g/dL Globulin 3.9 Albumin/Globulin Ratio 0.62 Ethyl Alcohol < 3 (0) mg/dL 07/25/20 07/25/20 Range/Units 22:20 22:20 WBC (5.0-10.0) 10^3/uL RBC (4.2-5.4) 10^6/uL Hgb (12.0-16.0) g/dL Hct (37.0-47.0) % MCV (80-100) fL MCH (27.0-34.0) pg MCHC (33.0-35.0) g/dL Plt Count (150-450) 10^3/uL Neut % (Auto) (42.2-75.2) % Lymph % (Auto) (20.5-50.1) % [place] % (Auto) (2-8) % Eos % (Auto) (1.0-3.0) % Baso % (Auto) (0.0-1.0) % PT (9.0-12.0) SEC INR (0.9-1.2) APTT (22.0-34.0) SEC Sodium (136-145) mmol/L Potassium (3.5-5.1) mmol/L Chloride (98-107) mmol/L Carbon Dioxide (21-32) mmol/L Anion Gap (7-13) mEq/L BUN (7-18) mg/dL Creatinine (0.55-1.02) mg/dL Est Cr Clr Drug Dosing mL/min Estimated GFR (MDRD) BUN/Creatinine Ratio (No establ ref range) Glucose (74-99) mg/dL Lactic Acid 2.7 H* (0.4-2.0) mmol/L Calcium (8.5-10.1) mg/dL Magnesium (1.8-2.4) mg/dL Total Bilirubin (0.2-1.0) mg/dL AST (15-37) U/L ALT (14-59) U/L Alkaline Phosphatase (46-116) U/L Ammonia 142 H (11-32) umol/L Troponin I (0.000-0.056) ng/mL C-Reactive Protein (0.0-0.9) mg/dL B-Natriuretic Peptide (0-100) pg/ml Total Protein (6.4-8.2) g/dL Albumin (3.4-5.0) g/dL Globulin Albumin/Globulin Ratio Ethyl Alcohol (0) mg/dL Result Diagrams: 07/25/20 22:20 07/25/20 22:20 Problem List Initiated/Reviewed/Updated: Yes Orders Last 24hrs: Active Orders 24 hr Category Date Time Status Admission Diagnosis [ADT] Stat ADT 07/26/20 00:07 Ordered Admission Status [Patient Status] [ADT] Routine ADT 07/26/20 00:07 Active Oxygen Therapy [RC] PRN Care 07/26/20 01:13 Ordered Up ad Apolonia [RC] ASDIRECTED Care 07/26/20 01:12 Ordered VTE/DVT Education [RC] PER UNIT ROUTINE Care 07/26/20 01:13 Ordered Vital Signs [] Q4H Care 07/26/20 01:13 Ordered 2 Gram Sodium Diet [DIET] Diet 07/26/20 Breakfast Ordered DRUG SCREEN URINE BIORAD [URCHEM] Urgent Lab 07/25/20 22:09 Ordered REFLEX LACTIC ACID YES OR NO [CHEM] Routine Lab 07/25/20 22:59 Received UA RFX SUKI AND CULT IF INDIC [URIN] Stat Lab 07/25/20 22:09 Ordered Albumin 25% [Flexbumin 25%] Med 07/26/20 01:18 Ordered 12.5 gm in 50 ml IV ONETIME Furosemide [Lasix] Med 07/26/20 01:17 Ordered 40 mg IVPUSH DAILY Lactulose [Cephulac] Med 07/26/20 01:14 Ordered 20 gm PO TID Pantoprazole [ProTONIX] Med 07/26/20 09:00 Ordered 40 mg PO DAILY Rifaximin [Xifaxan] Med 07/26/20 09:00 Ordered 550 mg PO BID Spironolactone [Spironolactone] Med 07/26/20 09:00 Ordered 25 mg PO DAILY Sucralfate [Carafate] Med 07/26/20 09:00 Ordered 1 gm PO QID Ursodiol Med 07/26/20 09:00 Ordered 300 mg PO BID Resuscitation Status Routine Resus Stat 07/26/20 01:12 Ordered Medication Orders Furosemide (Lasix) 40 mg IVPUSH DAILY JEANNETTE Albumin Human (Flexbumin 25%) 12.5 gm in 50 mls @ 100 mls/hr IV ONETIME ONE Stop: 07/26/20 01:47 Lactulose (Cephulac) 20 gm PO TID ON LICENSE OF [facility] Non-Formulary Medication (Spironolactone [Spironolactone]) 25 mg PO DAILY ON LICENSE OF [facility] Non-Formulary Medication (Ursodiol) 300 mg PO BID ON LICENSE OF [facility] Pantoprazole Sodium (Protonix) 40 mg PO DAILY ON LICENSE OF [facility] Rifaximin (Xifaxan) 550 mg PO BID ON LICENSE OF [facility] Sucralfate (Carafate) 1 gm PO QID ON LICENSE OF [facility] Assessment/Plan Comment:: Decompensated alcoholic cirrhosis Ascites Concern for hepatic encephalopathy Due to reported confusion though patient not confused by my current assessment. Ammonia level elevated at 142. Resume home diuretics. Give patient Lasix 40 mg IV x1 with 25 g of albumin. Strict I's and O's and daily weights Patient needs diagnostic and therapeutic paracentesis EDIE on CKD Hypokalemia Hyponatremia Anion gap metabolic acidosis Creatinine up to 4.35 from 2.21-month ago. Potassium of 3.4. Sodium of 133. Bicarb of 16 and anion gap of 21. Likely prerenal versus hepatorenal Monitor renal function and electrolytes with diuresis Start sodium bicarb tabs 650 mg 3 times daily Chronic anemia Thrombocytopenia Hemoglobin of 7.8 is close to baseline. Platelet of 81. Continue to monitor Leukocytosis Could be stress reaction versus due to SBP. No abdominal pain though not always the case with SBP. Patient went to be transferred to higher acuity hospital for further management including paracentesis. Elevated INR of 2.8. Give 10 mg of IV vitamin K DVT prophylaxis: Ambulate patient CODE STATUS: Full code
[2020-07-26] MEDS: Furosemide 40 MG/4 ML VIAL IVPUSH SCH ×2 (01:28→08:15)
[2020-07-26] MEDS: Lactulose Soln 10 GM/15 ML 30 ML UD Cup PO SCH ×2 (01:28→08:14)
[2020-07-26] MEDS ORDERED: Potassium Chloride 10 MEQ Tab.ER PO ONE (01:31)
[2020-07-26] MEDS ORDERED: Phytonadione 10 MG in Sodium Chloride 0.9% 50 ML IV ONE (01:38)
[2020-07-26] MEDS: Sodium Bicarbonate 650 MG Tab PO SCH ×2 (01:45→08:14)
[2020-07-26] MEDS ORDERED: Sucralfate 1 GM Tab PO SCH (07:00)
[2020-07-26] MEDS ORDERED: URSODIOL 300 MG PO SCH (09:00)
[2020-07-26] MEDS ORDERED: SPIRONOLACTONE 25 MG PO SCH (09:00)
[2020-07-26] MEDS ORDERED: Pantoprazole 40 MG Tab.CR PO SCH (09:00)
[2020-07-26] MEDS ORDERED: Rifaximin 550 MG Tab PO SCH (09:00)
--- NOTE | 2020-07-26 10:04 | PCM.DCSUM1 ---
Discharge Summary - Hospital Course Free Text/Narrative:: Patient is a 45-year-old female with a medical history of alcoholic cirrhosis, ascites, hepatic encephalopathy, chronic anemia, CKD, thrombocytopenia, who presented with abdominal distention and concern for altered mental status. Patient was found to have decompensated cirrhosis with ascites and EDIE. She was transferred to [facility] for further cares. Decompensated alcoholic cirrhosis Ascites Concern for hepatic encephalopathy Due to reported confusion though patient not confused by my current assessment. Ammonia level elevated at 142. Resumed home diuretics. Given patient Lasix 40 mg IV x1 with 25 g of albumin. Strict I's and O's and daily weights Patient needs diagnostic and therapeutic paracentesis EDIE on CKD Hypokalemia Hyponatremia Anion gap metabolic acidosis Creatinine up to 4.35 from 2.21-month ago. Potassium of 3.4. Sodium of 133. Bicarb of 16 and anion gap of 21. Likely prerenal versus hepatorenal Given sodium bicarb tabs 650 mg 3 times daily Chronic anemia Thrombocytopenia Hemoglobin of 7.8 is close to baseline. Platelet of 81. Leukocytosis Could be stress reaction versus due to SBP. No abdominal pain though not always the case with SBP. Patient was transferred to higher acuity hospital for further management including paracentesis. Elevated INR of 2.8. Given 10 mg of IV vitamin K DVT prophylaxis: Ambulate patient CODE STATUS: Full code Diagnosis: Stroke: No - Discharge Data Discharge Date: 07/26/20 Discharge Disposition: DC/Tfer to Acute Hospital 02 Condition: Stable - Referral to Home Health Primary Care Physician: PCP None - Discharge Plan *PRESCRIPTION DRUG MONITORING PROGRAM REVIEWED*: Not Applicable *COPY OF PRESCRIPTION DRUG MONITORING REPORT IN PATIENT TIKI: Not Applicable Home Medications: Home Meds Ferrous Sulfate [Iron] 325 mg PO BID 05/09/18 [History] Pantoprazole Sodium 40 mg PO DAILY 05/09/18 [History] Folic Acid 1 mg PO DAILY 10/12/18 [History] Furosemide 20 mg PO DAILY 01/04/19 [History] Lactulose [Cephulac] 20 gm PO TID 30 Days #90 cup 01/06/19 [Rx] Spironolactone 25 mg PO DAILY 30 Days #30 tablet 01/06/19 [Rx] Ondansetron [Zofran ODT] 4 mg PO Q6H PRN 03/27/19 [History] Rifaximin [Xifaxan] 550 mg PO BID 03/27/19 [History] ursodioL [Ursodiol] 300 mg PO BID 03/27/19 [History] Ciprofloxacin [Cipro XR] 500 mg PO BID 06/25/20 [History] Sucralfate [Carafate] 1 gm PO QID 06/25/20 [History] metroNIDAZOLE [Metronidazole] 500 mg PO TID 06/25/20 [History] Forms: ED Department Discharge Referrals: PCP,Unobtain [Ordering Only Provider] - - Discharge Summary/Plan Comment DC Time >30 min.: Yes - General Info Date of Service: 07/26/20 Admission Dx/Problem (Free Text: Admission Diagnosis/Problem Admission Diagnosis/Problem Alcoholic cirrhosis of liver with ascites Functional Status: Reports: Pain Controlled - Review of Systems General: Reports: Weakness HEENT: Reports: No Symptoms Pulmonary: Reports: No Symptoms Cardiovascular: Reports: No Symptoms Gastrointestinal: Reports: Other (distension) Genitourinary: Reports: No Symptoms Musculoskeletal: Reports: No Symptoms Skin: Reports: No Symptoms Neurological: Reports: No Symptoms Psychiatric: Reports: No Symptoms - Patient Data Vitals - Most Recent: Last Vital Signs Temp 99.1 F 07/26/20 08:19 Pulse 78 07/26/20 08:19 Resp 16 07/26/20 08:19 BP 104/57 L 07/26/20 08:19 Pulse Ox 98 07/26/20 08:19 Weight - Most Recent: 140 lb I&O - Last 24 hours: Intake & Output 07/25/20 07/26/20 07/26/20 22:59 06:59 14:59 Intake Total 386 Output Total 850 Balance -464 Lab Results - Last 24 hrs: Laboratory Results - last 24 hr 07/25/20 07/25/20 07/25/20 Range/Units 22:20 22:20 22:20 WBC 12.7 H (5.0-10.0) 10^3/uL RBC 2.55 L (4.2-5.4) 10^6/uL Hgb 7.8 L (12.0-16.0) g/dL Hct 22.3 L (37.0-47.0) % MCV 87.5 (80-100) fL MCH 30.6 (27.0-34.0) pg MCHC 35.0 (33.0-35.0) g/dL Plt Count 81 L D (150-450) 10^3/uL Neut % (Auto) 82.5 H (42.2-75.2) % Lymph % (Auto) 4.0 L (20.5-50.1) % [place] % (Auto) 8.8 H (2-8) % Eos % (Auto) 3.9 H (1.0-3.0) % Baso % (Auto) 0.8 (0.0-1.0) % PT 25.9 H D (9.0-12.0) SEC INR 2.8 H (0.9-1.2) APTT 59.9 H (22.0-34.0) SEC Sodium 133 L (136-145) mmol/L Potassium 3.4 L (3.5-5.1) mmol/L Chloride 99 (98-107) mmol/L Carbon Dioxide 16 L (21-32) mmol/L Anion Gap 21.4 H (7-13) mEq/L BUN 35 H (7-18) mg/dL Creatinine 4.35 H D (0.55-1.02) mg/dL Est Cr Clr Drug Dosing 14.85 mL/min Estimated GFR (MDRD) 11 BUN/Creatinine Ratio 8.0 (No establ ref range) Glucose 110 H (74-99) mg/dL Lactic Acid (0.4-2.0) mmol/L Calcium 8.8 (8.5-10.1) mg/dL Magnesium 1.9 (1.8-2.4) mg/dL Total Bilirubin 43.3 H (0.2-1.0) mg/dL AST 71 H (15-37) U/L ALT 33 (14-59) U/L Alkaline Phosphatase 89 (46-116) U/L Ammonia (11-32) umol/L Troponin I < 0.017 (0.000-0.056) ng/mL C-Reactive Protein 4.7 H (0.0-0.9) mg/dL B-Natriuretic Peptide 47 (0-100) pg/ml Total Protein 6.3 L (6.4-8.2) g/dL Albumin 2.4 L (3.4-5.0) g/dL Globulin 3.9 Albumin/Globulin Ratio 0.62 Urine Color (YELLOW) Urine Appearance (CLEAR) Urine pH (5.0-9.0) Ur Specific [place] (1.005-1.030) Urine Protein (NEGATIVE) Urine Glucose (UA) (NEGATIVE) Urine Ketones (NEGATIVE) Urine Occult Blood (NEGATIVE) Urine Nitrite (NEGATIVE) Urine Bilirubin (NEGATIVE) Urine Urobilinogen (0.2-1.0) mg/dL Ur Leukocyte Esterase (NEGATIVE) U Hyaline Cast (Auto) Urine RBC /HPF Urine WBC (0-5/HPF) /HPF Ur Epithelial Cells (NOT SEEN) /HPF Urine Bacteria (0-FEW/HPF) /HPF Fine Granular Casts (NOT SEEN) /LPF Urine Mucus (NOT SEEN) /LPF Urine Opiates Screen (NEGATIVE) Ur Oxycodone Screen (NEGATIVE) Urine Methadone Screen (NEGATIVE) Ur Barbiturates Screen (NEGATIVE) U Tricyclic Antidepress (NEGATIVE) Ur Phencyclidine Scrn (NEGATIVE) Ur Amphetamine Screen (NEGATIVE) U Methamphetamines Scrn (NEGATIVE) Urine MDMA Screen (NEGATIVE) U Benzodiazepines Scrn (NEGATIVE) Urine Cocaine Screen (NEGATIVE) U Marijuana (THC) Screen (NEGATIVE) Ethyl Alcohol < 3 (0) mg/dL 07/25/20 07/25/20 07/26/20 Range/Units 22:20 22:20 02:25 WBC (5.0-10.0) 10^3/uL RBC (4.2-5.4) 10^6/uL Hgb (12.0-16.0) g/dL Hct (37.0-47.0) % MCV (80-100) fL MCH (27.0-34.0) pg MCHC (33.0-35.0) g/dL Plt Count (150-450) 10^3/uL Neut % (Auto) (42.2-75.2) % Lymph % (Auto) (20.5-50.1) % [place] % (Auto) (2-8) % Eos % (Auto) (1.0-3.0) % Baso % (Auto) (0.0-1.0) % PT (9.0-12.0) SEC INR (0.9-1.2) APTT (22.0-34.0) SEC Sodium (136-145) mmol/L Potassium (3.5-5.1) mmol/L Chloride (98-107) mmol/L Carbon Dioxide (21-32) mmol/L Anion Gap (7-13) mEq/L BUN (7-18) mg/dL Creatinine (0.55-1.02) mg/dL Est Cr Clr Drug Dosing mL/min Estimated GFR (MDRD) BUN/Creatinine Ratio (No establ ref range) Glucose (74-99) mg/dL Lactic Acid 2.7 H* 1.7 (0.4-2.0) mmol/L Calcium (8.5-10.1) mg/dL Magnesium (1.8-2.4) mg/dL Total Bilirubin (0.2-1.0) mg/dL AST (15-37) U/L ALT (14-59) U/L Alkaline Phosphatase (46-116) U/L Ammonia 142 H (11-32) umol/L Troponin I (0.000-0.056) ng/mL C-Reactive Protein (0.0-0.9) mg/dL B-Natriuretic Peptide (0-100) pg/ml Total Protein (6.4-8.2) g/dL Albumin (3.4-5.0) g/dL Globulin Albumin/Globulin Ratio Urine Color (YELLOW) Urine Appearance (CLEAR) Urine pH (5.0-9.0) Ur Specific [place] (1.005-1.030) Urine Protein (NEGATIVE) Urine Glucose (UA) (NEGATIVE) Urine Ketones (NEGATIVE) Urine Occult Blood (NEGATIVE) Urine Nitrite (NEGATIVE) Urine Bilirubin (NEGATIVE) Urine Urobilinogen (0.2-1.0) mg/dL Ur Leukocyte Esterase (NEGATIVE) U Hyaline Cast (Auto) Urine RBC /HPF Urine WBC (0-5/HPF) /HPF Ur Epithelial Cells (NOT SEEN) /HPF Urine Bacteria (0-FEW/HPF) /HPF Fine Granular Casts (NOT SEEN) /LPF Urine Mucus (NOT SEEN) /LPF Urine Opiates Screen (NEGATIVE) Ur Oxycodone Screen (NEGATIVE) Urine Methadone Screen (NEGATIVE) Ur Barbiturates Screen (NEGATIVE) U Tricyclic Antidepress (NEGATIVE) Ur Phencyclidine Scrn (NEGATIVE) Ur Amphetamine Screen (NEGATIVE) U Methamphetamines Scrn (NEGATIVE) Urine MDMA Screen (NEGATIVE) U Benzodiazepines Scrn (NEGATIVE) Urine Cocaine Screen (NEGATIVE) U Marijuana (THC) Screen (NEGATIVE) Ethyl Alcohol (0) mg/dL 07/26/20 07/26/20 Range/Units 05:48 05:48 WBC (5.0-10.0) 10^3/uL RBC (4.2-5.4) 10^6/uL Hgb (12.0-16.0) g/dL Hct (37.0-47.0) % MCV (80-100) fL MCH (27.0-34.0) pg MCHC (33.0-35.0) g/dL Plt Count (150-450) 10^3/uL Neut % (Auto) (42.2-75.2) % Lymph % (Auto) (20.5-50.1) % [place] % (Auto) (2-8) % Eos % (Auto) (1.0-3.0) % Baso % (Auto) (0.0-1.0) % PT (9.0-12.0) SEC INR (0.9-1.2) APTT (22.0-34.0) SEC Sodium (136-145) mmol/L Potassium (3.5-5.1) mmol/L Chloride (98-107) mmol/L Carbon Dioxide (21-32) mmol/L Anion Gap (7-13) mEq/L BUN (7-18) mg/dL Creatinine (0.55-1.02) mg/dL Est Cr Clr Drug Dosing mL/min Estimated GFR (MDRD) BUN/Creatinine Ratio (No establ ref range) Glucose (74-99) mg/dL Lactic Acid (0.4-2.0) mmol/L Calcium (8.5-10.1) mg/dL Magnesium (1.8-2.4) mg/dL Total Bilirubin (0.2-1.0) mg/dL AST (15-37) U/L ALT (14-59) U/L Alkaline Phosphatase (46-116) U/L Ammonia (11-32) umol/L Troponin I (0.000-0.056) ng/mL C-Reactive Protein (0.0-0.9) mg/dL B-Natriuretic Peptide (0-100) pg/ml Total Protein (6.4-8.2) g/dL Albumin (3.4-5.0) g/dL Globulin Albumin/Globulin Ratio Urine Color [place] (YELLOW) Urine Appearance Clear (CLEAR) Urine pH 6.0 (5.0-9.0) Ur Specific [place] 1.015 (1.005-1.030) Urine Protein Negative (NEGATIVE) Urine Glucose (UA) Negative (NEGATIVE) Urine Ketones Negative (NEGATIVE) Urine Occult Blood Trace-intact H (NEGATIVE) Urine Nitrite Negative (NEGATIVE) Urine Bilirubin Large H (NEGATIVE) Urine Urobilinogen 0.2 (0.2-1.0) mg/dL Ur Leukocyte Esterase Negative (NEGATIVE) U Hyaline Cast (Auto) Few Urine RBC 0-5 /HPF Urine WBC 0-5 (0-5/HPF) /HPF Ur Epithelial Cells Few (NOT SEEN) /HPF Urine Bacteria Few (0-FEW/HPF) /HPF Fine Granular Casts Few H (NOT SEEN) /LPF Urine Mucus Few H (NOT SEEN) /LPF Urine Opiates Screen Negative (NEGATIVE) Ur Oxycodone Screen Positive H (NEGATIVE) Urine Methadone Screen Negative (NEGATIVE) Ur Barbiturates Screen Negative (NEGATIVE) U Tricyclic Antidepress Negative (NEGATIVE) Ur Phencyclidine Scrn Negative (NEGATIVE) Ur Amphetamine Screen Negative (NEGATIVE) U Methamphetamines Scrn Negative (NEGATIVE) Urine MDMA Screen Negative (NEGATIVE) U Benzodiazepines Scrn Negative (NEGATIVE) Urine Cocaine Screen Negative (NEGATIVE) U Marijuana (THC) Screen Negative (NEGATIVE) Ethyl Alcohol (0) mg/dL Med Orders - Current: Current Medications Furosemide (Lasix) 40 mg IVPUSH DAILY [facility] Last Admin: 07/26/20 08:15 Dose: 40 mg Documented by: Lactulose (Cephulac) 20 gm PO TID [facility] Last Admin: 07/26/20 08:14 Dose: 20 gm Documented by: Non-Formulary Medication (Spironolactone [Spironolactone]) 25 mg PO DAILY [facility] Non-Formulary Medication (Ursodiol) 300 mg PO BID [facility] Pantoprazole Sodium (Protonix) 40 mg PO DAILY [facility] Rifaximin (Xifaxan) 550 mg PO BID [facility] Sodium Bicarbonate (Sodium Bicarbonate) 650 mg PO TID [facility] Last Admin: 07/26/20 08:14 Dose: 650 mg Documented by: Sucralfate (Carafate) 1 gm PO QIDACANDBED [facility] Last Admin: 07/26/20 07:44 Dose: 1 gm Documented by: Discontinued Medications Albumin Human (Flexbumin 25%) 12.5 gm in 50 mls @ 100 mls/hr IV ONETIME ONE Stop: 07/26/20 01:47 Last Admin: 07/26/20 01:32 Dose: 100 mls/hr Documented by: Phytonadione 10 mg/ Sodium (Chloride) 51 mls @ 100 mls/hr IV NOW ONE Stop: 07/26/20 02:08 Last Admin: 07/26/20 02:00 Dose: 100 mls/hr Documented by: Potassium Chloride (Klor-Con 10) 40 meq PO ONETIME ONE Stop: 07/26/20 01:32 Last Admin: 07/26/20 01:45 Dose: 40 meq Documented by: - Exam General: Reports: Alert, Oriented HEENT: Reports: Pupils Equal, Pupils Reactive, EOMI, Mucous Membr. Moist/[place], Scleral Icterus Neck: Reports: Supple Lungs: Reports: Clear to Auscultation, Normal Respiratory Effort Cardiovascular: Reports: Regular Rate, Regular Rhythm GI/Abdominal Exam: Normal Bowel Sounds, Soft, Non-Tender, No Organomegaly, No Abnormal Bruit, No Mass, Pelvis Stable, Distended Back Exam: Reports: Normal Inspection, Full Range of Motion Extremities: Normal Inspection, Normal Range of Motion, Non-Tender, No Pedal Edema, Normal Capillary Refill Skin: Reports: Warm, Dry, Intact Neurological: Reports: No New Focal Deficit Psy/Mental Status: Reports: Alert, Normal Affect, Normal Mood
[2020-07-26 10:18] VITALS: BP 105/58; PULSE 77
== END 2020-07-26 10:25 ==
LOC: DL.ED 22:05 → DL.MS 07-26 00:07
PROVIDERS: ADMIT Internal Medicine; ATTEND Internal Medicine
DX: K70.31 Alcoholic cirrhosis of liver with ascites (principal); K72.90 Hepatic failure, unspecified without coma; D64.9 Anemia, unspecified; N18.9 Chronic kidney disease, unspecified; N17.9 Acute kidney failure, unspecified; E87.6 Hypokalemia; E87.1 Hypo-osmolality and hyponatremia; D72.829 Elevated white blood cell count, unspecified; Z79.899 Other long term (current) drug therapy
CPT/HCPCS: 36415; 80053; 80305; 80307; 81001; 82140; 83605; 83735; 83880; 84484; 85025; 85610; 85730; 86140; 93005; 93010; 96365; 96375; 96376; 99284; 99285; A9270; G0378; J1940; J3430; P9047